=== PATIENT | male | born 1950 | race Caucasian/White ===

== ENCOUNTER → 2017-03-14 | Outpatient (CLI) | payer MEDICARE ==
[~2017-03-14] MED LIST: ALDACTONE25 MG PO; ASP325TEC PO; BNZ10T; BNZ20T PO; CLPD75T; CLPD75T PO; DIGO125T91 PO; ESCI20TA2 PO; EZET10TA5 PO; GBPN300C; INSASP10V; ISM30TCR; ISM30TCR PO; LEVEMIR; METH10TA5 PO; METO50TA7 PO; MTF500T; NAPR250T34; NFD30TCR; OXYC60TA9 PO; PNT40TEC; TRM50TRX; VYTORIN; [UNRECOGNIZED DRUG - OTHER]; [UNRECOGNIZED DRUG - OTHER]
--- NOTE | 2017-03-14 16:10 | Diagnostic Imaging Report ---
PA and lateral views of the chest. COMPARISON: 04/29/2014. INDICATION: Shortness of breath. FINDINGS: The heart size is normal. There are CABG changes and pacemaker seen. Suggestion of a left coronary stent is noted. Mild interstitial scarring is seen in the lungs with no focal airspace consolidation. There is slight elevation of the right hemidiaphragm, unchanged from 2013. No effusion or pneumothorax. IMPRESSION: No acute process. Dictated by: Dictated on workstation # [id number]
== END ==
LOC: RAD 12:09
PROVIDERS: ATTEND Internal Medicine Cardiovascular Disease
DX: I25.10 Atherosclerotic heart disease of native coronary artery without angina pectoris (principal); I25.5 Ischemic cardiomyopathy
CPT/HCPCS: 71020

== ENCOUNTER 2017-08-19 14:29 | Observation (INO) | payer MEDICARE ==
[~2017-08-19] VITALS: Ht 185.4 cm; Wt 109.7 kg
[~2017-08-19 14:29] MED LIST changes: +INSASP10V SQ
--- OUTSIDE RECORDS SUMMARY | 2017-08-19 14:37 | XMS REPORT | Continuity of Care Document ---
Author Author [facility] Organization [facility] Address Unknown Phone Unavailable Allergies Active Description Code Type Severity Reaction Onset Reported/Identified Relationship to Patient Clinical Status Yes No Known Drug Allergies [id number] Drug Allergy Unknown N/ A 03/17/2008 Medications Problems Date Dx Coded Attending Type Code Diagnosis Diagnosed By 04/28/2014 ZACKARY PAULINO DO Ot 327.23 OBSTRUCTIVE SLEEP APNEA (ADULT) ( PEDIATR 05/15/2014 ZACKARY PAULINO DO S Ot 327.23 OBSTRUCTIVE SLEEP APNEA (ADULT) ( PEDIATR 10/06/2014 Ot 241.0 03/14/2017 ZACKARY PAULINO DO S Ot 574.20 CHOLELITHIASIS NOS 03/14/2017 SAMI PAULINO DOLINE S Ot 599.70 HEMATURIA, UNSPECIFIED 03/14/2017 JOB PAULINO DOQUELINE S Ot 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 03/14/2017 SAMI PAULINO DOLINE S Ot 789.09 ABDOMINAL PAIN, OTHER SPECIFIED SITE 03/14/2017 SAMI PAULINO DOLINE S Ot 135 SARCOIDOSIS 03/14/2017 SAMI PAULINO DOLINE S Ot 515 POSTINFLAM PULM FIBROSIS 03/14/2017 ZACKARY PAULINO DO S Ot 518.0 PULMONARY COLLAPSE 03/14/2017 SAMI PAULINO DOLINE S Ot 786.09 RESPIRATORY ABNORM NEC 03/14/2017 JOB PAULINO DOQUELINE S Ot 793.19 OTHER NONSPECIFIC ABNORMAL FINDING OF IRA 04/05/2017 CARL GANDHI MD, Ot I25.10 ATHSCL HEART DISEASE OF [place] CORONARY 04/05/2017 CARL GANDHI MD, Ot I25.5 ISCHEMIC CARDIOMYOPATHY 04/12/2017 CARL GANDHI MD, Ot I25.10 ATHSCL HEART DISEASE OF [place] CORONARY 04/12/2017 CARL GANDHI MD Ot I25.5 ISCHEMIC CARDIOMYOPATHY Procedures Results Test Result Range BMP - 07/15/17 11:15 GFR 58 >=60 GFR NonAfrican Kosovan 48 >=60 SODIUM:SCNC:PT:SER/PLAS:QN: 135 mmol/L 136-145 POTASSIUM:SCNC:PT:SER/PLAS:QN: 4.5 mmol/L 3.5-5.1 CHLORIDE:SCNC:PT:SER/PLAS:QN: 100 mmol/L 98-107 CARBON DIOXIDE:SCNC:PT:SER/PLAS:QN: 26 mmol/L 21-32 ANION GAP 3:SCNC:PT:SER/PLAS:QN: 9 7-16 UREA NITROGEN:MCNC:PT:SER/PLAS:QN: 18 mg/dL 8-23 CREATININE:MCNC:PT:SER/PLAS:QN: 1.5 mg/dL 0.8-1.3 GLUCOSE:MCNC:PT:SER/PLAS:QN: 399 mg/dL 70 -110 CALCIUM:MCNC:PT:SER/PLAS:QN: 9.6 mg/dL 8.6-10.2 UREA NITROGEN/CREATININE:MRTO:PT:SER/PLAS:QN: 12.2 10.0-20.1 Glucose POC1 - 07/15/17 14:15 GLUCOSE:MCNC:PT:BLDC:QN:GLUCOMETER 294 mg/dL 74-106 Encounters ACCT No. Visit Date/Time Discharge Status Pt. Type Provider Facility Loc./Unit Complaint [id number] 03/14/2017 12:09:00 2016 23:59:59 CLS Outpatient CARL GADNHI MD [facility] RAD I25.10,I25.5 [id number] 05/14/2014 20:58:00 2013 06:45:00 DIS Outpatient ZACKARY PAULINO DO [facility] SLEEP NORI [id number] 04/29/2014 09:42:00 2013 23:59:59 CLS Outpatient ZACKARY PAULINO DO [facility] RAD HX OF SARCOID ,DYSPENEA [id number] 04/27/2014 20:32:00 08/20/ 2014 05:00:00 DIS Outpatient ZACKARY PAULINO DO [facility] SLEEP NORI,ABNORMAL LIMB MOVEMENT [id number] 08/27/2013 10:06:00 2012 23:59:59 CLS Outpatient ZACKARY PAULINO DO [facility] RAD JESUS FLANK PAIN,HEMATURIA [id number] 08/19/2017 14:31:00 ACT Emergency THALIA CABALLERO APRN [facility] ER CP [id number] 04/28/2010 10:48:00 Document Registration [id number] 07/15/2017 10:26:00 07/15/2017 15: 33:00 DIS Outpatient Carl Scruggs [facility]
[2017-08-19] MEDS ORDERED: ASPIRIN 81 MG CHEW (CHILDREN'S ASA) PO ONE (14:45)
--- NOTE | 2017-08-19 14:53 | ED Chest Pain ---
General Chief Complaint: Chest Pain Stated Complaint: CP Source: patient Exam Limitations: no limitations History of Present Illness Time seen by provider: 14:34 Initial Comments Here with report of central and left-sided chest pain as well as pain to the left posterior chest wall for the last 3-4 days. Had a pacemaker placed last month and has had some left lower chest wall discomfort since then. Arrives significant short of breath and weak. Normally at 3 L of oxygen. States that his breathing has been worse recently and it is much worse when he lays back or with activity. Denies fevers but has chills. Clammy on arrival. Timing/Duration: 3-4 days Severity/Quality: moderate, burning, pressure Location: central, back Radiation: back Activities at Onset: none Prior CP/Workup: cardiac cath, cardiolye scan, echocardiography, heart attack, stress test Modifying Factors: worse with exercise, worse with movement, improves with oxygen, improves with rest ASA po DISBURSING AGENT: Yes NTG SL DISBURSING AGENT: Yes Associated Symptoms: No abdominal pain, back pain, No diaphoresis, No edema, fatigue, fever/chills, No nausea/vomiting, shortness of breath, weakness Allergies and Home Medications Allergies Coded Allergies: No Known Drug Allergies (Verified , 03/17/08) Home Medications Aspirin 325 Mg Tablet, 325 MG PO DAILY, Ref 0 (Reported) Benazepril Hcl 20 Mg Tablet, 20 MG PO BID, Ref 0 (Reported) Clopidogrel 75 Mg Tablet, 1 EACH PO DAILY, Ref 0 (Reported) Digoxin 0.125 Mg Tab, 1 EACH PO BID, (Reported) Escitalopram Oxalate 20 Mg Tablet, 1 EACH PO DAILY, (Reported) Ezetimibe 10 Mg Tablet, 10 MG PO DAILY@0900, (Reported) Insulin Human Lispro 100 U/Ml Vial, Ref 0 (Reported) Isosorbide Mononitrate 30 Mg Tablet, 1 EACH PO BID, Ref 0 (Reported) Methimazole 10 Mg Tablet, 10 MG PO BID, (Reported) Metoprolol Succinate 50 Mg Tab, 50 MG PO DAILY, (Reported) Oxycodone Hcl 60 Mg Tab.sr.12h, 60 MG PO BID, (Reported) Spironolactone 25 Mg Tablet, 25 MG PO DAILY, (Reported) Review of Systems Constitutional: see HPI, chills, No fever, weakness EENTM: No Symptoms Reported Respiratory: See HPI, Orthopnea, Shortness of Air, SOA With Exertion, Denies Wheezing Cardiovascular: Chest Pain, Irregular Heart Rate, Lightheadedness Gastrointestinal: No Symptoms Reported, Denies Nausea, Denies Vomiting Genitourinary: Denies Flank Pain, Denies Pain Musculoskeletal: see HPI, back pain (left low chest wall), No neck pain Skin: other (pale and cool) Psychiatric/Neurological: See HPI, Denies Headache, Weakness All Other Systems Reviewed Negative Unless Noted: Yes Past Fdtddya-Zieqvt-Argygs Hx Patient Social History Alcohol Use: Denies Use Recreational Drug Use: No Smoking Status: Former Smoker Recent Foreign Travel: No Contact w/Someone Who Travel: No Surgeries History of Surgeries: Yes (lungs surgery) Surgeries: Cardiac, Defibrillator, Pacemaker Respiratory History of Respiratory Disorde: Yes (sarcoidosis) Respiratory Disorders: Chronic Bronchitis Cardiovascular History of Cardiac Disorders: Yes Cardiac Disorders: Atrial Fibrillation, Coronary Artery Disease (all), Heart Attack, High Cholesterol, Hypertension, Irregular Heartbeat Neurological History of Neurological Disord: Yes Neurological Disorders: TIA Reproductive System Hx Reproductive Disorders: No Genitourinary History of Genitourinary Disor: No Gastrointestinal History of Gastrointestinal Di: No Endocrine History of Endocrine Disorders: Yes Endocrine Disorders: Diabetes, Insulin dep Reviewed Nursing Assessment Reviewed/Agree w Nursing PMH: Yes Family Medical History Significant Family History: No Pertinent Family Hx Physical Exam Vital Signs Vital Sign - Last 12Hours 08/19/17 14:50 Temp 97.0 Pulse 97 Resp 26 B/P (MAP) 127/91 (103) Pulse Ox 98 O2 Delivery Nasal Cannula O2 Flow Rate 3.00 FiO2 100 Capillary Refill : General Appearance: No Apparent Distress, WD/WN HEENT: PERRL/EOMI, Pharynx Normal Neck: Non Tender, Supple Respiratory: Decreased Breath Sounds, Respiratory Distress (appears short of breath) Cardiovascular: No Murmur, Other (irregular heartbeat with PVCs on the monitor) Gastrointestinal: Non Tender Extremity: Normal Inspection, Normal Range of Motion, Non Tender, No Calf Tenderness Neurologic/Psychiatric: Alert, Oriented x3 Skin: Normal Color, Warm/Dry Focused Exam Evaluation Lactate Level Laboratory Tests 08/19/17 14:50: Lactic Acid Level 3.07*H 08/19/17 17:05: Lactic Acid Level 2.40*H Lactic Acid Level Laboratory Tests Test 08/19/17 14:50 08/19/17 17:05 Lactic Acid Level 3.07 MMOL/L (0.50-2.00) *H 2.40 MMOL/L (0.50-2.00) *H Progress/Results/Core Measures Results/Orders Lab Results Laboratory Tests Test 08/19/17 14:43 08/19/17 14:50 08/19/17 16:15 08/19/17 17:05 Range/Units Glucometer 232 H 70-110 MG/DL White Blood Count 7.5 4.3-11.0 10^3/uL Red Blood Count 5.65 4.35-5.85 10^6/uL Hemoglobin 15.7 13.3-17.7 G/DL Hematocrit 47 40-54 % Mean Corpuscular Volume 84 80-99 FL Mean Corpuscular Hemoglobin 28 25-34 PG Mean Corpuscular Hemoglobin Concent 33 32-36 G/DL Red Cell Distribution Width 13.4 10.0-14.5 % Platelet Count 190 130-400 10^3/uL Mean Platelet Volume 11.0 H 7.4-10.4 FL Neutrophils (%) (Auto) 71 42-75 % Lymphocytes (%) (Auto) 20 12-44 % Monocytes (%) (Auto) 8 0-12 % Eosinophils (%) (Auto) 1 0-10 % Basophils (%) (Auto) 0 0-10 % Neutrophils # (Auto) 5.3 1.8-7.8 X 10^3 Lymphocytes # (Auto) 1.5 1.0-4.0 X 10^3 Monocytes # (Auto) 0.6 0.0-1.0 X 10^3 Eosinophils # (Auto) 0.1 0.0-0.3 10^3/uL Basophils # (Auto) 0.0 0.0-0.1 10^3/uL Prothrombin Time 17.5 H 12.2-14.7 SEC INR Comment 1.4 0.8-1.4 Activated Partial Thromboplast Time 34 24-35 SEC Sodium Level 139 135-145 MMOL/L Potassium Level 3.9 3.6-5.0 MMOL/L Chloride Level 103 98-107 MMOL/L Carbon Dioxide Level 24 21-32 MMOL/L Anion Gap 12 5-14 MMOL/L Blood Urea Nitrogen 13 7-18 MG/DL Creatinine 1.13 0.60-1.30 MG/DL Estimat Glomerular Filtration Rate > 60 BUN/Creatinine Ratio 12 Glucose Level 280 H 70-105 MG/DL Lactic Acid Level 3.07 *H 2.40 *H 0.50-2.00 MMOL/L Calcium Level 9.2 8.5-10.1 MG/DL Magnesium Level 1.5 L 1.8-2.4 MG/DL Total Bilirubin 0.4 0.1-1.0 MG/DL Aspartate Amino Transf (AST/SGOT) 20 5-34 U/L Alanine Aminotransferase (ALT/SGPT) 22 0-55 U/L Alkaline Phosphatase 81 40-136 U/L Myoglobin 52.5 10.0-92.0 NG/ML Troponin I < 0.30 <0.30 NG/ML B-Type Natriuretic Peptide 127.6 H <100.0 PG/ML Total Protein 7.5 6.4-8.2 GM/DL Albumin 4.0 3.2-4.5 GM/DL Digoxin Level < 0.30 L 0.80-2.00 NG/ML Urine Color YELLOW Urine Clarity CLEAR Urine pH 5 5-9 Urine Specific [place] 1.020 1.016-1.022 Urine Protein 2+ H NEGATIVE Urine Glucose (UA) 4+ H NEGATIVE Urine Ketones NEGATIVE NEGATIVE Urine Nitrite NEGATIVE NEGATIVE Urine Bilirubin NEGATIVE NEGATIVE Urine Urobilinogen NORMAL NORMAL MG/DL Urine Leukocyte Esterase NEGATIVE NEGATIVE Urine RBC (Auto) 1+ H NEGATIVE Urine RBC 2-5 H /HPF Urine WBC NONE /HPF Urine Squamous Epithelial Cells 0-2 /HPF Urine Crystals NONE /LPF Urine Bacteria NEGATIVE /HPF Urine Casts NONE /LPF Urine Mucus NEGATIVE /LPF Urine Culture Indicated NO My Orders Orders - TJ BURROUGHS MD Digoxin (08/19/17 14:38) Blood Culture (08/19/17 14:38) Lactic Acid Analyzer (08/19/17 14:38) BNP (08/19/17 14:56) Ua Culture If Indicated (08/19/17 15:17) Accucheck Stat ONCE (08/19/17 15:24) Ct Chest Wo (08/19/17 16:42) Lipase (08/19/17 17:31) Solu-Medrol 125 Mg Iv (08/19/17 17:48) Medications Given in ED Current Medications Medications Dose Ordered Sig/Ede Route Start Time Stop Time Status Last Admin Dose Admin Aspirin 324 mg ONCE ONCE PO 08/19/17 14:45 08/19/17 14:46 DC 08/19/17 15:20 324 MG Vital Signs/I&O Vital Sign - Last 12Hours 08/19/17 08/19/17 08/19/17 14:50 14:50 14:50 Temp 97.0 Pulse 97 Resp 26 B/P (MAP) 127/91 (103) Pulse Ox 98 96 O2 Delivery Nasal Cannula Nasal Cannula Nasal Cannula O2 Flow Rate 3.00 3.00 3.00 FiO2 100 Progress Note : Progress Note Seen and evaluated. IV, labs, EKG and chest x-ray ordered. ASA 324 mg by mouth. Blood cultures and lactic acid ordered due to patient being cool and clammy and has history of pacemaker placement within the last month and a half. Diabetes is out of control. Blood sugar 230s on fingerstick. Monitor patient. 1735: I did discuss the case with Dr. Petty. Patient has history of sarcoidosis and CT scan of the chest would indicate there may be some flare to this. This would account for patient's symptoms. Also has cholelithiasis and lipase added. This seems to be a secondary finding and not necessarily what is going on currently. Patient admits that he also believes he has COPD and smoked heavily for 40 years although has quit now. In discussion with Dr. Petty, we will initiate steroid therapy overnight and control his blood sugars and converted him to orals tomorrow in an attempt to improve his symptoms. We can also give him fluids and recheck as lactic acid. All of this was discussed with patient and family who agree with plan. Admit observation status. Solu-Medrol 125 mg IV times one now. ECG Initial ECG Impression Date: Aug 19, 2017 Initial ECG Impression Time: 14:34 Initial ECG Rate: 98 Initial ECG Rhythm: S.Tach Comment Sinus tachycardia with multifocal PVCs. Normal axis. No Evidence of ST elevation SD. Underlying rhythm similar to previous of 17 August 2010. Interpreted by me. Diagnostic Imaging Diagonstic Imaging: Xray Plain Films/CT/US/NM/MRI: chest Comments [facility] [place], [place] NAME: RYAN SAMPSON [facility] REC#: [id number] PT STATUS: REG ER : 1950 PHYSICIAN: THALIA CABALLERO APRN ADMIT DATE: 08/19/17/ER Draft Date of Exam:08/19/17 CHEST 1 VIEW, AP/PA ONLY INDICATION: Left-sided chest pain. Shortness of air. COMPARISON: 03/14/2017. FINDINGS: Single frontal radiographic view of the chest was obtained and demonstrates normal cardiac silhouette and pulmonary vasculature. Sternotomy wires and left-sided AICD are noted. Lungs show areas of scarring and/or atelectasis, but otherwise clear. There is no large effusion or pneumothorax. Bony structures show no gross acute abnormalities. IMPRESSION: 1. No acute cardiopulmonary process. Dictated on workstation # [id number] Dict: 08/19/17 1511 Trans: 08/19/17 1516 [facility] [id number] Interpreted by: NGA CORBIN MD Electronically signed by: Diagonstic Imaging: CT Plain Films/CT/US/NM/MRI: chest Comments ADMIT DATE: 08/19/17/ER Draft Date of Exam:08/19/17 CT CHEST WO PROCEDURE: CT chest without contrast. TECHNIQUE: Multiple contiguous axial images were obtained through the chest without the use of intravenous contrast. INDICATION: Left posterior chest pain, history of sarcoidosis status post open heart surgery. Shortness of air when lying down. COMPARISON: Chest x-ray from the same day. FINDINGS: The left-sided AICD leads appear in stable position. There is coronary atherosclerosis. Sternotomy wires and post CABG changes are noted. The heart is stable in size. No pericardial effusion is seen. There are scattered mildly prominent mediastinal lymph nodes including a 12 mm right upper paratracheal lymph node and an 11 mm left aortopulmonary window lymph node. Linear atelectasis or scarring is seen in the right midlung. There is minimal atelectasis in the dependent lungs bilaterally. No pulmonary nodules or masses are identified. No pleural effusion or pneumothorax is seen. No acute osseous abnormality is identified. 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 The imaged portions of the upper abdomen demonstrate cholelithiasis and fatty atrophy of the pancreas. There is elevation of the right hemidiaphragm. IMPRESSION: 1. Mild mediastinal lymphadenopathy, likely related to the patient's history of sarcoidosis. 2. No acute pulmonary abnormality seen. There is atelectasis in the right midlung. 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 4. Cholelithiasis. Dictated on workstation # [id number] Dict: 08/19/171707 Trans: 08/19/171715 [id number] Interpreted by: VINOD GRAVES MD Electronically signed by: Departure Communication (Admissions) Time/Spoke to Admitting Phy: 17:40 Impression Impression: Primary Impression: Sarcoidosis of lung with sarcoidosis of lymph nodes Additional Impression: Hyperglycemia Disposition: ADMITTED INPATIENT Condition: Stable Admissions Decision to Admit Reason: Admit from ER (General) Decision to Admit/Date: Aug 19, 2017 Time/Decision to Admit Time: 17:40 Departure-Patient Inst. Referrals: ZACKARY PETTY DO (PCP/Family) Primary Care Physician TJ BURROUGHS MD Aug 19, 2017 14:53
[2017-08-19 15:07] LABS: BASOPHILS % (AUTO) 0 % (0-10); EOSINOPHILS # (AUTO) 0.1 10^3/uL (0.0-0.3); EOSINOPHILS % (AUTO) 1 % (0-10); LYMPHOCYTES # (AUTO) 1.5 X 10^3 (1.0-4.0); LYMPHOCYTES % (AUTO) 20 % (12-44); MEAN CORPUSCULAR HEMOGLOBIN 28 PG (25-34); MEAN CORPUSCULAR HGB CONC 33 G/DL (32-36); MEAN CORPUSCULAR VOLUME 84 FL (80-99); MONOCYTES # (AUTO) 0.6 X 10^3 (0.0-1.0); MONOCYTES % (AUTO) 8 % (0-12); NEUTROPHILS # (AUTO) 5.3 X 10^3 (1.8-7.8); NEUTROPHILS % (AUTO) 71 % (42-75); PLATELET COUNT 190 10^3/uL (130-400); RED BLOOD COUNT 5.65 10^6/uL (4.35-5.85); RED CELL DISTRIBUTION WIDTH 13.4 % (10.0-14.5); WHITE BLOOD COUNT 7.5 10^3/uL (4.3-11.0)
--- NOTE | 2017-08-19 15:16 | Diagnostic Imaging Report ---
INDICATION: Left-sided chest pain. Shortness of air. COMPARISON: 03/14/2017. FINDINGS: Single frontal radiographic view of the chest was obtained and demonstrates normal cardiac silhouette and pulmonary vasculature. Sternotomy wires and left-sided AICD are noted. Lungs show areas of scarring and/or atelectasis, but otherwise clear. There is no large effusion or pneumothorax. Bony structures show no gross acute abnormalities. IMPRESSION: 1. No acute cardiopulmonary process. Dictated by: Dictated on workstation # [id number]
[2017-08-19 15:20] LABS: INR 1.4 (0.8-1.4); PROTHROMBIN TIME PATIENT 17.5 SEC (12.2-14.7)
[2017-08-19 15:26] LABS: ALANINE AMINOTRANSFERASE 22 U/L (0-55); ANION GAP 12 MMOL/L (5-14); ASPARTATE AMINO TRANSFERASE 20 U/L (5-34); BILIRUBIN,TOTAL 0.4 MG/DL (0.1-1.0); BLOOD UREA NITROGEN 13 MG/DL (7-18); BUN/CREATININE RATIO 12; CALCIUM 9.2 MG/DL (8.5-10.1); CARBON DIOXIDE 24 MMOL/L (21-32); CHLORIDE 103 MMOL/L (98-107); CREATININE SERUM 1.13 MG/DL (0.60-1.30); GFR ESTIMATED > 60; GLUCOSE 280 MG/DL (70-105); MAGNESIUM 1.5 MG/DL (1.8-2.4); POTASSIUM 3.9 MMOL/L (3.6-5.0); SODIUM 139 MMOL/L (135-145); TOTAL PROTEIN 7.5 GM/DL (6.4-8.2)
[2017-08-19 15:33] LABS: MYOGLOBIN SERUM 52.5 NG/ML (10.0-92.0)
[2017-08-19 16:21] LABS: BILIRUBIN,URINE NEGATIVE (NEGATIVE); KETONES,URINE NEGATIVE (NEGATIVE); LEUKOCYTE ESTERASE ,URINE NEGATIVE (NEGATIVE); NITRITE,URINE NEGATIVE (NEGATIVE); PH,URINE 5 (5-9); PROTEIN,URINE 2+ (NEGATIVE); UROBILINOGEN,URINE NORMAL (NORMAL)
[2017-08-19 16:36] LABS: SQUAMOUS EPITHELIAL CELL,UR 0-2 /HPF
--- NOTE | 2017-08-19 17:17 | Diagnostic Imaging Report ---
PROCEDURE: CT chest without contrast. TECHNIQUE: Multiple contiguous axial images were obtained through the chest without the use of intravenous contrast. INDICATION: Left posterior chest pain, history of sarcoidosis status post open heart surgery. Shortness of air when lying down. COMPARISON: Chest x-ray from the same day. FINDINGS: The left-sided AICD leads appear in stable position. There is coronary atherosclerosis. Sternotomy wires and post CABG changes are noted. The heart is stable in size. No pericardial effusion is seen. There are scattered mildly prominent mediastinal lymph nodes including a 12 mm right upper paratracheal lymph node and an 11 mm left aortopulmonary window lymph node. Linear atelectasis or scarring is seen in the right midlung. There is minimal atelectasis in the dependent lungs bilaterally. No pulmonary nodules or masses are identified. No pleural effusion or pneumothorax is seen. No acute osseous abnormality is identified. 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 The imaged portions of the upper abdomen demonstrate cholelithiasis and fatty atrophy of the pancreas. There is elevation of the right hemidiaphragm. IMPRESSION: 1. Mild mediastinal lymphadenopathy, likely related to the patient's history of sarcoidosis. 2. No acute pulmonary abnormality seen. There is atelectasis in the right midlung. 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 4. Cholelithiasis. Dictated by: Dictated on workstation # [id number]
[2017-08-19] MEDS ORDERED: methylPREDNISolone 125 MG (Solu-MEDROL) VIAL IV STA (17:48)
[2017-08-19 18:40] VITALS: BP 165/72
[2017-08-19] MEDS ORDERED: TAMS0.4C2 PO (19:02)
[2017-08-19] MEDS ORDERED: DIGO125T PO (19:02)
[2017-08-19] MEDS ORDERED: RIVA20TA PO (19:02)
[2017-08-19] MEDS ORDERED: MORP-34 PO (19:02)
[2017-08-19] MEDS ORDERED: ASPI-999 PO (19:02)
[2017-08-19] MEDS ORDERED: OXYC-465 PO (19:02)
[2017-08-19] MEDS ORDERED: PANT40TA3 PO (19:02)
[2017-08-19] MEDS ORDERED: FINA5TAB6 PO (19:02)
[2017-08-19] MEDS ORDERED: INSU100V SQ (19:10)
[2017-08-19] MEDS ORDERED: ONDANSETRON 4 MG/2 ML (SDV) Z0FRAN IV PRN (19:30)
[2017-08-19] MEDS ORDERED: CATHETER FLUSH 10 ML SYR IV PRN (19:30)
[2017-08-19 20:00] VITALS: BP 157/76
[2017-08-19] MEDS ORDERED: RT-ALBUTEROL/IPRATROPIUM 3 ML (DUONEB) VIAL INH PRN (20:00)
[2017-08-19] MEDS: NS IV 1000 ML 1,000 ML IV SCH (20:35)
[2017-08-20] VITALS: BP 148/67
[2017-08-20] MEDS: methylPREDNISolone 125 MG (Solu-MEDROL) VIAL IV SCH ×2 (01:38→10:31)
[2017-08-20 04:21] VITALS: BP 151/80
[2017-08-20] MEDS: NS IV 1000 ML 1,000 ML IV SCH ×2 (04:31→11:41)
[2017-08-20 05:44] LABS: BASOPHILS % (AUTO) 0 % (0-10); EOSINOPHILS % (AUTO) 0 % (0-10); LYMPHOCYTES # (AUTO) 0.9 X 10^3 (1.0-4.0); LYMPHOCYTES % (AUTO) 9 % (12-44); MEAN CORPUSCULAR HEMOGLOBIN 28 PG (25-34); MEAN CORPUSCULAR HGB CONC 33 G/DL (32-36); MEAN CORPUSCULAR VOLUME 84 FL (80-99); MEAN PLATELET VOLUME 11.3 FL (7.4-10.4); MONOCYTES # (AUTO) 0.1 X 10^3 (0.0-1.0); MONOCYTES % (AUTO) 1 % (0-12); NEUTROPHILS # (AUTO) 9.3 X 10^3 (1.8-7.8); NEUTROPHILS % (AUTO) 91 % (42-75); PLATELET COUNT 190 10^3/uL (130-400); RED BLOOD COUNT 5.42 10^6/uL (4.35-5.85); RED CELL DISTRIBUTION WIDTH 13.3 % (10.0-14.5); WHITE BLOOD COUNT 10.3 10^3/uL (4.3-11.0)
[2017-08-20 06:00] LABS: BAND NEUTROPHILS 0 %; BASOPHILS % (MANUAL) 0 %; EOSINOPHILS % (MANUAL) 0 %; LYMPHOCYTES % (MANUAL) 5 %; NEUTROPHILS % (MANUAL) 91 %; REACTIVE LYMPHOCYTES 4 %
[2017-08-20 06:03] LABS: ALANINE AMINOTRANSFERASE 17 U/L (0-55); ALBUMIN 3.9 GM/DL (3.2-4.5); ANION GAP 12 MMOL/L (5-14); ASPARTATE AMINO TRANSFERASE 16 U/L (5-34); BILIRUBIN,TOTAL 0.5 MG/DL (0.1-1.0); BLOOD UREA NITROGEN 17 MG/DL (7-18); BUN/CREATININE RATIO 15; CALCIUM 9.2 MG/DL (8.5-10.1); CARBON DIOXIDE 21 MMOL/L (21-32); CHLORIDE 103 MMOL/L (98-107); CHOLESTEROL 100 MG/DL (< 200); CREATININE SERUM 1.12 MG/DL (0.60-1.30); GFR ESTIMATED > 60; GLUCOSE 317 MG/DL (70-105); POTASSIUM 4.2 MMOL/L (3.6-5.0); SODIUM 136 MMOL/L (135-145); TOTAL PROTEIN 6.9 GM/DL (6.4-8.2); TRIGLYCERIDES 35 MG/DL (<150); VLDL CHOLESTEROL 7 MG/DL (5-40)
[2017-08-20 06:04] LABS: DIRECT LDL 39 MG/DL (1-129)
[2017-08-20] MEDS: RT-ALBUTEROL/IPRATROPIUM 3 ML (DUONEB) VIAL INH SCH ×2 (07:58→11:33)
[2017-08-20 08:00] VITALS: BP 147/70
[2017-08-20 12:00] VITALS: BP 137/62
[2017-08-20] MEDS ORDERED: PRD20T PO (12:21)
[2017-08-20] MEDS ORDERED: IPRA3AMP INH (12:21)
[2017-08-20] MEDS ORDERED: PATIENT MAY USE OWN MEDS, ALL MC SCH (12:30)
[2017-08-20] MEDS ORDERED: oxyCODONE/APAP 10/325MG (PERCOCET 10) TABLET PO PRN (12:30)
[2017-08-20 13:30] VITALS: BP 137/62
[2017-08-20] MEDS ORDERED: NON-FORMULARY MEDICATION 1 EA EA (Tamsulosin HCl 0.4 MG) PO SCH (17:00)
[2017-08-20] MEDS ORDERED: DIGOXIN 0.125 MG (LANOXIN) TAB PO SCH (17:00)
[2017-08-20] MEDS ORDERED: RIVAROXABAN 20 MG TABLET (XARELTO) PO SCH (17:00)
[2017-08-20] MEDS ORDERED: PANTOPRAZOLE 40 MG (PROTONIX) TAB PO SCH (17:00)
[2017-08-20] MEDS ORDERED: morphine ER 30 MG (MS CONTIN) TAB PO SCH (17:00)
[2017-08-20] MEDS ORDERED: NON-FORMULARY MEDICATION 1 EA EA (Finasteride 5 MG) PO SCH (17:00)
[2017-08-20] MEDS ORDERED: ASPIRIN 81 MG CHEW (CHILDREN'S ASA) PO SCH (17:00)
--- NOTE | 2017-08-20 20:21 | Short Stay Summary ---
History of Present Illness History of Present Illness Reason for visit/HPI This is a 67 year old male with a history of CAD as well as sarcoidosis who presented to the emergency room with complaint of left sided chest pain radiating through to his back and shortness of air worse with lying down. He had a recent pacemaker replacement and has had some chest discomfort since this procedure but the shortness of air just started in the last few days and has worsened. His cardiac enzymes were negative and his CXR and CT scan of the chest just showed mediastinal lymphadenopathy consistent with his known history of sarcoid. His blood sugar was elevated in the emergency room and the patient admitted to noncompliance with his diet. It was felt that he was likely having a flare-up of his sarcoid so IV steroids were given and it was decided to admit him for observation. His lactic acid was elevated but this was felt to be secondary to hypoxia and not sepsis. Date of Admission Aug 19, 2017 at 5:45 pm Date of Discharge Aug 20, 2017 at 1:30 pm Time Seen by Provider: 08:45 Attending Physician Dolores Petty DO Admitting Physician Dolores Petty DO Consult Allergies and Home Medications Allergies Coded Allergies: No Known Drug Allergies (Verified , 03/17/08) Home Medications Aspirin 81 Mg Tab.chew, 81 MG PO 1700, (Reported) Digoxin 125 Mcg Tablet, 125 MCG PO [id number]@1700, (Reported) Finasteride 5 Mg Tablet, 5 MG PO 1700, (Reported) Insulin Lispro 100 Unit/1 Ml Vial, Unknown Dose SQ 5XD, (Reported) USES VIA INSULIN PUMP Ipratropium/Albuterol Sulfate 3 Ml Ampul.neb, 3 ML INH RTQID, #50 Prescribed by: DOLORES PETTY on 08/20/17 1221 Morphine Sulfate 30 Mg Tablet.er, 60 MG PO 1700, (Reported) TAKES 2 (30 MG) TABLETS Oxycodone HCl/Acetaminophen 1 Each Tablet, 2 TAB PO Q6H PRN for PAIN-MODERATE, ( Reported) Pantoprazole Sodium 40 Mg Tablet.dr, 40 MG PO 1700, (Reported) Prednisone 20 Mg Tab, 20 MG PO UD, #18 TID for 3 days then BID for 3 days then daily for 3 days Prescribed by: DOLORES PETTY on 08/20/17 1221 Rivaroxaban 20 Mg Tablet, 20 MG PO 1700, (Reported) Tamsulosin HCl 0.4 Mg Cap.er.24h, 0.4 MG PO 1700, (Reported) Past Zcufbtd-Rbqnpi-Sawygp Hx Patient Social History Alcohol Use: Denies Use Recreational Drug Use: No Smoking Status: Former Smoker Former Smoker, Quit: May 20, 2001 Type Used: Cigarettes Physical Abuse Screen: No Sexual Abuse: No Recent Foreign Travel: No Contact w/other who traveled: No Recent Hopitalizations: No Recent Infectious Disease Expo: No Immunizations Up To Date Date of Pneumonia Vaccine: Jun 23, 2014 Date of Influenza Vaccine: Jun 11, 2017 Seasonal Allergies Seasonal Allergies: No Surgeries Yes (BYPASS X2, BACK, SHOULDER , NERVE RELEASE ON RIGHT ELBOW) Cardiac, Defibrillator, Pacemaker Respiratory Yes (sarcoidosis) Currently Using CPAP: No Currently Using BIPAP: Yes Cardiovascular Yes Atrial Fibrillation, Coronary Artery Disease (all), Heart Attack, High Cholesterol, Hypertension, Irregular Heartbeat Neurological Yes TIA Reproductive System Hx Reproductive Disorders: No Genitourinary No Gastrointestinal No Musculoskeletal Yes Chronic Back Pain Endocrine History of Endocrine Disorders: Yes Endocrine Disorders: Diabetes, Insulin dep Are Your Blood Sugars Over 250: Yes HEENT History of HEENT Disorders: No Cancer No Psychosocial History of Psychiatric Problem: Yes Behavioral Health Disorders: Depression Integumentary History of Skin or Integumenta: No Blood Transfusions History of Blood Disorders: No Reviewed Nursing Assessment Reviewed/Agree w Nursing PMH: Yes Family Medical History Significant Family History: No Pertinent Family Hx Family Hx: Arthritis 19 FATHER 19 MOTHER G8 SISTER G8 SISTER G8 SISTER Cataracts G8 SISTER Diabetes mellitus G8 SISTER G8 SISTER Constitutional: weakness EENTM: No see HPI, No no symptoms reported, No ear discharge, No hearing loss, No ear pain, No blurred vision, No double vision, No eye pain, No tearing, No vision loss, No dental problems, No hoarseness, No mouth pain, No mouth swelling , No epistaxis, No nose congestion, No nose pain, No throat pain, No throat swelling, No other Respiratory: cough, orthopnea, short of breath Cardiovascular: chest pain Gastrointestinal: No RUQ, No LUQ, No RLQ, No LLQ, No no symptoms reported, No see HPI, No abdominal pain, No constipation, No diarrhea, No dysphagia, No hematemesis, No heartburn, No jaundice, No loss of appetite, No melena, No nausea, No vomiting, No other Genitourinary: No no symptoms reported, No see HPI, No decreased output, No discharge, No dysuria, No frequency, No hematuria, No hesitancy, No incontinence , No nocturia, No pain, No other Musculoskeletal: back pain Skin: No no symptoms reported, No see HPI, No change in color, No change in hair/nails, No dryness, No hx of skin cancer, No lesions, No lumps, No pruritus , No rash, No other Psychiatric/Neurological: Weakness Physical Exam Vital Signs Vital Sign - Last 12Hours 08/19/17 14:50 Temp 97.0 Pulse 97 Resp 26 B/P (MAP) 127/91 (103) Pulse Ox 98 O2 Delivery Nasal Cannula O2 Flow Rate 3.00 FiO2 100 Capillary Refill : Less Than 3 Seconds General Appearance: No Apparent Distress Neck: Supple Respiratory: Lungs Clear Cardiovascular: Regular Rate, Rhythm, Systolic Murmur, Gallop/S4 Gastrointestinal: Normal Bowel Sounds, Non Tender, Soft Rectal: Deferred Back: No CVA Tenderness Extremity: Non Tender, No Calf Tenderness, No Pedal Edema Neurologic/Psychiatric: Alert, Oriented x3 Skin: Warm/Dry Comments Laboratory Tests 08/19/17 21:04: Glucometer 320H 08/20/17 05:18: White Blood Count 10.3, Red Blood Count 5.42, Hemoglobin 14.9, Hematocrit 46, Mean Corpuscular Volume 84, Mean Corpuscular Hemoglobin 28, Mean Corpuscular Hemoglobin Concent 33, Red Cell Distribution Width 13.3, Platelet Count 190, Mean Platelet Volume 11.3H, Neutrophils (%) (Auto) 91H, Lymphocytes (%) (Auto) 9L, Monocytes (%) (Auto) 1, Eosinophils (%) (Auto) 0, Basophils (%) (Auto) 0, Neutrophils # (Auto) 9.3H, Lymphocytes # (Auto) 0.9L, Monocytes # (Auto) 0.1, Eosinophils # (Auto) 0.0, Basophils # (Auto) 0.0, Neutrophils % (Manual) 91, Lymphocytes % (Manual) 5, Monocytes % (Manual) 0, Eosinophils % (Manual) 0, Basophils % (Manual) 0, Band Neutrophils 0, Reactive Lymphocytes 4, Toxic Granulation 1+, Sodium Level 136, Potassium Level 4.2, Chloride Level 103, Carbon Dioxide Level 21, Anion Gap 12, Blood Urea Nitrogen 17, Creatinine 1.12, Estimat Glomerular Filtration Rate > 60, BUN/Creatinine Ratio 15, Glucose Level 317H, Lactic Acid Level 1.90, Calcium Level 9.2, Total Bilirubin 0.5, Aspartate Amino Transf (AST/SGOT) 16, Alanine Aminotransferase (ALT/SGPT) 17, Alkaline Phosphatase 97, Total Protein 6.9, Albumin 3.9, Triglycerides Level 35, Cholesterol Level 100, LDL Cholesterol Direct 39, VLDL Cholesterol 7, HDL Cholesterol 47 08/20/17 10:39: Glucometer 351H Microbiology 08/19/17 Blood Culture - Preliminary, Resulted No growth Clinical Quality Measures AMI/AHF: ASA po Prior to arrival: Yes DVT/VTE Risk/Contraindication: Risk Factor Score Per Nursin RFS Level Per Nursing on Admit: 4+=Very High Short Stay Diagnosis Discharge Diagnosis-Short Stay Admission Diagnosis: 1. Chest Pain, noncardiac--likely chest wall from recent pacemaker replacement 2. Dyspnea from exacerbation of Sarcoid--has resolved with IV steroids 3. Diabetes mellitus, insulin requiring--uncontrolled and noncompliant 4. Elevated Lactic Acid due to Hypoxia--resolved, no signs of sepsis Final Discharge Diagnosis: 1. Chest Pain, noncardiac--likely chest wall from recent pacemaker replacement 2. Dyspnea from exacerbation of Sarcoid--has resolved with IV steroids 3. Diabetes mellitus, insulin requiring--uncontrolled and noncompliant 4. Elevated Lactic Acid due to Hypoxia--resolved, no signs of sepsis Conclusion Labs Laboratory Tests 08/19/17 21:04: Glucometer 320H 08/20/17 05:18: White Blood Count 10.3, Red Blood Count 5.42, Hemoglobin 14.9, Hematocrit 46, Mean Corpuscular Volume 84, Mean Corpuscular Hemoglobin 28, Mean Corpuscular Hemoglobin Concent 33, Red Cell Distribution Width 13.3, Platelet Count 190, Mean Platelet Volume 11.3H, Neutrophils (%) (Auto) 91H, Lymphocytes (%) (Auto) 9L, Monocytes (%) (Auto) 1, Eosinophils (%) (Auto) 0, Basophils (%) (Auto) 0, Neutrophils # (Auto) 9.3H, Lymphocytes # (Auto) 0.9L, Monocytes # (Auto) 0.1, Eosinophils # (Auto) 0.0, Basophils # (Auto) 0.0, Neutrophils % (Manual) 91, Lymphocytes % (Manual) 5, Monocytes % (Manual) 0, Eosinophils % (Manual) 0, Basophils % (Manual) 0, Band Neutrophils 0, Reactive Lymphocytes 4, Toxic Granulation 1+, Sodium Level 136, Potassium Level 4.2, Chloride Level 103, Carbon Dioxide Level 21, Anion Gap 12, Blood Urea Nitrogen 17, Creatinine 1.12, Estimat Glomerular Filtration Rate > 60, BUN/Creatinine Ratio 15, Glucose Level 317H, Lactic Acid Level 1.90, Calcium Level 9.2, Total Bilirubin 0.5, Aspartate Amino Transf (AST/SGOT) 16, Alanine Aminotransferase (ALT/SGPT) 17, Alkaline Phosphatase 97, Total Protein 6.9, Albumin 3.9, Triglycerides Level 35, Cholesterol Level 100, LDL Cholesterol Direct 39, VLDL Cholesterol 7, HDL Cholesterol 47 08/20/17 10:39: Glucometer 351H Microbiology 08/19/17 Blood Culture - Preliminary, Resulted No growth Conclusion/Plan Patient was admitted for observation to the medical floor and given IV solumedrol. His dyspnea and chest pain resolved completely with the IV solumedrol. His blood sugar did spike after the IV solumedrol but he states his blood sugar has been running high at home as well due to eating Ruthie candy. His lactic acid came back to normal and by the morning of discharge he was anxious to go home. It was decided to discharge him home on all his current home medications with the addition of a prednisone taper, duoneb breathing treatments and increase in his daytime pump settings for his insulin. He will followup with me in my office on August 31 which was his already scheduled appointment. DOLORES PETTY DO Aug 20, 2017 8:21 pm
== END 2017-08-20 12:22 | disposition home or self-care (01) ==
LOC: EDUNIT# 14:29 → ER 14:31 → 4TH 17:45 → UNDOADMOB 17:45 → 4TH 18:45 → UNDODISOB 08-20 13:30
PROVIDERS: ADMIT Family Medicine; ATTEND Family Medicine
DX: R07.89 Other chest pain (principal); D86.9 Sarcoidosis, unspecified; R09.02 Hypoxemia; I25.10 Atherosclerotic heart disease of native coronary artery without angina pectoris; E11.65 Type 2 diabetes mellitus with hyperglycemia; I48.91 Unspecified atrial fibrillation; I10 Essential (primary) hypertension; E78.00 Pure hypercholesterolemia, unspecified; F32.9 Major depressive disorder, single episode, unspecified; I25.2 Old myocardial infarction; Z91.11 Patient's noncompliance with dietary regimen; Z87.891 Personal history of nicotine dependence; Z86.73 Personal history of transient ischemic attack (TIA), and cerebral infarction without residual deficits; Z95.810 Presence of automatic (implantable) cardiac defibrillator; Z95.1 Presence of aortocoronary bypass graft; Z79.4 Long term (current) use of insulin
CPT/HCPCS: 36415; 71010; 71250; 80053; 80061; 80162; 81000; 82962; 83605; 83690; 83735; 83874; 83880; 84484; 85007; 85025; 85027; 85610; 85730; 87040; 93005; 93041; 94640; 94760; 96374; G0378

== ENCOUNTER 2017-11-07 16:00 | Emergency (ER) | payer MEDICARE ==
[~2017-11-07] VITALS: Ht 185.4 cm; Wt 111.6 kg
[~2017-11-07 16:00] MED LIST changes: +ASPI-999 PO; +DIGO125T PO; +FINA5TAB6 PO; +INSU100V SQ; +IPRA3AMP INH; +MORP-34 PO; +OXYC-465 PO; +PANT40TA3 PO; +PRD20T PO; +RIVA20TA PO; +TAMS0.4C2 PO
--- OUTSIDE RECORDS SUMMARY | 2017-11-07 16:05 | XMS REPORT | Continuity of Care Document ---
Author Author [facility] Organization [facility] Address Unknown Phone Unavailable Allergies Active Description Code Type Severity Reaction Onset Reported/Identified Relationship to Patient Clinical Status Yes No Known Drug Allergies [id number] Drug Allergy Unknown N/A 03/17/2008 Medications There is no data. Problems Date Dx Coded Attending Type Code Diagnosis Diagnosed By 04/28/2014 ZACKARY PAULINO DO Ot 327.23 OBSTRUCTIVE SLEEP APNEA (ADULT) (PEDIATR 05/15/2014 ZACKARY PAULINO DO S Ot 327.23 OBSTRUCTIVE SLEEP APNEA (ADULT) (PEDIATR 10/06/2014 Ot 241.0 03/14/2017 ZACKARY PAULINO DO S Ot 574.20 CHOLELITHIASIS NOS 03/14/2017 SAMI PAULINO DOLINE S Ot 599.70 HEMATURIA, UNSPECIFIED 03/14/2017 JOB PAULINO DOQUELINE S Ot 600.00 HYPERTROPHY (BENIGN) OF PROSTATE W/O URI 03/14/2017 SAMI PAULINO DOLINE S Ot 789.09 ABDOMINAL PAIN, OTHER SPECIFIED SITE 03/14/2017 SAMI PAULINO DOLINE S Ot 135 SARCOIDOSIS 03/14/2017 SAMI PAULINO DOLINE S Ot 515 POSTINFLAM PULM FIBROSIS 03/14/2017 ZACKARY PAULINO DO S Ot 518.0 PULMONARY COLLAPSE 03/14/2017 JOB PAULINO DOQUELINE S Ot 786.09 RESPIRATORY ABNORM NEC 03/14/2017 JOB PAULINO DOQUELINE S Ot 793.19 OTHER NONSPECIFIC ABNORMAL FINDING OF [place] 04/05/2017 OKSANA GONZÁLES, CARL Arnold Ot I25.10 ATHSCL HEART DISEASE OF [place] CORONARY 04/05/2017 CARL GANDHI MD Ot I25.5 ISCHEMIC CARDIOMYOPATHY 04/12/2017 CARL GANDHI MD Ot I25.10 ATHSCL HEART DISEASE OF [place] CORONARY 04/12/2017 OKSANA GONZÁLES, CARL Arnold Ot I25.5 ISCHEMIC CARDIOMYOPATHY 08/20/2017 ZACKARY PAULINO DO S Ot D86.9 SARCOIDOSIS, UNSPECIFIED 08/20/2017 SAMI PAULINO DOLINE S Ot E11.65 TYPE 2 DIABETES MELLITUS WITH HYPERGLYCE 08/20/2017 SAMI PAULINO DOLINE S Ot E78.00 PURE HYPERCHOLESTEROLEMIA, UNSPECIFIED 08/20/2017 SAMI PAULINO DOLINE S Ot F32.9 MAJOR DEPRESSIVE DISORDER, SINGLE EPISOD 08/20/2017 SAMI PAULINO DOLINE S Ot I10 ESSENTIAL (PRIMARY) HYPERTENSION 08/20/2017 SAMI PAULINO DOLINE S Ot I25.10 ATHSCL HEART DISEASE OF [place] CORONARY 08/20/2017 SAMI PAULINO DOLINE S Ot I25.2 OLD MYOCARDIAL INFARCTION 08/20/2017 SAMI PAULINO DOLINE S Ot I48.91 UNSPECIFIED ATRIAL FIBRILLATION 08/20/2017 SAMI PAULINO DOLINE S Ot R07.89 OTHER CHEST PAIN 08/20/2017 SAMI PAULINO DOLINE S Ot R09.02 HYPOXEMIA 08/20/2017 SAMI PAULINO DOLINE S Ot Z79.4 GLOBAL REGULATORY LEAD (CURRENT) USE OF INSULIN 08/20/2017 SAMI PAULINO DOLINE S Ot Z86.73 PRSNL HX OF TIA (TIA), AND CEREB INFRC W 08/20/2017 SAMI PAULINO DOLINE S Ot Z87.891 PERSONAL HISTORY OF NICOTINE DEPENDENCE 08/20/2017 ZACKARY PAULINO DO S Ot Z91.11 PATIENT'S NONCOMPLIANCE WITH DIETARY REG 08/20/2017 SAMI PAULINO DOLINE S Ot Z95.1 PRESENCE OF AORTOCORONARY BYPASS GRAFT 08/20/2017 SAMI PAULINO DOLINE S Ot Z95.810 PRESENCE OF AUTOMATIC (IMPLANTABLE) CARD Procedures There is no data. Results Test Result Range BMP - 07/15/17 11:15 GFR 58 >=60 GFR NonAfrican [place] 48 >=60 SODIUM:SCNC:PT:SER/PLAS:QN: 135 mmol/L 136-145 POTASSIUM:SCNC:PT:SER/PLAS:QN: 4.5 mmol/L 3.5-5.1 CHLORIDE:SCNC:PT:SER/PLAS:QN: 100 mmol/L 98-107 [place] DIOXIDE:SCNC:PT:SER/PLAS:QN: 26 mmol/L 21-32 ANION GAP 3:SCNC:PT:SER/PLAS:QN: 9 7-16 UREA NITROGEN:MCNC:PT:SER/PLAS:QN: 18 mg/dL 8-23 CREATININE:MCNC:PT:SER/PLAS:QN: 1.5 mg/dL 0.8-1.3 GLUCOSE:MCNC:PT:SER/PLAS:QN: 399 mg/dL 70-110 CALCIUM:MCNC:PT:SER/PLAS:QN: 9.6 mg/dL 8.6-10.2 UREA NITROGEN/CREATININE:MRTO:PT:SER/PLAS:QN: 12.2 10.0- 20.1 Glucose POC1 - 07/15/17 14:15 GLUCOSE:MCNC:PT:BLDC:QN:GLUCOMETER 294 mg/dL 74-106 Capillary blood glucose measurement by glucometer (mass/volume) - 08/19/17 14: 43 Capillary blood glucose measurement by glucometer (mass/volume) 232 mg/dL 70-110 Complete blood count (CBC) with automated white blood cell (WBC) differential - 08/19/17 14:50 Blood leukocytes automated count (number/volume) 7.5 10*3/uL 4.3-11.0 Blood erythrocytes automated count (number/volume) 5.65 10*6/uL 4.35-5.85 Venous blood hemoglobin measurement (mass/volume) 15.7 g/dL 13.3-17.7 Blood hematocrit (volume fraction) 47 % 40-54 Automated erythrocyte mean corpuscular volume 84 [foz_us] 80-99 Automated erythrocyte mean corpuscular hemoglobin (mass per erythrocyte) 28 pg 25-34 Automated erythrocyte mean corpuscular hemoglobin concentration measurement ( mass/volume) 33 g/dL 32-36 Automated erythrocyte distribution width ratio 13.4 % 10.0-14.5 Automated blood platelet count (count/volume) 190 10*3/uL 130-400 Automated blood platelet mean volume measurement 11.0 [foz_us] 7.4-10.4 Automated blood neutrophils/100 leukocytes 71 % 42-75 Automated blood lymphocytes/100 leukocytes 20 % 12-44 Blood monocytes/100 leukocytes 8 % 0-12 Automated blood eosinophils/100 leukocytes 1 % 0-10 Automated blood basophils/100 leukocytes 0 % 0-10 Blood neutrophils automated count (number/volume) 5.3 10*3 1.8-7.8 Blood lymphocytes automated count (number/volume) 1.5 10*3 1.0-4.0 Blood monocytes automated count (number/volume) 0.6 10*3 0.0-1.0 Automated eosinophil count 0.1 10*3/uL 0.0-0.3 Automated blood basophil count (count/volume) 0.0 10*3/uL 0.0-0.1 Blood lactic acid measurement (moles/volume) - 08/19/17 14:50 Blood lactic acid measurement (moles/volume) 3.07 mmol/L 0.50-2.00 Comprehensive metabolic panel - 08/19/17 14:50 Serum or plasma sodium measurement (moles/volume) 139 mmol/L 135-145 Serum or plasma potassium measurement (moles/volume) 3.9 mmol/L 3.6-5.0 Serum or plasma chloride measurement (moles/volume) 103 mmol/L 98-107 Carbon dioxide 24 mmol/L 21-32 Serum or plasma anion gap determination (moles/volume) 12 mmol/L 5-14 Serum or plasma urea nitrogen measurement (mass/volume) 13 mg/dL 7-18 Serum or plasma creatinine measurement (mass/volume) 1.13 mg/dL 0.60-1.30 Serum or plasma urea nitrogen/creatinine mass ratio 12 NRG Serum or plasma creatinine measurement with calculation of estimated glomerular filtration rate > NRG Serum or plasma glucose measurement (mass/volume) 280 mg/dL 70-105 Serum or plasma calcium measurement (mass/volume) 9.2 mg/dL 8.5-10.1 Serum or plasma total bilirubin measurement (mass/volume) 0.4 mg/dL 0.1-1.0 Serum or plasma alkaline phosphatase measurement (enzymatic activity/volume) 81 U/L 40-136 Serum or plasma aspartate aminotransferase measurement (enzymatic activity/ volume) 20 U/L 5-34 Serum or plasma alanine aminotransferase measurement (enzymatic activity/volume ) 22 U/L 0-55 Serum or plasma protein measurement (mass/volume) 7.5 g/dL 6.4-8.2 Serum or plasma albumin measurement (mass/volume) 4.0 g/dL 3.2-4.5 Magnesium - 08/19/17 14:50 Magnesium 1.5 mg/dL 1.8-2.4 PT panel in platelet poor plasma by coagulation assay - 08/19/17 14:50 Prothrombin time (PT) in platelet poor plasma by coagulation assay 17.5 s 12.2-14.7 INR in platelet poor plasma or blood by coagulation assay 1.4 0.8-1.4 Activated partial thromboplastin time (aPTT) in platelet poor plasma bycoagulation assay - 08/19/17 14:50 Activated partial thromboplastin time (aPTT) in platelet poor plasma bycoagulation assay 34 s 24-35 Serum or plasma troponin i.cardiac measurement (mass/volume) - 08/19/17 14:50 Serum or plasma troponin i.cardiac measurement (mass/volume) < ng/ mL <0.30 Myoglobin, serum - 08/19/17 14:50 Myoglobin, serum 52.5 ng/mL 10.0-92.0 Digoxin - 08/19/17 14:50 Digoxin < ng/mL 0.80-2.00 Serum or plasma lithium measurement (moles/volume) - 08/19/17 14:50 BNP level 127.6 pg/mL <100.0 Lipase - 08/19/17 14:50 Lipase 16 U/L 8-78 Bacterial blood culture - 08/19/17 14:50 Bacterial blood culture NG NRG Bacterial blood culture - 08/19/17 15:34 Bacterial blood culture NG NRG Complete urinalysis with reflex to culture - 08/19/17 16:15 Urine color determination YELLOW NRG Urine clarity determination CLEAR NRG Urine pH measurement by test strip 5 5-9 Specific gravity of urine by test strip 1.020 1.016- 1.022 Urine protein assay by test strip, semi-quantitative 2+ NEGATIVE Urine glucose detection by automated test strip 4+ NEGATIVE Erythrocytes detection in urine sediment by light microscopy 1+ NEGATIVE Urine ketones detection by automated test strip NEGATIVE NEGATIVE Urine nitrite detection by test strip NEGATIVE NEGATIVE Urine total bilirubin detection by test strip NEGATIVE NEGATIVE Urine urobilinogen measurement by automated test strip (mass/volume) NORMAL NORMAL Urine leukocyte esterase detection by dipstick NEGATIVE NEGATIVE Automated urine sediment erythrocyte count by microscopy (number/high power field) [HPF] NRG Automated urine sediment leukocyte count by microscopy (number/high power field ) NONE NRG Bacteria detection in urine sediment by light microscopy NEGATIVE NRG Squamous epithelial cells detection in urine sediment by light microscopy 0-2 NRG Crystals detection in urine sediment by light microscopy NONE NRG Casts detection in urine sediment by light microscopy NONE NRG Mucus detection in urine sediment by light microscopy NEGATIVE NRG Complete urinalysis with reflex to culture NO NRG Serum or plasma lactate measurement (moles/volume) - 08/19/17 17:05 Serum or plasma lactate measurement (moles/volume) 2.40 mmol/L 0.50-2.00 Capillary blood glucose measurement by glucometer (mass/volume) - 08/19/17 21: 04 Capillary blood glucose measurement by glucometer (mass/volume) 320 mg/dL 70-110 Complete blood count (CBC) with automated white blood cell (WBC) differential - 08/20/17 05:18 Blood leukocytes automated count (number/volume) 10.3 10*3/uL 4.3-11.0 Blood erythrocytes automated count (number/volume) 5.42 10*6/uL 4.35-5.85 Venous blood hemoglobin measurement (mass/volume) 14.9 g/dL 13.3-17.7 Blood hematocrit (volume fraction) 46 % 40-54 Automated erythrocyte mean corpuscular volume 84 [foz_us] 80-99 Automated erythrocyte mean corpuscular hemoglobin (mass per erythrocyte) 28 pg 25-34 Automated erythrocyte mean corpuscular hemoglobin concentration measurement ( mass/volume) 33 g/dL 32-36 Automated erythrocyte distribution width ratio 13.3 % 10.0-14.5 Automated blood platelet count (count/volume) 190 10*3/uL 130-400 Automated blood platelet mean volume measurement 11.3 [foz_us] 7.4-10.4 Automated blood neutrophils/100 leukocytes 91 % 42-75 Automated blood lymphocytes/100 leukocytes 9 % 12-44 Blood monocytes/100 leukocytes 1 % 0-12 Automated blood eosinophils/100 leukocytes 0 % 0-10 Automated blood basophils/100 leukocytes 0 % 0-10 Blood neutrophils automated count (number/volume) 9.3 10*3 1.8-7.8 Blood lymphocytes automated count (number/volume) 0.9 10*3 1.0-4.0 Blood monocytes automated count (number/volume) 0.1 10*3 0.0-1.0 Automated eosinophil count 0.0 10*3/uL 0.0-0.3 Automated blood basophil count (count/volume) 0.0 10*3/uL 0.0-0.1 Blood lactic acid measurement (moles/volume) - 08/20/17 05:18 Blood lactic acid measurement (moles/volume) 1.90 mmol/L 0.50-2.00 Blood manual differential performed detection - 08/20/17 05:18 Blood monocytes/100 leukocytes 0 % NRG Manual blood segmented neutrophils/100 leukocytes 91 % NRG Blood band neutrophils/100 leukocytes 0 % NRG Manual blood lymphocytes/100 leukocytes 5 % NRG Manual eosinophils/100 leukocytes in nose 0 % NRG Manual blood basophils/100 leukocytes 0 % NRG Blood lymphocytes variant/100 leukocytes 4 % NRG Blood toxic granules detection by light microscopy 1+ NRG Comprehensive metabolic panel - 08/20/17 05:18 Serum or plasma sodium measurement (moles/volume) 136 mmol/L 135-145 Serum or plasma potassium measurement (moles/volume) 4.2 mmol/L 3.6-5.0 Serum or plasma chloride measurement (moles/volume) 103 mmol/L 98-107 Carbon dioxide 21 mmol/L 21-32 Serum or plasma anion gap determination (moles/volume) 12 mmol/L 5-14 Serum or plasma urea nitrogen measurement (mass/volume) 17 mg/dL 7-18 Serum or plasma creatinine measurement (mass/volume) 1.12 mg/dL 0.60-1.30 Serum or plasma urea nitrogen/creatinine mass ratio 15 NRG Serum or plasma creatinine measurement with calculation of estimated glomerular filtration rate > NRG Serum or plasma glucose measurement (mass/volume) 317 mg/dL 70-105 Serum or plasma calcium measurement (mass/volume) 9.2 mg/dL 8.5-10.1 Serum or plasma total bilirubin measurement (mass/volume) 0.5 mg/dL 0.1-1.0 Serum or plasma alkaline phosphatase measurement (enzymatic activity/volume) 97 U/L 40-136 Serum or plasma aspartate aminotransferase measurement (enzymatic activity/ volume) 16 U/L 5-34 Serum or plasma alanine aminotransferase measurement (enzymatic activity/volume ) 17 U/L 0-55 Serum or plasma protein measurement (mass/volume) 6.9 g/dL 6.4-8.2 Serum or plasma albumin measurement (mass/volume) 3.9 g/dL 3.2-4.5 Lipid 1996 panel - 08/20/17 05:18 Serum or plasma triglyceride measurement (mass/volume) 35 mg/dL <150 Serum or plasma cholesterol measurement (mass/volume) 100 mg/dL < 200 Serum or plasma cholesterol in HDL measurement (mass/volume) 47 mg/ dL 40-60 Cholesterol in LDL [mass/volume] in serum or plasma by direct assay 39 mg/dL 1-129 Serum or plasma cholesterol in VLDL measurement (mass/volume) 7 mg/ dL 5-40 Capillary blood glucose measurement by glucometer (mass/volume) - 08/20/17 10: 39 Capillary blood glucose measurement by glucometer (mass/volume) 351 mg/dL 70-110 Encounters ACCT No. Visit Date/Time Discharge Status Pt. Type Provider Facility Loc./Unit Complaint [id number] 08/19/2017 17:45:00 08/20/2017 13:30:00 DIS Inpatient JOB PAULINO DOQUELINE S [facility] 4TH SARCOIDOSIS, HYPERGLYCEMIA [id number] 03/14/2017 12:09:00 03/14/2017 23:59:59 CLS Outpatient OKSANA GONZÁLES, CARL Arnold [facility] RAD I25.10,I25.5 [id number] 05/14/2014 20:58:00 05/15/2014 06:45:00 DIS Outpatient JEFFERSON SCHMID ZACKARY S [facility] SLEEP NORI [id number] 04/29/2014 09:42:00 04/29/2014 23:59:59 CLS Outpatient ANGELANDGORDO SCHMID ZACKARY S [facility] RAD HX OF SARCOID , DYSPENEA [id number] 04/27/2014 20:32:00 04/28/2014 05:00:00 DIS Outpatient JEFFERSON SCHMID ZACKARY S [facility] SLEEP NORI,ABNORMAL LIMB MOVEMENT [id number] 08/27/2013 10:06:00 08/27/2013 23:59:59 CLS Outpatient JEFFERSON SCHMID ZACKARY S [facility] RAD JESUS FLANK PAIN, HEMATURIA [id number] 04/28/2010 10:48:00 Document Registration [id number] 07/15/2017 10:26:00 07/15/2017 15:33:00 DIS Outpatient Carl Scruggs [facility] SDS
[2017-11-07] MEDS ORDERED: NS IV 1000 ML 1,000 ML IV SCH ×2 (16:45→18:00)
--- NOTE | 2017-11-07 16:51 | ED General ---
General Chief Complaint: Oral/Throat Problems Stated Complaint: TROUBLE SWALLOWING, VOICE GOING, SWEATY Nursing Triage Note: pt presents to ed with complaints of hoarsness in voice, tiredness, and difficulty swallowing x 2 weeks. pt has hx of sarcoidosis and reports this feels similiar to when he started to get sick with an episode in the past. Nursing Sepsis Screen: No Definite Risk Source of Information: Patient Exam Limitations: No Limitations History of Present Illness Date Seen by Provider: Nov 07, 2017 Time Seen by Provider: 16:45 Initial Comments So but I went to ER with reports of "scratchy throat", fatigue, productive cough worse than usual. Patient does wear oxygen at home at 2 L per nasal cannula [id number]. History of COPD. Also has a history of sarcoidosis. Last time he had an episode like this he was given steroids and had significant improvement. This began with the flu about a month ago Timing/Duration: 1-2 Days Severity: Moderate Associated Systoms: Malaise Allergies and Home Medications Allergies Coded Allergies: No Known Drug Allergies (Verified , 03/17/08) Home Medications Aspirin 81 Mg Tab.chew, 81 MG PO 1700, (Reported) Digoxin 125 Mcg Tablet, 125 MCG PO MoTuWeThFrSa@1700, (Reported) Finasteride 5 Mg Tablet, 5 MG PO 1700, (Reported) Insulin Lispro 100 Unit/1 Ml Vial, Unknown Dose SQ 5XD, (Reported) USES VIA INSULIN PUMP Ipratropium/Albuterol Sulfate 3 Ml Ampul.neb, 3 ML INH RTQID Prescribed by: ZACKARY PAULINO on 08/20/17 1221 Morphine Sulfate 30 Mg Tablet.er, 60 MG PO 1700, (Reported) TAKES 2 (30 MG) TABLETS Oxycodone HCl/Acetaminophen 1 Each Tablet, 2 TAB PO Q6H PRN for PAIN-MODERATE, ( Reported) Pantoprazole Sodium 40 Mg Tablet.dr, 40 MG PO 1700, (Reported) Prednisone 20 Mg Tab, 20 MG PO UD TID for 3 days then BID for 3 days then daily for 3 days Prescribed by: ZACKARY PAULINO on 08/20/17 1221 Prednisone 10 Mg Tab, 60 MG PO DAILY Prescribed by: THALIA CABALLERO on 11/07/17 1827 Rivaroxaban 20 Mg Tablet, 20 MG PO 1700, (Reported) Tamsulosin HCl 0.4 Mg Cap.er.24h, 0.4 MG PO 1700, (Reported) Patient Home Medication List Home Medication List Reviewed: Yes Constitutional: see HPI, No chills, No fever, malaise, weakness EENTM: see HPI Respiratory: see HPI, cough Genitourinary: no symptoms reported Musculoskeletal: no symptoms reported Skin: no symptoms reported Psychiatric/Neurological: No Symptoms Reported Past Auflvcm-Leotoi-Wuhfgu Hx Patient Social History Alcohol Use: Denies Use Recreational Drug Use: No Smoking Status: Former Smoker Type Used: Cigarettes Former Smoker, Quit: May 20, 2001 Recent Foreign Travel: No Contact w/Someone Who Travel: No Recent Infectious Disease Expo: No Recent Hopitalizations: No Physical Abuse: No Sexual Abuse: No Mistreated: No Fear: No Immunizations Up To Date Date of Pneumonia Vaccine: Jun 23, 2014 Date of Influenza Vaccine: Jun 11, 2017 Seasonal Allergies Seasonal Allergies: No Surgeries History of Surgeries: Yes (BYPASS X2, BACK, SHOULDER , NERVE RELEASE ON RIGHT ELBOW) Surgeries: Appendectomy, Cardiac, CABG, Defibrillator, Pacemaker Respiratory History of Respiratory Disorde: Yes (sarcoidosis) Respiratory Disorders: Chronic Bronchitis, Sleep Apnea Currently Using CPAP: No Currently Using BIPAP: Yes Cardiovascular History of Cardiac Disorders: Yes Cardiac Disorders: Atrial Fibrillation, Coronary Artery Disease, Heart Attack, High Cholesterol, Hypertension, Irregular Heartbeat Neurological History of Neurological Disord: Yes Neurological Disorders: TIA Reproductive System Hx Reproductive Disorders: No Genitourinary History of Genitourinary Disor: Yes Genitourinary Disorders: Prostate Problems Gastrointestinal History of Gastrointestinal Di: No Musculoskeletal History of Musculoskeletal Dis: Yes Musculoskeletal Disorders: Chronic Back Pain Endocrine History of Endocrine Disorders: Yes Endocrine Disorders: Diabetes, Insulin dep HEENT History of HEENT Disorders: No Cancer History of Cancer: No Psychosocial History of Psychiatric Problem: Yes Behavioral Health Disorders: Depression Suicide Risk Score: 0 Integumentary History of Skin or Integumenta: No Blood Transfusions History of Blood Disorders: No Family Medical History Significant Family History: No Pertinent Family Hx Family Medial History: Arthritis 19 FATHER 19 MOTHER G8 SISTER G8 SISTER G8 SISTER Cataracts G8 SISTER Diabetes mellitus G8 SISTER G8 SISTER Physical Exam Vital Signs Vital Signs - First Documented 11/07/17 16:20 Temp 97.0 Pulse 83 Resp 20 B/P (MAP) 113/67 (82) Pulse Ox 93 Capillary Refill : Less Than 3 Seconds General Appearance: No Apparent Distress, WD/WN Eyes: Bilateral Eye Normal Inspection, Bilateral Eye PERRL, Bilateral Eye EOMI HEENT: PERRL/EOMI Neck: Full Range of Motion, Normal Inspection Respiratory: Normal Breath Sounds, No Accessory Muscle Use, No Respiratory Distress Cardiovascular: Regular Rate, Rhythm, Normal Peripheral Pulses Gastrointestinal: Normal Bowel Sounds, Non Tender, Soft Extremity: Normal Capillary Refill, Normal Inspection Neurologic/Psychiatric: Alert, Oriented x3, No Motor/Sensory Deficits Skin: Normal Color, Warm/Dry Progress/Results/Core Measures Suspected Sepsis Recent Fever Within 48 Hours: No Infection Criteria Present: None New/Unexplained Altered Menta: No Sepsis Screen: No Definite Risk Sepsis Diagnosis: SIRS Temperature:97.0 Pulse: 83 Respiratory Rate: 20 Laboratory Tests 11/07/17 17:27: White Blood Count 8.2 Blood Pressure 113 /67 Mean: 82 Laboratory Tests 11/07/17 17:27: Creatinine 1.77H, Platelet Count 229, Total Bilirubin 0.6 Results/Orders Lab Results Laboratory Tests Test 11/07/17 17:27 Range/Units White Blood Count 8.2 4.3-11.0 10^3/uL Red Blood Count 5.20 4.35-5.85 10^6/uL Hemoglobin 14.3 13.3-17.7 G/DL Hematocrit 43 40-54 % Mean Corpuscular Volume 83 80-99 FL Mean Corpuscular Hemoglobin 28 25-34 PG Mean Corpuscular Hemoglobin Concent 33 32-36 G/DL Red Cell Distribution Width 13.8 10.0-14.5 % Platelet Count 229 130-400 10^3/uL Mean Platelet Volume 10.8 H 7.4-10.4 FL Neutrophils (%) (Auto) 78 H 42-75 % Lymphocytes (%) (Auto) 14 12-44 % Monocytes (%) (Auto) 6 0-12 % Eosinophils (%) (Auto) 1 0-10 % Basophils (%) (Auto) 0 0-10 % Neutrophils # (Auto) 6.4 1.8-7.8 X 10^3 Lymphocytes # (Auto) 1.2 1.0-4.0 X 10^3 Monocytes # (Auto) 0.5 0.0-1.0 X 10^3 Eosinophils # (Auto) 0.1 0.0-0.3 10^3/uL Basophils # (Auto) 0.0 0.0-0.1 10^3/uL Erythrocyte Sedimentation Rate 4 0-30 MM/HR Sodium Level 132 L 135-145 MMOL/L Potassium Level 4.3 3.6-5.0 MMOL/L Chloride Level 96 L 98-107 MMOL/L Carbon Dioxide Level 22 21-32 MMOL/L Anion Gap 14 5-14 MMOL/L Blood Urea Nitrogen 26 H 7-18 MG/DL Creatinine 1.77 H 0.60-1.30 MG/DL Estimat Glomerular Filtration Rate 38 BUN/Creatinine Ratio 15 Glucose Level 290 H 70-105 MG/DL Calcium Level 10.0 8.5-10.1 MG/DL Total Bilirubin 0.6 0.1-1.0 MG/DL Aspartate Amino Transf (AST/SGOT) 8 5-34 U/L Alanine Aminotransferase (ALT/SGPT) 14 0-55 U/L Alkaline Phosphatase 66 40-136 U/L C-Reactive Protein High Sensitivity 0.39 0.00-0.50 MG/DL Total Protein 7.5 6.4-8.2 GM/DL Albumin 4.1 3.2-4.5 GM/DL My Orders Orders - THALIA CABALLERO APRN Hs C Reactive Protein (11/07/17 16:37) Erythrocyte Sedimentation Rate (11/07/17 16:37) Saline Lock/Iv-Start (11/07/17 16:37) Ns Iv 1000 Ml (Sodium Chloride 0.9%) (11/07/17 16:45) Ns Iv 1000 Ml (Sodium Chloride 0.9%) (11/07/17 18:00) Methylprednisolone Sod Succ (Solu-Medrol (11/07/17 18:15) Vital Signs/I&O Vital Sign - Last 12Hours 11/07/17 16:20 Temp 97.0 Pulse 83 Resp 20 B/P (MAP) 113/67 (82) Pulse Ox 93 Capillary Refill : Less Than 3 Seconds Blood Pressure Mean: 82 Departure Communication (Admissions) Progress Notes 1807- I spoke with Dr. Arceo who is on-call for Dr. PAULINO. Recommends Solu- Medrol 25 mg IV here then discharged home with prednisone 60 mg daily For 5 days. Bolus of fluids here then discharge home. Impression Impression: Primary Impression: Acute renal failure Additional Impression: Sarcoidosis Disposition: HOME, SELF-CARE Condition: Stable Departure-Patient Inst. Decision time for Depature: 18:24 Referrals: ZACKARY PAULINO DO (PCP/Family) Primary Care Physician Add. Discharge Instructions: 1. STeroids as directed 2. REtutn ro ER for any concerns All discharge instructions reviewed with patient and/or family. Voiced understanding. Scripts Prednisone (Prednisone) 10 Mg Tab 60 MG PO DAILY, #39 TAB 60 mg by mouth daily 4 days then reduced by one tablet until gone Prov: THALIA CABALLERO APRN 11/07/17 Copy Copies To 1: ZACKARY PAULINO PETER J APRN Nov 07, 2017 16:51
--- NOTE | 2017-11-07 16:53 | Diagnostic Imaging Report ---
INDICATION: Difficulty swallowing with shortness of breath. COMPARISON STUDY: Chest from 08/19/17. FINDINGS: Two views of the chest demonstrates mild fibrotic changes in the left lung base to be stable. Lungs are otherwise clear. Sternotomy changes are present with a cardiac pacer. Heart size and vascularity are normal. No pleural effusions are present. IMPRESSION: There are no acute findings. Dictated by: Dictated on workstation # [id number]
[2017-11-07 17:36] LABS: BASOPHILS % (AUTO) 0 % (0-10); EOSINOPHILS # (AUTO) 0.1 10^3/uL (0.0-0.3); EOSINOPHILS % (AUTO) 1 % (0-10); HEMATOCRIT 43 % (40-54); HEMOGLOBIN 14.3 G/DL (13.3-17.7); LYMPHOCYTES # (AUTO) 1.2 X 10^3 (1.0-4.0); LYMPHOCYTES % (AUTO) 14 % (12-44); MEAN CORPUSCULAR HEMOGLOBIN 28 PG (25-34); MEAN CORPUSCULAR HGB CONC 33 G/DL (32-36); MEAN CORPUSCULAR VOLUME 83 FL (80-99); MEAN PLATELET VOLUME 10.8 FL (7.4-10.4); MONOCYTES # (AUTO) 0.5 X 10^3 (0.0-1.0); MONOCYTES % (AUTO) 6 % (0-12); NEUTROPHILS # (AUTO) 6.4 X 10^3 (1.8-7.8); NEUTROPHILS % (AUTO) 78 % (42-75); PLATELET COUNT 229 10^3/uL (130-400); RED CELL DISTRIBUTION WIDTH 13.8 % (10.0-14.5); WHITE BLOOD COUNT 8.2 10^3/uL (4.3-11.0)
[2017-11-07 17:53] LABS: ERYTHROCYTE SEDIMENTATION RATE 4 MM/HR (0-30)
[2017-11-07 17:55] LABS: ALBUMIN 4.1 GM/DL (3.2-4.5); BILIRUBIN,TOTAL 0.6 MG/DL (0.1-1.0); CREATININE SERUM 1.77 MG/DL (0.60-1.30); POTASSIUM 4.3 MMOL/L (3.6-5.0); TOTAL PROTEIN 7.5 GM/DL (6.4-8.2)
[2017-11-07] MEDS ORDERED: methylPREDNISolone 125 MG (Solu-MEDROL) VIAL IVP ONE (18:15)
[2017-11-07] MEDS ORDERED: PRD10T PO ×2 (18:27→18:35)
[2017-11-07 19:27] VITALS: BP 134/62
== END 2017-11-07 19:27 | disposition home or self-care (01) ==
LOC: EDUNIT# 16:00 → ER 16:01
DX: N17.9 Acute kidney failure, unspecified (principal); D86.9 Sarcoidosis, unspecified; G47.30 Sleep apnea, unspecified; I48.91 Unspecified atrial fibrillation; E78.00 Pure hypercholesterolemia, unspecified; I25.10 Atherosclerotic heart disease of native coronary artery without angina pectoris; I25.2 Old myocardial infarction; I10 Essential (primary) hypertension; E11.9 Type 2 diabetes mellitus without complications; F32.9 Major depressive disorder, single episode, unspecified; J44.9 Chronic obstructive pulmonary disease, unspecified; Z79.82 Long term (current) use of aspirin; Z79.4 Long term (current) use of insulin; Z79.52 Long term (current) use of systemic steroids; Z79.01 Long term (current) use of anticoagulants; Z87.891 Personal history of nicotine dependence; Z86.73 Personal history of transient ischemic attack (TIA), and cerebral infarction without residual deficits; Z95.1 Presence of aortocoronary bypass graft; Z95.810 Presence of automatic (implantable) cardiac defibrillator; Z90.49 Acquired absence of other specified parts of digestive tract
CPT/HCPCS: 36415; 71046; 80053; 85025; 85652; 86141; 96361; 96374

== ENCOUNTER → 2017-11-20 | Outpatient (CLI) | payer MEDICARE ==
[~2017-11-20] MED LIST changes: +PRD10T PO
== END ==
LOC: LAB 15:03
PROVIDERS: ATTEND Nurse Practitioner Family
DX: D86.9 Sarcoidosis, unspecified (principal); J44.9 Chronic obstructive pulmonary disease, unspecified; R06.00 Dyspnea, unspecified
CPT/HCPCS: 36415; 82164

== ENCOUNTER 2017-11-26 18:31 | Inpatient (IN) | payer MEDICARE ==
[2017-11-26] VITALS (12 sets, daily range): BP systolic 124–167; BP diastolic 66–96
[~2017-11-26] VITALS: Ht 180.3 cm; Wt 97.6 kg
--- OUTSIDE RECORDS SUMMARY | 2017-11-26 18:37 | XMS REPORT | Continuity of Care Document ---
Author Author [facility] Organization [facility] Address Unknown Phone Unavailable Allergies Active Description Code Type Severity Reaction Onset Reported/Identified Relationship to Patient Clinical Status Yes No Known Drug Allergies [id number] Drug Allergy Unknown N/A 03/17/2008 Yes No Known Drug Intolerances No Known Drug Intolerances Drug Allergy Unknown . 05/21/2012 Medications There is no data. Problems Date Dx Coded Attending Type Code Diagnosis Diagnosed By 04/28/2014 DOLORES PETTY DO Ot 327.23 OBSTRUCTIVE SLEEP APNEA (ADULT) (PEDIATR 05/15/2014 DOLORES PETTY DO Ot 327.23 OBSTRUCTIVE SLEEP APNEA (ADULT) (PEDIATR 10/06/2014 Ot 241.0 03/14/2017 DOLORES PETTY DO Ot 574.20 CHOLELITHIASIS NOS 03/14/2017 DOLORES PETTY DO S Ot 599.70 HEMATURIA, UNSPECIFIED 03/14/2017 DOLORES PETTY DO S Ot 600.00 HYPERTROPHY (BENIGN) OF PROSTATE W/O URI 03/14/2017 DOLORES PETTY DO S Ot 789.09 ABDOMINAL PAIN, OTHER SPECIFIED SITE 03/14/2017 DOLORES PETTY DO Ot 135 SARCOIDOSIS 03/14/2017 DOLORES PETTY DO S Ot 515 POSTINFLAM PULM FIBROSIS 03/14/2017 DOLORES PETTY DO S Ot 518.0 PULMONARY COLLAPSE 03/14/2017 DOLORES PETTY DO S Ot 786.09 RESPIRATORY ABNORM NEC 03/14/2017 DOLORES PETTY DO S Ot 793.19 OTHER NONSPECIFIC ABNORMAL FINDING OF [place] 04/05/2017 OKSANA GONZÁLES, MARTELL Arnold Ot I25.10 ATHSCL HEART DISEASE OF [place] CORONARY 04/05/2017 MARTELL GANDHI MD Ot I25.5 ISCHEMIC CARDIOMYOPATHY 04/12/2017 ADAIR-MIRI MD, MARTELL E Ot I25.10 ATHSCL HEART DISEASE OF [place] CORONARY 04/12/2017 OKSANA GONZÁLES, MARETLL Arnold Ot I25.5 ISCHEMIC CARDIOMYOPATHY 08/20/2017 JEFFERSON SCHMID DOLORES S Ot D86.9 SARCOIDOSIS, UNSPECIFIED 08/20/2017 JEFFERSON SCHMID, DOLORES S Ot E11.65 TYPE 2 DIABETES MELLITUS WITH HYPERGLYCE 08/20/2017 JEFFERSON SCHMID DOLORES S Ot E78.00 PURE HYPERCHOLESTEROLEMIA, UNSPECIFIED 08/20/2017 JEFFERSON SCHMID, DOLORES S Ot F32.9 MAJOR DEPRESSIVE DISORDER, SINGLE EPISOD 08/20/2017 JEFFERSON SCHMID, DOLORES S Ot I10 ESSENTIAL (PRIMARY) HYPERTENSION 08/20/2017 JEFFERSON SCHMID DOLORES S Ot I25.10 ATHSCL HEART DISEASE OF [place] CORONARY 08/20/2017 JEFFERSON SCHMID DOLORES S Ot I25.2 OLD MYOCARDIAL INFARCTION 08/20/2017 JEFFERSON SCHMID DOLORES S Ot I48.91 UNSPECIFIED ATRIAL FIBRILLATION 08/20/2017 JEFFERSON SCHMID DOLORES S Ot R07.89 OTHER CHEST PAIN 08/20/2017 JEFFERSON SCHMID DOLORES S Ot R09.02 HYPOXEMIA 08/20/2017 JEFFERSON SCHMID DOLORES S Ot Z79.4 METER REPAIRER HELPER (CURRENT) USE OF INSULIN 08/20/2017 JEFFERSON SCHMID DOLORES S Ot Z86.73 PRSNL HX OF TIA (TIA), AND CEREB INFRC W 08/20/2017 JEFFERSON SCHMID DOLORES S Ot Z87.891 PERSONAL HISTORY OF NICOTINE DEPENDENCE 08/20/2017 JEFFERSON SCHMID DOLORES S Ot Z91.11 PATIENT'S NONCOMPLIANCE WITH DIETARY REG 08/20/2017 JEFFERSON SCHMID DOLORES S Ot Z95.1 PRESENCE OF AORTOCORONARY BYPASS GRAFT 08/20/2017 ANGELAILEANA SCHMID DOLORES S Ot Z95.810 PRESENCE OF AUTOMATIC (IMPLANTABLE) CARD 11/11/2017 THALIA CABALLERO APRN Ot D86.9 SARCOIDOSIS, UNSPECIFIED 11/11/2017 THALIA CABALLERO APRN Ot E11.9 TYPE 2 DIABETES MELLITUS WITHOUT COMPLIC 11/11/2017 THALIA CABALLERO APRN Ot E78.00 PURE HYPERCHOLESTEROLEMIA, UNSPECIFIED 11/11/2017 THALIA CABALLERO APRN Ot F32.9 MAJOR DEPRESSIVE DISORDER, SINGLE EPISOD 11/11/2017 THALIA CABALLERO APRN Ot G47.30 SLEEP APNEA, UNSPECIFIED 11/11/2017 THALIA CABALLERO APRN Ot I10 ESSENTIAL (PRIMARY) HYPERTENSION 11/11/2017 THALIA CABALLERO APRN Ot I25.10 ATHSCL HEART DISEASE OF [place] CORONARY 11/11/2017 THALIA CABALLERO APRN Ot I25.2 OLD MYOCARDIAL INFARCTION 11/11/2017 THALIA CABALLERO APRN Ot I48.91 UNSPECIFIED ATRIAL FIBRILLATION 11/11/2017 THALIA CABALLERO APRN Ot J44.9 CHRONIC OBSTRUCTIVE PULMONARY DISEASE, U 11/11/2017 THALIA CABALLERO APRN Ot N17.9 ACUTE KIDNEY FAILURE, UNSPECIFIED 11/11/2017 THALIA CABALLERO APRN Ot R53.83 OTHER FATIGUE 11/11/2017 THALIA CABALLERO APRN Ot Z79.01 METER REPAIRER HELPER (CURRENT) USE OF ANTICOAGULANT 11/11/2017 THALIA CABALLERO APRN Ot Z79.4 METER REPAIRER HELPER (CURRENT) USE OF INSULIN 11/11/2017 THALIA CABALLERO APRN Ot Z79.52 METER REPAIRER HELPER (CURRENT) USE OF SYSTEMIC STER 11/11/2017 THALIA CABALLERO APRN Ot Z79.82 RESIDENTIAL (CURRENT) USE OF ASPIRIN 11/11/2017 THALIA CABALLERO APRN Ot Z86.73 PRSNL HX OF TIA (TIA), AND CEREB INFRC W 11/11/2017 THALIA CABALLERO APRN Ot Z87.891 PERSONAL HISTORY OF NICOTINE DEPENDENCE 11/11/2017 THALIA CABALLERO APRN Ot Z90.49 ACQUIRED ABSENCE OF OTHER SPECIFIED PART 11/11/2017 THALIA CABALLERO APRN Ot Z95.1 PRESENCE OF AORTOCORONARY BYPASS GRAFT 11/11/2017 THALIA CABALLERO APRN Ot Z95.810 PRESENCE OF AUTOMATIC (IMPLANTABLE) CARD 11/21/2017 KAYCE MITTAL APRN Ot D86.9 SARCOIDOSIS, UNSPECIFIED 11/21/2017 KAYCE MITTAL APRN Ot J44.9 CHRONIC OBSTRUCTIVE PULMONARY DISEASE, U 11/21/2017 KAYCE MITTAL APRN Ot R06.00 DYSPNEA, UNSPECIFIED Procedures Code Description [place] [address] MYOCARDIAL PERFUSION MULTI STUDIES EDY DAY 04/03/2016 Results Test Result Range BMP - 07/15/17 11:15 GFR 58 >=60 GFR NonAfrican [place] Citizen 48 >=60 SODIUM:SCNC:PT:SER/PLAS:QN: 135 mmol/L 136-145 POTASSIUM:SCNC:PT:SER/PLAS:QN: [...] 08/20/17 05:18 Blood monocytes/100 leukocytes 0 % NR Manual blood segmented neutrophils/100 leukocytes 91 % NRG Blood band neutrophils/100 leukocytes 0 % NRG Manual blood lymphocytes/100 leukocytes 5 % NRG Manual eosinophils/100 leukocytes in nose 0 % NRG Manual blood basophils/100 leukocytes 0 % NRG Blood lymphocytes variant/100 leukocytes 4 % NRG Blood toxic granules detection by light microscopy 1+ [facility] Comprehensive metabolic panel - 08/20/17 05:18 Serum [...] measurement by glucometer (mass/volume) 351 mg/dL 70-110 Complete blood count (CBC) with automated white blood cell (WBC) differential - 11/07/17 17:27 Blood leukocytes automated count (number/volume) 8.2 10*3/uL 4.3-11.0 Blood erythrocytes automated count (number/volume) 5.20 10*6/uL 4.35-5.85 Venous blood hemoglobin measurement (mass/volume) 14.3 g/dL 13.3-17.7 Blood hematocrit (volume fraction) 43 % 40-54 Automated erythrocyte mean corpuscular volume 83 [foz_us] 80-99 Automated erythrocyte mean corpuscular hemoglobin (mass per erythrocyte) 28 pg 25-34 Automated erythrocyte mean corpuscular hemoglobin concentration measurement ( mass/volume) 33 g/dL 32-36 Automated erythrocyte distribution width ratio 13.8 % 10.0-14.5 Automated blood platelet count (count/volume) 229 10*3/uL 130-400 Automated blood platelet mean volume measurement 10.8 [foz_us] 7.4-10.4 Automated blood neutrophils/100 leukocytes 78 % 42-75 Automated blood lymphocytes/100 leukocytes 14 % 12-44 Blood monocytes/100 leukocytes 6 % 0-12 Automated blood eosinophils/100 leukocytes 1 % 0-10 Automated blood basophils/100 leukocytes 0 % 0-10 Blood neutrophils automated count (number/volume) 6.4 10*3 1.8-7.8 Blood lymphocytes automated count (number/volume) 1.2 10*3 1.0-4.0 Blood monocytes automated count (number/volume) 0.5 10*3 0.0-1.0 Automated eosinophil count 0.1 10*3/uL 0.0-0.3 Automated blood basophil count (count/volume) 0.0 10*3/uL 0.0-0.1 Erythrocyte sedimentation rate by westergren method - 11/07/17 17:27 Erythrocyte sedimentation rate by westergren method 4 mm 0-30 Comprehensive metabolic panel - 11/07/17 17:27 Serum or plasma sodium measurement (moles/volume) 132 mmol/L 135-145 Serum or plasma potassium measurement (moles/volume) 4.3 mmol/L 3.6-5.0 Serum or plasma chloride measurement (moles/volume) 96 mmol/L 98-107 Carbon dioxide 22 mmol/L 21-32 Serum or plasma anion gap determination (moles/volume) 14 mmol/L 5-14 Serum or plasma urea nitrogen measurement (mass/volume) 26 mg/dL 7-18 Serum or plasma creatinine measurement (mass/volume) 1.77 mg/dL 0.60-1.30 Serum or plasma urea nitrogen/creatinine mass ratio 15 NRG Serum or plasma creatinine measurement with calculation of estimated glomerular filtration rate 38 NRG Serum or plasma glucose measurement (mass/volume) 290 mg/dL 70-105 Serum or plasma calcium measurement (mass/volume) 10.0 mg/dL 8.5-10.1 Serum or plasma total bilirubin measurement (mass/volume) 0.6 mg/dL 0.1-1.0 Serum or plasma alkaline phosphatase measurement (enzymatic activity/volume) 66 U/L 40-136 Serum or plasma aspartate aminotransferase measurement (enzymatic activity/ volume) 8 U/L 5-34 Serum or plasma alanine aminotransferase measurement (enzymatic activity/volume ) 14 U/L 0-55 Serum or plasma protein measurement (mass/volume) 7.5 g/dL 6.4-8.2 Serum or plasma albumin measurement (mass/volume) 4.1 g/dL 3.2-4.5 Serum or plasma C reactive protein measurement (mass/volume) - 11/07/17 17:27 Serum or plasma C reactive protein measurement (mass/volume) 0.39 mg /dL 0.00-0.50 Serum angiotensin converting enzyme (SARAH BETH) measurement - 11/20/17 15:25 Serum angiotensin converting enzyme (SARAH BETH) measurement 56 U/L 9-67 Encounters ACCT No. Visit Date/Time Discharge Status Pt. Type Provider Facility Loc./Unit Complaint [id number] 11/20/2017 15:03:00 11/20/2017 23:59:59 CLS Outpatient KAYCE MITTAL PLATEMAN [facility] LAB J44.9,R06.00,D86.9 [id number] 11/19/2017 16:30:00 11/19/2017 23:59:59 CLS Preadmit KAYCE MITTAL PLATEMAN [facility] RAD J44.9 COPD [id number] 11/19/2017 16:29:00 11/19/2017 23:59:59 CLS Preadmit KAYCE MITTAL PLATEMAN [facility] RT J44.9 COPD [id number] 11/07/2017 16:01:00 11/07/2017 19:27:00 DIS Outpatient THALIA CABALLERO PLATEMAN [facility] ER TROUBLE SWALLOWING, VOICE GOING, SWEATY [id number] 08/19/2017 17:45:00 08/20/2017 13:30:00 DIS Inpatient DOLORES PETTY DO [facility] 4TH SARCOIDOSIS, HYPERGLYCEMIA [id number] 03/14/2017 12:09:00 03/14/2017 23:59:59 CLS Outpatient OKSANA GONZÁLES, MARTELL Arnold [facility] RAD I25.10,I25.5 [id number] 05/14/2014 20:58:00 05/15/2014 06:45:00 DIS Outpatient DOLORES PETTY DO [facility] SLEEP NORI [id number] 04/29/2014 09:42:00 04/29/2014 23:59:59 CLS Outpatient DOLORES PETTY DO [facility] RAD HX OF SARCOID , DYSPENEA [id number] 04/27/2014 20:32:00 04/28/2014 05:00:00 DIS Outpatient DOLORES PETTY DO [facility] SLEEP NORI,ABNORMAL LIMB MOVEMENT [id number] 08/27/2013 10:06:00 08/27/2013 23:59:59 CLS Outpatient DOLORES PETTY DO [facility] RAD JESUS FLANK PAIN, HEMATURIA [id number] 04/28/2010 10:48:00 Document Registration [id number] 07/15/2017 10:26:00 07/15/2017 15:33:00 [id number] 04/13/2016 00:00:00 DIS Document Registration [id number] 04/10/2016 10:38:00 04/10/2016 18:15:00 DIS Outpatient Angela GONZÁLES, [facility] & GORDO DENTON 08/01/18 11/13/2017 15:33:28 11/13/2017 23:59:59 CLS Outpatient Dolores Petty
[2017-11-26] MEDS ORDERED: NS IV 1000 ML 1,000 ML IV ONE ×2 (18:53→19:04)
[2017-11-26] MEDS ORDERED: RT-ALBUTEROL/IPRATROPIUM 3 ML (DUONEB) VIAL INH ONE (19:00)
--- NOTE | 2017-11-26 19:01 | ED Respiratory ---
General Stated Complaint: CANT SWALLOW, TROUBLE BREATHING Source: patient, old records, spouse Exam Limitations: no limitations History of Present Illness Date Seen by Provider: Nov 26, 2017 Time Seen by Provider: 18:44 Initial Comments Patient and his presented to the ER by private conveyance with a chief complaint for the last 3 weeks she has felt tired, short of breath. He has had no fevers, chills, cough or chest pain. He says he was having some nausea and difficulty swallowing foods feeling like they're getting stuck in the top of the esophagus so he was placed on omeprazole which made him throw up the pills so he was switched over to Protonix by Dr. Petty. He was seen a few weeks ago for a COPD exacerbation and put on steroids. He was given an extended taper by his primary care physician outpatient is off steroids. He feels like he is still having a hard time getting any food down and has not eaten more than 2 bites since yesterday evening which she immediately had to spit out because he cannot swallow it. He has a scheduled endoscopy appointment in [address] Pabon. Says he's had his throat dilated at least twice in the past several years. He has a history of heart disease with 14 stents and open heart bypass as well as implanted pacemaker defibrillator and follows with Dr. Goldstein in [place], [place]. Patient states he ran out of his insulin in the last 1-2 days but because he's had no energy and been just laying in bed he has not got out of bed to go get refills. He has not been using any insulin and does not check his blood sugar. Patient does have a history of COPD as well as sarcoidosis. Allergies and Home Medications Allergies Coded Allergies: No Known Drug Allergies (Verified , 03/17/08) Home Medications Aspirin 81 Mg Tab.chew, 81 MG PO 1700, (Reported) Digoxin 125 Mcg Tablet, 125 MCG PO [id number]@1700, (Reported) Finasteride 5 Mg Tablet, 5 MG PO 1700, (Reported) Insulin Lispro 100 Unit/1 Ml Vial, Unknown Dose SQ 5XD, (Reported) USES VIA INSULIN PUMP Ipratropium/Albuterol Sulfate 3 Ml Ampul.neb, 3 ML INH RTQID Prescribed by: ZACKARY PETTY on 12/12/17 1221 Morphine Sulfate 30 Mg Tablet.er, 60 MG PO 1700, (Reported) TAKES 2 (30 MG) TABLETS Oxycodone HCl/Acetaminophen 1 Each Tablet, 2 TAB PO Q6H PRN for PAIN-MODERATE, ( Reported) Pantoprazole Sodium 40 Mg Tablet.dr, 40 MG PO 1700, (Reported) Prednisone 20 Mg Tab, 20 MG PO UD TID for 3 days then BID for 3 days then daily for 3 days Prescribed by: ZACKARY PETTY on 08/20/17 1221 Prednisone 10 Mg Tab, 60 MG PO DAILY 60 mg by mouth daily 4 days then reduced by one tablet until gone Prescribed by: THALIA CABALLERO on 11/07/17 1835 Rivaroxaban 20 Mg Tablet, 20 MG PO 1700, (Reported) Tamsulosin HCl 0.4 Mg Cap.er.24h, 0.4 MG PO 1700, (Reported) Patient Home Medication List Home Medication List Reviewed: Yes Constitutional: No chills, No diaphoresis, No fever, malaise, weakness EENTM: No ear discharge, No ear pain, No eye pain, No tearing Respiratory: No cough, No phlegm, short of breath, No wheezing Cardiovascular: No chest pain, Hx of Intervention, No palpitations, No syncope , vascular heart diseas Gastrointestinal: No abdominal pain, No constipation, No diarrhea, dysphagia, No nausea, No vomiting Genitourinary: No discharge, No dysuria, No frequency Musculoskeletal: No back pain, No joint pain Skin: No pruritus, No rash Psychiatric/Neurological: Denies Headache, Denies Numbness, Denies Paresthesia Past Dtgladb-Itabup-Egtobt Hx Patient Social History Alcohol Use: Denies Use Recreational Drug Use: No Smoking Status: Former Smoker Type Used: Cigarettes Former Smoker, Quit: May 20, 2001 Recent Foreign Travel: No Contact w/Someone Who Travel: No Recent Hopitalizations: No Immunizations Up To Date Date of Pneumonia Vaccine: Jun 23, 2014 Date of Influenza Vaccine: Jun 11, 2017 Seasonal Allergies Seasonal Allergies: No Surgeries History of Surgeries: Yes (BYPASS X2, BACK, SHOULDER , NERVE RELEASE ON RIGHT ELBOW) Surgeries: Appendectomy, Cardiac, CABG, Defibrillator, Pacemaker Respiratory History of Respiratory Disorde: Yes (sarcoidosis) Respiratory Disorders: Chronic Bronchitis, Sleep Apnea Currently Using CPAP: No Currently Using BIPAP: Yes Cardiovascular History of Cardiac Disorders: Yes Cardiac Disorders: Atrial Fibrillation, Coronary Artery Disease, Heart Attack, High Cholesterol, Hypertension, Irregular Heartbeat Neurological History of Neurological Disord: Yes Neurological Disorders: TIA Reproductive System Hx Reproductive Disorders: No Genitourinary History of Genitourinary Disor: Yes Genitourinary Disorders: Prostate Problems Gastrointestinal History of Gastrointestinal Di: No Musculoskeletal History of Musculoskeletal Dis: Yes Musculoskeletal Disorders: Chronic Back Pain Endocrine History of Endocrine Disorders: Yes Endocrine Disorders: Diabetes, Insulin dep HEENT History of HEENT Disorders: No Cancer History of Cancer: No Psychosocial History of Psychiatric Problem: Yes Behavioral Health Disorders: Depression Integumentary History of Skin or Integumenta: No Blood Transfusions History of Blood Disorders: No Family Medical History Significant Family History: No Pertinent Family Hx Family Medial History: Arthritis 19 FATHER 19 MOTHER G8 SISTER G8 SISTER G8 SISTER Cataracts G8 SISTER Diabetes mellitus G8 SISTER G8 SISTER Physical Exam Vital Signs Vital Signs - First Documented 11/26/17 11/26/17 18:35 20:15 Temp 97.9 Pulse 131 Resp 14 B/P (MAP) 134/85 (101) Pulse Ox 96 O2 Delivery Room Air Capillary Refill : General Appearance: WD/WN, mild distress Eyes: Bilateral Eye Normal Inspection, Bilateral Eye PERRL, Bilateral Eye EOMI HEENT: PERRL/EOMI, normal ENT inspection, TMs normal, pharynx normal ( oropharynx is dry) Neck: non-tender, supple, normal inspection (no JVD) Respiratory: chest non-tender, lungs clear, normal breath sounds, no respiratory distress, no accessory muscle use Cardiovascular: normal peripheral pulses, no edema, no JVD, no murmur, No JVD Gastrointestinal: normal bowel sounds, non tender, soft Neurologic/Psychiatric: alert, oriented x 3 Skin: normal color, warm/dry Lymphatic: no adenopathy Progress/Results/Core Measures Suspected Sepsis SIRS Temperature: Pulse: Respiratory Rate: Laboratory Tests 11/26/17 19:25: White Blood Count 9.5 Blood Pressure / Mean: Laboratory Tests 11/26/17 19:25: Creatinine 2.44H, Platelet Count 223, Total Bilirubin 0.4 Results/Orders Lab Results Laboratory Tests Test 11/26/17 19:00 11/26/17 19:10 11/26/17 19:25 11/26/17 20:20 Range/Units Glucometer 394 H 70-110 MG/DL Urine Color YELLOW Urine Clarity CLEAR Urine pH 5 5-9 Urine Specific [place] 1.025 H 1.016-1.022 Urine Protein 2+ H NEGATIVE Urine Glucose (UA) 4+ H NEGATIVE Urine Ketones 4+ H NEGATIVE Urine Nitrite NEGATIVE NEGATIVE Urine Bilirubin NEGATIVE NEGATIVE Urine Urobilinogen NORMAL NORMAL MG/DL Urine Leukocyte Esterase NEGATIVE NEGATIVE Urine RBC (Auto) NEGATIVE NEGATIVE Urine RBC NONE /HPF Urine WBC 0-2 /HPF Urine Crystals NONE /LPF Urine Bacteria NONE /HPF Urine Casts PRESENT /LPF Urine Hyaline Casts 5-10 H /LPF Urine Mucus NEGATIVE /LPF Urine Culture Indicated NO White Blood Count 9.5 4.3-11.0 10^3/uL Red Blood Count 5.96 H 4.35-5.85 10^6/uL Hemoglobin 16.4 13.3-17.7 G/DL Hematocrit 50 40-54 % Mean Corpuscular Volume 84 80-99 FL Mean Corpuscular Hemoglobin 28 25-34 PG Mean Corpuscular Hemoglobin Concent 33 32-36 G/DL Red Cell Distribution Width 14.6 H 10.0-14.5 % Platelet Count 223 130-400 10^3/uL Mean Platelet Volume 11.3 H 7.4-10.4 FL Neutrophils (%) (Auto) 76 H 42-75 % Lymphocytes (%) (Auto) 18 12-44 % Monocytes (%) (Auto) 5 0-12 % Eosinophils (%) (Auto) 1 0-10 % Basophils (%) (Auto) 0 0-10 % Neutrophils # (Auto) 7.2 1.8-7.8 X 10^3 Lymphocytes # (Auto) 1.8 1.0-4.0 X 10^3 Monocytes # (Auto) 0.4 0.0-1.0 X 10^3 Eosinophils # (Auto) 0.1 0.0-0.3 10^3/uL Basophils # (Auto) 0.0 0.0-0.1 10^3/uL Sodium Level 132 L 135-145 MMOL/L Potassium Level 4.7 3.6-5.0 MMOL/L Chloride Level 96 L 98-107 MMOL/L Carbon Dioxide Level 8 *L 21-32 MMOL/L Anion Gap 28 H 5-14 MMOL/L Blood Urea Nitrogen 30 H 7-18 MG/DL Creatinine 2.44 H 0.60-1.30 MG/DL Estimat Glomerular Filtration Rate 26 BUN/Creatinine Ratio 12 Glucose Level 468 *H 70-105 MG/DL Calcium Level 10.8 H 8.5-10.1 MG/DL Magnesium Level 1.9 1.8-2.4 MG/DL Total Bilirubin 0.4 0.1-1.0 MG/DL Aspartate Amino Transf (AST/SGOT) 10 5-34 U/L Alanine Aminotransferase (ALT/SGPT) 13 0-55 U/L Alkaline Phosphatase 81 40-136 U/L Troponin I < 0.30 <0.30 NG/ML Total Protein 7.9 6.4-8.2 GM/DL Albumin 4.4 3.2-4.5 GM/DL Blood Gas Puncture Site LEFT RADIAL Blood Gas Patient Temperature 97.9 Arterial Blood pH 7.15 *L 7.37-7.43 Arterial Blood Partial Pressure CO2 19 *L 35-45 MMHG Arterial Blood Partial Pressure O2 177 H 79-93 MMHG Arterial Blood HCO3 6 *L 23-27 MMOL/L Arterial Blood Total CO2 6.8 L 21.0-31.0 MMOL/L Arterial Blood Oxygen Saturation 99 94-100 % Arterial Blood Base Excess -21.3 L -2.5-2.5 MMOL/L Juanito Test POSITIVE Blood Gas Ventilator Setting NO Blood Gas Inspired Oxygen ROOM AIR My Orders Orders - GEOVANNI LOYOLA Accucheck Stat ONCE (11/26/17 18:53) Cbc With Automated Diff (11/26/17 18:53) Comprehensive Metabolic Panel (11/26/17 18:53) Magnesium (11/26/17 18:53) Troponin I (11/26/17 18:53) Ua Culture If Indicated (11/26/17 18:53) Chest Pa/Lat (2 View) (11/26/17 18:53) Albuterol/Ipra Inhalation Soln (Duoneb I (11/26/17 19:00) Saline Lock/Iv-Start (11/26/17 18:53) Ns Iv 1000 Ml (Sodium Chloride 0.9%) (11/26/17 18:53) Svn Sm Volume Nebulizer Rt-Rfs (11/26/17 18:53) Ekg Tracing (11/26/17 18:53) Saline Lock/Iv-Start (3/20/18 19:04) Ns Iv 1000 Ml (Sodium Chloride 0.9%) (11/26/17 19:04) Arterial Blood Gas (11/26/17 20:23) Medications Given in ED Current Medications Medications Dose Ordered Sig/Ede Route Start Time Stop Time Status Last Admin Dose Admin Albuterol/ Ipratropium 3 ml ONCE ONCE INH 11/26/17 19:00 11/26/17 19:01 DC 11/26/17 20:15 3 ML Sodium Chloride 1,000 ml @ 0 mls/hr Q0M ONCE IV 11/26/17 18:53 11/26/17 18:55 DC 11/26/17 20:00 999 MLS/HR Sodium Chloride 1,000 ml @ 0 mls/hr Q0M ONCE IV 11/26/17 19:04 11/26/17 19:05 DC 11/26/17 20:00 999 MLS/HR Vital Signs/I&O Vital Sign - Last 12Hours 11/26/17 11/26/17 18:35 20:15 Temp 97.9 Pulse 131 Resp 14 B/P (MAP) 134/85 (101) Pulse Ox 96 93 O2 Delivery Room Air Capillary Refill : Progress Note #1: Time: 19:01 Progress Note Accu-Chek reveals his blood sugars 394. Start giving him lots of fluids and obtain a urinalysis in anticipation for possible DKA contributing to his weakness. His lungs sound fine although we'll give him a breathing treatment see if they open up at all. His been on a lot of steroids recently which could cause a lot of trouble with his blood glucose especially if he's out of insulin for his pump. He appears clinically dry and he is tachycardic which would go with being dehydrated. Progress Note #2: Time: 20:37 Progress Note Medial and elevated and CO2 is 8. Gap was 28. This is consistent with DKA. Lungs sound fine even after the breathing treatment so he is probably not in COPD exacerbation. He is taking his Brio Elipta And has completed his prednisone. ECG Initial ECG Impression Date: Nov 26, 2017 Initial ECG Impression Time: 19:14 Initial ECG Rate: 102 Initial ECG Rhythm: S.Tach Initial ECG Intervals: Normal Initial ECG Impression: Normal, Nonspecific Changes Initial ECG Comparisson: Unchanged Comment There is no significant ST segment elevation. Sinus tachycardia. Diagnostic Imaging Diagonstic Imaging: Xray (2v) Plain Films/CT/US/NM/MRI: chest Comments No acute cardiopulmonary process. NAME: RYAN SAMPSON [facility] REC#: [id number] PT STATUS: REG ER : 1950 PHYSICIAN: GEOVANNI LOYOLA MD ADMIT DATE: 11/26/17/ER Draft Date of Exam:11/26/17 CHEST PA/LAT (2 VIEW) Patient History: Shortness of breath and weakness. Technique: Two views of the chest Comparison: 11/07/2017 FINDINGS: The lung volumes are normal. No focal consolidation is seen. No large pleural effusion or pneumothorax is seen. The cardiomediastinal silhouette is normal in size and contour. The left-sided AICD is in stable position. No acute osseous abnormality is seen. Old left fifth rib defect is noted. Gas underlying the diaphragm appears to be intraluminal. IMPRESSION: No acute pulmonary abnormality seen. Dictated on workstation # [id number] Dict: 11/26/172035 Trans: 11/26/172037 [facility] [id number] Interpreted by: VINOD GRAVES MD Electronically signed by: Reviewed: Reviewed by Me Departure Communication (Admissions) Time/Spoke to Admitting Phy: 20:[address] Petty. Discussed case lab imaging findings and concern for DKA. She is okay with DKA protocol and will see the patient. Impression Impression: Primary Impression: DKA, type 2 Qualified Codes: E11.10 - Type 2 diabetes mellitus with ketoacidosis without coma; Z79.4 - intermodal customer service (current) use of insulin Additional Impressions: EDDIE (acute kidney injury) Hyponatremia Dehydration Disposition: ADMITTED INPATIENT Condition: Stable (ERASED) Admissions Decision to Admit Reason: Admit from ER (General) Decision to Admit/Date: Nov 26, 2017 Time/Decision to Admit Time: 20:37 Departure-Patient Inst. Referrals: ZACKARY PETTY DO (PCP/Family) Primary Care Physician Copy Copies To 1: ZACKARY PETTY TITUS J Nov 26, 2017 19:01
[2017-11-26 19:25] LABS: BILIRUBIN,URINE NEGATIVE (NEGATIVE); CLARITY,URINE CLEAR; COLOR,URINE YELLOW; GLUCOSE, URINE (UA) 4+ (NEGATIVE); KETONES,URINE 4+ (NEGATIVE); LEUKOCYTE ESTERASE ,URINE NEGATIVE (NEGATIVE); NITRITE,URINE NEGATIVE (NEGATIVE); PH,URINE 5 (5-9); PROTEIN,URINE 2+ (NEGATIVE); UROBILINOGEN,URINE NORMAL (NORMAL)
[2017-11-26 19:32] LABS: WBC,URINE 0-2 /HPF
[2017-11-26 19:52] LABS: BASOPHILS % (AUTO) 0 % (0-10); EOSINOPHILS # (AUTO) 0.1 10^3/uL (0.0-0.3); EOSINOPHILS % (AUTO) 1 % (0-10); HEMATOCRIT 50 % (40-54); HEMOGLOBIN 16.4 G/DL (13.3-17.7); LYMPHOCYTES # (AUTO) 1.8 X 10^3 (1.0-4.0); LYMPHOCYTES % (AUTO) 18 % (12-44); MEAN CORPUSCULAR HEMOGLOBIN 28 PG (25-34); MEAN CORPUSCULAR HGB CONC 33 G/DL (32-36); MEAN CORPUSCULAR VOLUME 84 FL (80-99); MEAN PLATELET VOLUME 11.3 FL (7.4-10.4); MONOCYTES # (AUTO) 0.4 X 10^3 (0.0-1.0); MONOCYTES % (AUTO) 5 % (0-12); NEUTROPHILS # (AUTO) 7.2 X 10^3 (1.8-7.8); NEUTROPHILS % (AUTO) 76 % (42-75); PLATELET COUNT 223 10^3/uL (130-400); RED BLOOD COUNT 5.96 10^6/uL (4.35-5.85); RED CELL DISTRIBUTION WIDTH 14.6 % (10.0-14.5); WHITE BLOOD COUNT 9.5 10^3/uL (4.3-11.0)
[2017-11-26 20:09] LABS: ALANINE AMINOTRANSFERASE 13 U/L (0-55); ALBUMIN 4.4 GM/DL (3.2-4.5); ALKALINE PHOSPHATASE 81 U/L (40-136); BILIRUBIN,TOTAL 0.4 MG/DL (0.1-1.0); BUN/CREATININE RATIO 12; CALCIUM 10.8 MG/DL (8.5-10.1); CHLORIDE 96 MMOL/L (98-107); CREATININE SERUM 2.44 MG/DL (0.60-1.30); GFR ESTIMATED 26; MAGNESIUM 1.9 MG/DL (1.8-2.4); POTASSIUM 4.7 MMOL/L (3.6-5.0); SODIUM 132 MMOL/L (135-145); TOTAL PROTEIN 7.9 GM/DL (6.4-8.2)
[2017-11-26 20:17] LABS: CARBON DIOXIDE 8 MMOL/L (21-32); GLUCOSE 468 MG/DL (70-105)
[2017-11-26 20:31] LABS: ABG BASE EXCESS -21.3 MMOL/L (-2.5-2.5); ABG OXYGEN SATURATION 99 % (94-100); ABG PO2 177 MMHG (79-93); ABG TCO2 6.8 MMOL/L (21.0-31.0)
[2017-11-26 20:32] LABS: ABG PH 7.15 (7.37-7.43)
[2017-11-26 20:33] LABS: ABG PCO2 19 MMHG (35-45); ALLENS TEST POSITIVE; INSPIRED O2 ROOM AIR; VENTILATOR NO
[2017-11-26 20:34] LABS: PATIENT TEMP 97.9
--- NOTE | 2017-11-26 20:38 | Diagnostic Imaging Report ---
Patient History: Shortness of breath and weakness. Technique: Two views of the chest Comparison: 11/07/2017 FINDINGS: The lung volumes are normal. No focal consolidation is seen. No large pleural effusion or pneumothorax is seen. The cardiomediastinal silhouette is normal in size and contour. The left-sided AICD is in stable position. No acute osseous abnormality is seen. Old left fifth rib defect is noted. Gas underlying the diaphragm appears to be intraluminal. IMPRESSION: No acute pulmonary abnormality seen. Dictated by: Dictated on workstation # [id number]
--- OUTSIDE RECORDS SUMMARY | 2017-11-26 20:46 | XMS REPORT | Continuity of Care Document ---
Author Author [facility] Organization [facility] Address Unknown Phone Unavailable Allergies Active Description Code Type Severity Reaction Onset Reported/Identified Relationship to Patient Clinical Status Yes No Known Drug Allergies [id number] Drug Allergy Unknown N/A 03/17/2008 Yes No [...] Arnold Ot I25.10 ATHSCL HEART DISEASE OF [place] CORONARY 04/05/2017 MARTELL GANDHI MD Ot I25.5 ISCHEMIC CARDIOMYOPATHY 04/12/2017 ADAIR-MIRI MD, MARTELL E Ot I25.10 ATHSCL HEART DISEASE OF [place] CORONARY 04/12/2017 OKSANA GONZÁLES, MARTELL Arnold Ot I25.5 ISCHEMIC CARDIOMYOPATHY 08/20/2017 JEFFERSON [...] S Ot I25.10 ATHSCL HEART DISEASE OF [place] CORONARY 08/20/2017 JEFFERSON SCHMID DOLORES S Ot I25.2 OLD MYOCARDIAL INFARCTION 08/20/2017 JEFFERSON SCHMID DOLORES S Ot I48.91 UNSPECIFIED ATRIAL FIBRILLATION 08/20/2017 JEFFERSON SCHMID DOLORES S Ot R07.89 OTHER CHEST PAIN 08/20/2017 JEFFERSON SCHMID DOLORES S Ot R09.02 HYPOXEMIA 08/20/2017 JEFFERSON SCHMID DOLORES S Ot Z79.4 YOUTH PROBATION OFFICER (CURRENT) USE OF INSULIN 08/20/2017 JEFFERSON SCHMID DOLORES S Ot Z86.73 PRSNL HX OF TIA (TIA), AND CEREB INFRC W 08/20/2017 JEFFERSON SCHMID DOLORES S Ot Z87.891 PERSONAL HISTORY OF NICOTINE DEPENDENCE 08/20/2017 JEFEFRSON SCHMID DOLORES S Ot Z91.11 PATIENT'S NONCOMPLIANCE [...] APRN Ot I25.10 ATHSCL HEART DISEASE OF [place] CORONARY 11/11/2017 THALIA CABALLERO APRN Ot I25.2 OLD MYOCARDIAL INFARCTION 11/11/2017 THALIA CABALLERO APRN Ot I48.91 UNSPECIFIED ATRIAL FIBRILLATION 11/11/2017 THALIA CABALLERO APRN Ot J44.9 CHRONIC OBSTRUCTIVE PULMONARY DISEASE, U 11/11/2017 THALIA CABALLERO APRN Ot N17.9 ACUTE KIDNEY FAILURE, UNSPECIFIED 11/11/2017 THALIA CABALLERO APRN Ot R53.83 OTHER FATIGUE 11/11/2017 THALIA CABALLERO APRN Ot Z79.01 YOUTH PROBATION OFFICER (CURRENT) USE OF ANTICOAGULANT 11/11/2017 THALIA CABALLERO APRN Ot Z79.4 YOUTH PROBATION OFFICER (CURRENT) USE OF INSULIN 11/11/2017 THALIA CABALLERO APRN Ot Z79.52 YOUTH PROBATION OFFICER (CURRENT) USE OF SYSTEMIC STER 11/11/2017 THALIA CABALLERO APRN Ot Z79.82 [facility] (CURRENT) USE OF ASPIRIN 11/11/2017 THALIA CABALLERO [...] Procedures Code [place] [address] MYOCARDIAL PERFUSION MULTI STUDIES EDY DAY 04/03/2016 Results Test Result Range BMP - 07/15/17 11:15 GFR 58 >=60 GFR NonAfrican Gabonese 48 >=60 SODIUM:SCNC:PT:SER/PLAS:QN: 135 mmol/L 136-145 POTASSIUM:SCNC:PT:SER/PLAS:QN: [...] toxic granules detection by light microscopy 1+ [facility] Comprehensive metabolic panel - 08/20/17 05:18 [...] enzyme (SARAH BETH) measurement 56 U/L 9-67 Capillary blood glucose measurement by glucometer (mass/volume) - 11/26/17 19: 00 Capillary blood glucose measurement by glucometer (mass/volume) 394 mg/dL 70-110 Complete urinalysis with reflex to culture - 11/26/17 19:10 Urine color determination YELLOW NRG Urine clarity determination CLEAR NRG Urine pH measurement by test strip 5 5-9 Specific gravity of urine by test strip 1.025 1.016- 1.022 Urine protein assay by test strip, semi-quantitative 2+ NEGATIVE Urine glucose detection by automated test strip 4+ NEGATIVE Erythrocytes detection in urine sediment by light microscopy NEGATIVE NEGATIVE Urine ketones detection by automated test strip 4+ NEGATIVE Urine nitrite detection by test strip NEGATIVE NEGATIVE Urine total bilirubin detection by test strip NEGATIVE NEGATIVE Urine urobilinogen measurement by automated test strip (mass/volume) NORMAL NORMAL Urine leukocyte esterase detection by dipstick NEGATIVE NEGATIVE Automated urine sediment erythrocyte count by microscopy (number/high power field) NONE NRG Automated urine sediment leukocyte count by microscopy (number/high power field ) [HPF] NRG Bacteria detection in urine sediment by light microscopy NONE NRG Crystals detection in urine sediment by light microscopy NONE NRG Casts detection in urine sediment by light microscopy PRESENT NRG Mucus detection in urine sediment by light microscopy NEGATIVE NRG Complete urinalysis with reflex to culture NO NRG Hyaline casts detection in urine sediment by light microscopy 5-10 NRG Complete blood count (CBC) with automated white blood cell (WBC) differential - 11/26/17 19:25 Blood leukocytes automated count (number/volume) 9.5 10*3/uL 4.3-11.0 Blood erythrocytes automated count (number/volume) 5.96 10*6/uL 4.35-5.85 Venous blood hemoglobin measurement (mass/volume) 16.4 g/dL 13.3-17.7 Blood hematocrit (volume fraction) 50 % 40-54 Automated erythrocyte mean corpuscular volume 84 [foz_us] 80-99 Automated erythrocyte mean corpuscular hemoglobin (mass per erythrocyte) 28 pg 25-34 Automated erythrocyte mean corpuscular hemoglobin concentration measurement ( mass/volume) 33 g/dL 32-36 Automated erythrocyte distribution width ratio 14.6 % 10.0-14.5 Automated blood platelet count (count/volume) 223 10*3/uL 130-400 Automated blood platelet mean volume measurement 11.3 [foz_us] 7.4-10.4 Automated blood neutrophils/100 leukocytes 76 % 42-75 Automated blood lymphocytes/100 leukocytes 18 % 12-44 Blood monocytes/100 leukocytes 5 % 0-12 Automated blood eosinophils/100 leukocytes 1 % 0-10 Automated blood basophils/100 leukocytes 0 % 0-10 Blood neutrophils automated count (number/volume) 7.2 10*3 1.8-7.8 Blood lymphocytes automated count (number/volume) 1.8 10*3 1.0-4.0 Blood monocytes automated count (number/volume) 0.4 10*3 0.0-1.0 Automated eosinophil count 0.1 10*3/uL 0.0-0.3 Automated blood basophil count (count/volume) 0.0 10*3/uL 0.0-0.1 Comprehensive metabolic panel - 11/26/17 19:25 Serum or plasma sodium measurement (moles/volume) 132 mmol/L 135-145 Serum or plasma potassium measurement (moles/volume) 4.7 mmol/L 3.6-5.0 Serum or plasma chloride measurement (moles/volume) 96 mmol/L 98-107 Carbon dioxide 8 mmol/L 21-32 Serum or plasma anion gap determination (moles/volume) 28 mmol/L 5-14 Serum or plasma urea nitrogen measurement (mass/volume) 30 mg/dL 7-18 Serum or plasma creatinine measurement (mass/volume) 2.44 mg/dL 0.60-1.30 Serum or plasma urea nitrogen/creatinine mass ratio 12 NRG Serum or plasma creatinine measurement with calculation of estimated glomerular filtration rate 26 NRG Serum or plasma glucose measurement (mass/volume) 468 mg/dL 70-105 Serum or plasma calcium measurement (mass/volume) 10.8 mg/dL 8.5-10.1 Serum or plasma total bilirubin measurement (mass/volume) 0.4 mg/dL 0.1-1.0 Serum or plasma alkaline phosphatase measurement (enzymatic activity/volume) 81 U/L 40-136 Serum or plasma aspartate aminotransferase measurement (enzymatic activity/ volume) 10 U/L 5-34 Serum or plasma alanine aminotransferase measurement (enzymatic activity/volume ) 13 U/L 0-55 Serum or plasma protein measurement (mass/volume) 7.9 g/dL 6.4-8.2 Serum or plasma albumin measurement (mass/volume) 4.4 g/dL 3.2-4.5 Magnesium - 11/26/17 19:25 Magnesium 1.9 mg/dL 1.8-2.4 Serum or plasma troponin i.cardiac measurement (mass/volume) - 11/26/17 19:25 Serum or plasma troponin i.cardiac measurement (mass/volume) < ng/ mL <0.30 Arterial blood gas measurement - 11/26/17 20:20 Blood pCO2 19 mm[Hg] 35-45 Blood pO2 177 mm[Hg] 79-93 Arterial blood bicarbonate measurement (moles/volume) 6 mmol/L 23-27 Arterial blood base excess by calculation -21.3 mmol/L - 2.5-2.5 Arterial blood oxygen saturation measurement 99 % 94-100 * Inhaled oxygen flow rate ROOM AIR NRG Arterial blood pH measurement with patient temperature correction 7.15 7.37-7.43 Arterial blood carbon dioxide, total measurement (moles/volume) 6.8 mmol/L 21.0-31.0 Body site LEFT RADIAL NRG Assessment of wrist artery patency prior to arterial puncture POSITIVE NRG Setting of ventilation mode NO NRG Measurement of body temperature 97.9 NRG Encounters ACCT No. Visit Date/Time Discharge Status Pt. Type Provider Facility Loc./Unit Complaint [id number] 11/20/2017 15:03:00 11/20/2017 23:59:59 CLS Outpatient KAYCE MITTAL APRN [facility] LAB J44.9,R06.00,D86.9 [id number] 11/19/2017 16:30:00 11/19/2017 23:59:59 CLS Preadmit KAYCE MITTAL APRN [facility] RAD J44.9 COPD [id number] 11/19/2017 16:29:00 11/19/2017 23:59:59 CLS Preadmit KAYCE MITTAL APRN [facility] RT J44.9 COPD [id number] 11/07/2017 16:01:00 11/07/2017 19:27:00 DIS Outpatient THALIA CABALLERO APRN [facility] ER TROUBLE SWALLOWING, VOICE GOING, SWEATY [id number] 08/19/2017 17:45:00 08/20/2017 13:30:00 DIS Inpatient ORENDER JOB SCHMIDDOLORES S [facility] 4TH SARCOIDOSIS, HYPERGLYCEMIA [id number] 03/14/2017 12:09:00 03/14/2017 23:59:59 CLS Outpatient OKSANA GONZÁLES, MARTELL Arnold [facility] RAD I25.10,I25.5 [id number] 05/14/2014 20:58:00 05/15/2014 06:45:00 DIS Outpatient JOB PETTY DOQUELINE S [facility] SLEEP NORI [id number] 04/29/2014 09:42:00 04/29/2014 23:59:59 CLS Outpatient ANGELANDGORDO SCHMID DOLORES S [facility] RAD HX OF SARCOID , DYSPENEA [id number] 04/27/2014 20:32:00 04/28/2014 05:00:00 DIS Outpatient JEFFERSON SCHMID DOLORES S [facility] SLEEP NORI,ABNORMAL LIMB MOVEMENT [id number] 08/27/2013 10:06:00 08/27/2013 23:59:59 CLS Outpatient JOB PETTY DOQUELINE S [facility] RAD JESUS FLANK PAIN, HEMATURIA [id number] 11/26/2017 19:07:00 Document Registration [id number] 04/28/2010 10:48:00 Document Registration [id number] 07/15/2017 10:26:00 07/15/2017 15:33:00 DIS Outpatient Martell Scruggs. [facility] [id number] 04/13/2016 00:00:00 DIS Document Registration [id number] 04/10/2016 10:38:00 04/10/2016 18:15:00 DIS Outpatient Angela GONZÁLES, [facility] CORRIE 08/01/18 11/13/2017 15:33:28 11/13/2017 23:59:59 [facility] Outpatient Dolores Petty
[2017-11-26] MEDS ORDERED: D5 1/2 NS W/KCL 20 MEQ/L 1,000 ML IV ONE (21:29)
[2017-11-26] MEDS ORDERED: inSUlin (REGULAR) HUMAN 1 UNIT/0.01 ML (CHARGE PER UNIT) ONE (21:34)
[2017-11-26] MEDS ORDERED: NS (IVPB) 100 ML ONE (21:34)
[2017-11-26] MEDS: D5 1/2 NS W/KCL 20 MEQ/L 1,000 ML IV SCH (22:00)
[2017-11-26] MEDS ORDERED: INSULIN REGULAR TPN IV SCH (22:00)
[2017-11-26] MEDS ORDERED: NS IV 1000 ML X 1 WIDE OPEN IV ONE (22:00)
[2017-11-26] MEDS ORDERED: DRIP ONLY IV SCH (22:00)
[2017-11-26] MEDS ORDERED: oxyCODONE/APAP 10/325MG (PERCOCET 10) TABLET PO PRN (22:00)
[2017-11-26] MEDS ORDERED: CATHETER FLUSH 10 ML SYR IV PRN (22:00)
[2017-11-26] MEDS ORDERED: 1/2 NS W/KCL 20 MEQ/L 1,000 ML IV SCH (22:00)
[2017-11-26] MEDS ORDERED: NORMAL SALINE IV SCH (22:00)
[2017-11-26 22:23] LABS: CALCIUM 9.7 MG/DL (8.5-10.1); CREATININE SERUM 2.29 MG/DL (0.60-1.30); POTASSIUM 5.2 MMOL/L (3.6-5.0)
[2017-11-26] MEDS: DEXTROSE 10% IV SOLUTION 1,000 ML IV SCH (22:51)
[2017-11-26] MEDS: 1/2 NS IV SOLUTION 1,000 ML IV SCH (22:51)
[2017-11-26] MEDS: D5 1/2 NS IV 1,000 ML IV SCH (22:51)
[2017-11-26] MEDS: CATHETER FLUSH 10 ML SYR IV SCH (22:51)
[2017-11-26] MEDS ORDERED: 1/2 NS W/KCL 20 MEQ/L 1,000 ML IV ONE (23:22)
[2017-11-26] MEDS: 1/2 NS W/KCL 20 MEQ/L 1,000 ML IV SCH (23:28)
[2017-11-26] MEDS: REGULAR inSUlin DRIP 250 UNITS/NS 250 ML IV SCH ×2 (23:39)
[2017-11-26] MEDS ORDERED: RT-ALBUTEROL/IPRATROPIUM 3 ML (DUONEB) VIAL INH PRN (23:45)
[2017-11-27] VITALS (24 sets, daily range): BP systolic 108–159; BP diastolic 61–88
[2017-11-27] MEDS ORDERED: CATHETER FLUSH 10 ML SYR IV PRN (01:30)
[2017-11-27 02:33] LABS: BASOPHILS % (AUTO) 0 % (0-10); EOSINOPHILS % (AUTO) 1 % (0-10); HEMATOCRIT 48 % (40-54); HEMOGLOBIN 16.1 G/DL (13.3-17.7); LYMPHOCYTES # (AUTO) 1.5 X 10^3 (1.0-4.0); LYMPHOCYTES % (AUTO) 16 % (12-44); MEAN CORPUSCULAR HEMOGLOBIN 28 PG (25-34); MEAN CORPUSCULAR HGB CONC 33 G/DL (32-36); MEAN CORPUSCULAR VOLUME 83 FL (80-99); MEAN PLATELET VOLUME 11.1 FL (7.4-10.4); MONOCYTES # (AUTO) 0.5 X 10^3 (0.0-1.0); MONOCYTES % (AUTO) 6 % (0-12); NEUTROPHILS # (AUTO) 6.8 X 10^3 (1.8-7.8); NEUTROPHILS % (AUTO) 77 % (42-75); PLATELET COUNT 214 10^3/uL (130-400); RED BLOOD COUNT 5.84 10^6/uL (4.35-5.85); RED CELL DISTRIBUTION WIDTH 14.6 % (10.0-14.5); WHITE BLOOD COUNT 8.9 10^3/uL (4.3-11.0)
[2017-11-27 02:51] LABS: CALCIUM 9.9 MG/DL (8.5-10.1); PHOSPHORUS 1.4 MG/DL (2.3-4.7); POTASSIUM 4.3 MMOL/L (3.6-5.0)
[2017-11-27] MEDS: D5 1/2 NS W/KCL 20 MEQ/L 1,000 ML IV SCH ×6 (04:06→22:10)
[2017-11-27] MEDS: D5 1/2 NS IV 1,000 ML IV SCH ×6 (04:27→22:09)
[2017-11-27] MEDS: 1/2 NS W/KCL 20 MEQ/L 1,000 ML IV SCH ×6 (04:27→22:10)
[2017-11-27] MEDS: 1/2 NS IV SOLUTION 1,000 ML IV SCH ×6 (04:27→22:10)
[2017-11-27] MEDS: DEXTROSE 10% IV SOLUTION 1,000 ML IV SCH ×2 (04:32→16:22)
[2017-11-27] MEDS: POTASSIUM CL 10MEQ/50ML IVPB 50 ML IV SCH (06:06)
[2017-11-27] MEDS: CATHETER FLUSH 10 ML SYR IV SCH ×3 (06:06→22:10)
[2017-11-27] MEDS: MAGNESIUM 1 GM/100 ML IVPB 100 ML IV SCH (06:07)
[2017-11-27] MEDS: KCL 20 MEQ TAB (K-DUR) PO SCH (06:07)
--- NOTE | 2017-11-27 07:42 | Diagnostic Imaging Report ---
INDICATION: Diabetic ketoacidosis. Comparison with 11/26/2017. FINDINGS: Portable chest. Median sternotomy changes and ICD pacer unchanged. Heart is not enlarged. The lungs are well-aerated. There are no infiltrates or masses. No hilar adenopathy. No pneumothorax or pleural effusion. IMPRESSION: Stable portable chest with postoperative residue. Dictated by: Dictated on workstation # [id number]
[2017-11-27] MEDS: RT-ALBUTEROL/IPRATROPIUM 3 ML (DUONEB) VIAL INH SCH ×2 (08:14→18:52)
[2017-11-27] MEDS ORDERED: ATOR40TA70 PO (09:07)
[2017-11-27] MEDS ORDERED: CITA20TA7 PO (09:07)
[2017-11-27] MEDS ORDERED: METO50TA15 PO ×2 (09:07)
[2017-11-27] MEDS ORDERED: ISM60TCR PO (09:07)
[2017-11-27] MEDS ORDERED: FLUT1BLS INH (09:07)
[2017-11-27 10:35] LABS: CALCIUM 9.9 MG/DL (8.5-10.1); CREATININE SERUM 1.72 MG/DL (0.60-1.30)
[2017-11-27] MEDS: REGULAR inSUlin DRIP 250 UNITS/NS 250 ML IV SCH ×2 (11:40)
[2017-11-27] MEDS ORDERED: ONDANSETRON 4 MG/2 ML (SDV) Z0FRAN IVP PRN (12:30)
--- NOTE | 2017-11-27 13:07 | History & Physicial ---
History of Present Illness History of Present Illness Reason for visit/HPI This is a 67 year old male with known uncontrolled insulin requiring diabetes who presented to the emergency room with weakness, dyspnea, nausea and dysphagia. He has an insulin pump but states he ran was out of his insulin for at least 3 days and was just too weak to fill up his pump. He has seen Dr. Pabon and is scheduled for an EGD next week and has seen Dr. Arana this week as well. The patient and were upset that he had not been given any steroids to help his energy, breathing and dysphagia. His had called my office requesting steroids after seeing Dr. Arana but did not mention that he was out of insulin and not eating. He was found to be in acute DKA in the emergency room with a blood sugar of 468 and an anion gap of 28. He was in acute renal failure with a creatinine of 2.4 and electrolyte abnormalities. It was decided to admit him to the ICU on the DKA protocol. Date of Admission Nov 26, 2017 at 8:43 pm Date Seen by Provider: Nov 27, 2017 Time Seen by Provider: 13:02 I consulted on this patient on 11/27/17 13:02 Attending Physician Dolores Petty DO Admitting Physician Dolores Petty DO Consult Allergies and Home Medications Allergies Coded Allergies: No Known Drug Allergies (Verified , 03/17/08) Home Medications Aspirin 81 Mg Tab.chew, 81 MG PO DAILY, (Reported) Atorvastatin Calcium 40 Mg Tablet, 40 MG PO DAILY, (Reported) Citalopram Hydrobromide 20 Mg Tablet, 20 MG PO DAILY, (Reported) Digoxin 125 Mcg Tablet, 125 MCG PO [id number], (Reported) Finasteride 5 Mg Tablet, 5 MG PO 1700, (Reported) LAST FILLED #90 12-5-17 Fluticasone/Vilanterol 1 Each Blst.w.dev, 1 PUFF INH DAILY, (Reported) Insulin Lispro 100 Unit/1 Ml Vial, SQ PER INSULIN PUMP, (Reported) Isosorbide Mononitrate 60 Mg Tab, 60 MG PO DAILY, (Reported) Metoprolol Tartrate 50 Mg Tablet, 50 MG PO DAILY, (Reported) Metoprolol Tartrate 50 Mg Tablet, 25 MG PO 1500, (Reported) TAKES 1/2 (50MG) TABLET Morphine Sulfate 30 Mg Tablet.er, 30 MG PO BID, (Reported) Oxycodone HCl/Acetaminophen 1 Each Tablet, 2 TAB PO Q6H PRN for PAIN-MODERATE, ( Reported) Pantoprazole Sodium 40 Mg Tablet.dr, 80 MG PO DAILY, (Reported) TAKES 2 (40MG) TABLETS Rivaroxaban 20 Mg Tablet, 20 MG PO DAILY, (Reported) Tamsulosin HCl 0.4 Mg Cap.er.24h, 0.4 MG PO DAILY, (Reported) Patient Home Medication List Home Medication List Reviewed: Yes Past Exvcalj-Aeyueg-Ynmtps Hx Patient Social History Alcohol Use: Denies Use Recreational Drug Use: No Smoking Status: Former Smoker Former Smoker, Quit: May 20, 2001 Type Used: Cigarettes Physical Abuse Screen: No Sexual Abuse: No Recent Foreign Travel: No Contact w/other who traveled: No Recent Hopitalizations: Yes Recent Infectious Disease Expo: No Immunizations Up To Date Date of Pneumonia Vaccine: Jun 23, 2014 Date of Influenza Vaccine: Jun 11, 2017 Seasonal Allergies Seasonal Allergies: No Surgeries Yes (BYPASS X2, BACK, SHOULDER , NERVE RELEASE ON RIGHT ELBOW) Appendectomy, Cardiac, CABG, Defibrillator, Pacemaker Respiratory Yes (sarcoidosis) Currently Using CPAP: No Currently Using BIPAP: Yes Cardiovascular Yes Atrial Fibrillation, Coronary Artery Disease, Heart Attack, High Cholesterol, Hypertension, Irregular Heartbeat Neurological Yes TIA Reproductive System Hx Reproductive Disorders: No Genitourinary Yes Prostate Problems Gastrointestinal No Musculoskeletal Yes Chronic Back Pain Endocrine History of Endocrine Disorders: Yes Endocrine Disorders: Diabetes, Insulin dep HEENT History of HEENT Disorders: No Cancer No Psychosocial History of Psychiatric Problem: Yes Behavioral Health Disorders: Depression Integumentary History of Skin or Integumenta: No Blood Transfusions History of Blood Disorders: No Family Medical History Significant Family History: No Pertinent Family Hx Family Hx: Arthritis 19 FATHER 19 MOTHER G8 SISTER G8 SISTER G8 SISTER Cataracts G8 SISTER Diabetes mellitus G8 SISTER G8 SISTER Constitutional: malaise, weakness EENTM: No see HPI, No no symptoms reported, No ear discharge, No hearing loss, No ear pain, No blurred vision, No double vision, No eye pain, No tearing, No vision loss, No dental problems, No hoarseness, No mouth pain, No mouth swelling , No epistaxis, No nose congestion, No nose pain, No throat pain, No throat swelling, No other Respiratory: dyspnea on exertion, short of breath Cardiovascular: No no symptoms reported, No see HPI, No chest pain, No edema, No Hx of Intervention, No palpitations, No syncope, No vascular heart diseas, No other Gastrointestinal: dysphagia, loss of appetite, nausea Genitourinary: No no symptoms reported, No see HPI, No decreased output, No discharge, No dysuria, No frequency, No hematuria, No hesitancy, No incontinence , No nocturia, No pain, No other Musculoskeletal: back pain (chronic) Skin: No no symptoms reported, No see HPI, No change in color, No change in hair/nails, No dryness, No hx of skin cancer, No lesions, No lumps, No pruritus , No rash, No other Psychiatric/Neurological: Numbness, Pre-Existing Deficit, Weakness Physical Exam Vital Signs Vital Signs - First Documented 11/26/17 11/26/17 18:35 20:15 Temp 97.9 Pulse 131 Resp 14 B/P (MAP) 134/85 (101) Pulse Ox 96 O2 Delivery Room Air Capillary Refill : Less Than 3 Seconds General Appearance: No Apparent Distress HEENT: Normal ENT Inspection Neck: Supple Respiratory: Lungs Clear Cardiovascular: Regular Rate, Rhythm, Systolic Murmur, Gallop/S4 Gastrointestinal: Normal Bowel Sounds, Non Tender, Soft Rectal: Deferred Back: No CVA Tenderness Extremity: Non Tender, No Calf Tenderness, No Pedal Edema Neurologic/Psychiatric: Motor Weakness (diffuse), Other (drowsy but will awaken and answere questions appropriately) Skin: Warm/Dry Comments Laboratory Tests 11/26/17 19:00: Glucometer 394H 11/26/17 19:10: Urine Color YELLOW, Urine Clarity CLEAR, Urine pH 5, Urine Specific Williamson 1.025H, Urine Protein 2+H, Urine Glucose (UA) 4+H, Urine Ketones 4+H, Urine Nitrite NEGATIVE, Urine Bilirubin NEGATIVE, Urine Urobilinogen NORMAL, Urine Leukocyte Esterase NEGATIVE, Urine RBC (Auto) NEGATIVE, Urine RBC NONE, Urine WBC 0-2, Urine Crystals NONE, Urine Bacteria NONE, Urine Casts PRESENT, Urine Hyaline Casts 5-10H, Urine Mucus NEGATIVE, Urine Culture Indicated NO 11/26/17 19:25: White Blood Count 9.5, Red Blood Count 5.96H, Hemoglobin 16.4, Hematocrit 50, Mean Corpuscular Volume 84, Mean Corpuscular Hemoglobin 28, Mean Corpuscular Hemoglobin Concent 33, Red Cell Distribution Width 14.6H, Platelet Count 223, Mean Platelet Volume 11.3H, Neutrophils (%) (Auto) 76H, Lymphocytes (%) (Auto) 18, Monocytes (%) (Auto) 5, Eosinophils (%) (Auto) 1, Basophils (%) (Auto) 0, Neutrophils # (Auto) 7.2, Lymphocytes # (Auto) 1.8, Monocytes # (Auto) 0.4, Eosinophils # (Auto) 0.1, Basophils # (Auto) 0.0, Sodium Level 132L, Potassium Level 4.7, Chloride Level 96L, Carbon Dioxide Level 8*L, Anion Gap 28H, Blood Urea Nitrogen 30H, Creatinine 2.44H, Estimat Glomerular Filtration Rate 26, BUN/ Creatinine Ratio 12, Glucose Level 468*H, Calcium Level 10.8H, Magnesium Level 1.9, Total Bilirubin 0.4, Aspartate Amino Transf (AST/SGOT) 10, Alanine Aminotransferase (ALT/SGPT) 13, Alkaline Phosphatase 81, Troponin I < 0.30, Total Protein 7.9, Albumin 4.4 11/26/17 20:20: Blood Gas Puncture Site LEFT RADIAL, Blood Gas Patient Temperature 97.9, Arterial Blood pH 7.15*L, Arterial Blood Partial Pressure CO2 19*L, Arterial Blood Partial Pressure O2 177H, Arterial Blood HCO3 6*L, Arterial Blood Total CO2 6.8L, Arterial Blood Oxygen Saturation 99, Arterial Blood Base Excess -21.3L , Juanito Test POSITIVE, Blood Gas Ventilator Setting NO, Blood Gas Inspired Oxygen ROOM AIR 11/26/17 21:34: Glucometer 393H 11/26/17 22:00: Sodium Level 134L, Potassium Level 5.2H, Chloride Level 101, Carbon Dioxide Level 7*L, Anion Gap 26H, Blood Urea Nitrogen 28H, Creatinine 2.29H, Estimat Glomerular Filtration Rate 28, BUN/Creatinine Ratio 12, Glucose Level 452*H, Calcium Level 9.7 11/26/17 22:59: Glucometer 342H 11/27/17 00:04: Glucometer 258H 11/27/17 01:03: Glucometer 206H 11/27/17 02:00: Glucometer 152H 11/27/17 02:05: White Blood Count 8.9, Red Blood Count 5.84, Hemoglobin 16.1, Hematocrit 48, Mean Corpuscular Volume 83, Mean Corpuscular Hemoglobin 28, Mean Corpuscular Hemoglobin Concent 33, Red Cell Distribution Width 14.6H, Platelet Count 214, Mean Platelet Volume 11.1H, Neutrophils (%) (Auto) 77H, Lymphocytes (%) (Auto) 16, Monocytes (%) (Auto) 6, Eosinophils (%) (Auto) 1, Basophils (%) (Auto) 0, Neutrophils # (Auto) 6.8, Lymphocytes # (Auto) 1.5, Monocytes # (Auto) 0.5, Eosinophils # (Auto) 0.0, Basophils # (Auto) 0.0, Sodium Level 137, Potassium Level 4.3, Chloride Level 107, Carbon Dioxide Level 11L, Anion Gap 19H, Blood Urea Nitrogen 25H, Creatinine 2.00H, Estimat Glomerular Filtration Rate 33, BUN/ Creatinine Ratio 13, Glucose Level 129H, Calcium Level 9.9, Phosphorus Level 1.4L, Magnesium Level 2.0 11/27/17 03:09: Glucometer 155H 11/27/17 03:58: Glucometer 135H 11/27/17 04:29: Glucometer 127H 11/27/17 05:57: Glucometer 132H 11/27/17 06:39: Glucometer 134H 11/27/17 07:42: Glucometer 161H 11/27/17 08:50: Glucometer 181H 11/27/17 10:02: Sodium Level 135, Potassium Level 4.0, Chloride Level 106, Carbon Dioxide Level 18L, Anion Gap 11, Blood Urea Nitrogen 22H, Creatinine 1.72H, Estimat Glomerular Filtration Rate 40, BUN/Creatinine Ratio 13, Glucose Level 177H, Calcium Level 9.9 11/27/17 10:06: Glucometer 188H 11/27/17 11:16: Glucometer 160H Assessment/Plan Assessment and Plan 1. Acute DKA--admit to ICU on insulin drip and DKA protocol 2. Acute Renal Failure with electrolyte abnormalities--hydrate and monitor creatinine and electrolytes and will start electrolyte replacement protocols 3. COPD with History of Sarcoid--stable, CXR negative 4. Dysphagia/GERD--resume protonix and has EGD scheduled for next week but will discuss with surgery once stable about possibility of doing while inpatient 5. Hypertension--resume home meds 6. CAD--stable, resume home meds 7. Chronic Pain Syndrome with chronic narcotic use--resume home pain meds Problems: Admission Diagnosis Admission Status: Inpatient Order (span 2 midnights) Reason for Inpatient Admission: Patient has DKA and will be admitted to the ICU on an insulin drip and DKA protocol Clinical Quality Measures DVT/VTE Risk/Contraindication: Risk Factor Score Per Nursin RFS Level Per Nursing on Admit: 3=High DOLORES PETTY DO Nov 27, 2017 1:07 pm
[2017-11-27] MEDS: DIGOXIN 0.125 MG (LANOXIN) TAB PO SCH (13:59)
[2017-11-27] MEDS: ONDANSETRON 4 MG/2 ML (SDV) Z0FRAN IV PRN ×2 (14:22→17:53)
[2017-11-27] MEDS ORDERED: NON-FORMULARY MEDICATION 1 EA EA (Finasteride 5 MG) PO SCH (17:00)
[2017-11-27] MEDS ORDERED: morphine ER 30 MG (MS CONTIN) TAB PO SCH (17:00)
[2017-11-27] MEDS ORDERED: DIGOXIN 0.125 MG (LANOXIN) TAB PO SCH (17:00)
[2017-11-27] MEDS: FINASTERIDE (PROSCAR) 5 MG TAB PO SCH (17:11)
[2017-11-27] MEDS: RIVAROXABAN 20 MG TABLET (XARELTO) PO SCH (17:11)
[2017-11-27] MEDS ORDERED: PROMETHAZINE INJ 25 MG/ML (PHENERGAN) AMP IVP PRN (18:00)
[2017-11-27] MEDS ORDERED: meTOprolol 5 MG/5 ML (LOPRESSOR) VIAL IV SCH (18:00)
[2017-11-27] MEDS ORDERED: METOCLOPRAMIDE INJ 10 MG/2 ML (REGLAN) IVP PRN (18:00)
[2017-11-27] MEDS ORDERED: METOCLOPRAMIDE INJ 10 MG/2 ML (REGLAN) IVP NR (18:06)
[2017-11-27] MEDS: SCOPOLAMINE 1.5 MG (TRANSDERM-SCOP) PATCH TOP SCH (18:44)
[2017-11-27] MEDS: RT-ADVAIR HFA 115/21 MCG PER PUFF IH SCH (18:52)
[2017-11-27] MEDS: morphine ER 30 MG (MS CONTIN) TAB PO SCH (20:02)
[2017-11-27] MEDS ORDERED: PANTOPRAZOLE 40 MG (PROTONIX) TAB PO SCH (21:00)
[2017-11-27] MEDS: oxyCODONE/APAP 10/325MG (PERCOCET 10) TABLET PO PRN (21:14)
[2017-11-27] MEDS: PANTOPRAZOLE 40 MG (PROTONIX) TAB PO SCH (21:14)
[2017-11-27] MEDS: TAMSULOSIN 0.4 MG (FLOMAX) CAP PO SCH (21:14)
[2017-11-27] MEDS: meTOprolol 5 MG/5 ML (LOPRESSOR) VIAL IV PRN (21:14)
[2017-11-28] VITALS (24 sets, daily range): BP systolic 92–131; BP diastolic 46–77
[2017-11-28] MEDS: D5 1/2 NS W/KCL 20 MEQ/L 1,000 ML IV SCH ×5 (03:30→22:49)
[2017-11-28 03:31] LABS: BASOPHILS % (AUTO) 0 % (0-10); EOSINOPHILS % (AUTO) 0 % (0-10); HEMATOCRIT 43 % (40-54); HEMOGLOBIN 14.8 G/DL (13.3-17.7); LYMPHOCYTES # (AUTO) 0.8 X 10^3 (1.0-4.0); LYMPHOCYTES % (AUTO) 9 % (12-44); MEAN CORPUSCULAR HEMOGLOBIN 28 PG (25-34); MEAN CORPUSCULAR HGB CONC 34 G/DL (32-36); MEAN CORPUSCULAR VOLUME 81 FL (80-99); MONOCYTES # (AUTO) 0.8 X 10^3 (0.0-1.0); MONOCYTES % (AUTO) 9 % (0-12); NEUTROPHILS # (AUTO) 7.6 X 10^3 (1.8-7.8); NEUTROPHILS % (AUTO) 82 % (42-75); PLATELET COUNT 159 10^3/uL (130-400); RED CELL DISTRIBUTION WIDTH 14.3 % (10.0-14.5); WHITE BLOOD COUNT 9.3 10^3/uL (4.3-11.0)
[2017-11-28 03:56] LABS: CALCIUM 8.9 MG/DL (8.5-10.1); CREATININE SERUM 1.34 MG/DL (0.60-1.30); MAGNESIUM 1.4 MG/DL (1.8-2.4); POTASSIUM 3.7 MMOL/L (3.6-5.0)
[2017-11-28 04:01] LABS: PHOSPHORUS 0.8 MG/DL (2.3-4.7)
[2017-11-28] MEDS: D5 1/2 NS IV 1,000 ML IV SCH ×3 (04:17→12:02)
[2017-11-28] MEDS: 1/2 NS IV SOLUTION 1,000 ML IV SCH ×3 (04:17→12:02)
[2017-11-28] MEDS: 1/2 NS W/KCL 20 MEQ/L 1,000 ML IV SCH ×3 (04:17→12:02)
[2017-11-28] MEDS: MAGNESIUM 1 GM/100 ML IVPB 100 ML IV SCH ×3 (04:18→04:40)
[2017-11-28] MEDS: DEXTROSE 10% IV SOLUTION 1,000 ML IV SCH ×2 (04:18→12:01)
[2017-11-28] MEDS: POTASSIUM CL 10MEQ/50ML IVPB 50 ML IV SCH (04:18)
[2017-11-28] MEDS: KCL 20 MEQ TAB (K-DUR) PO SCH (04:18)
[2017-11-28] MEDS ORDERED: POT PHOS/NA PHOS (K-PHOS NEUTRAL) PO ONE (04:30)
[2017-11-28] MEDS: meTOprolol 5 MG/5 ML (LOPRESSOR) VIAL IV PRN (04:38)
[2017-11-28] MEDS: ONDANSETRON 4 MG/2 ML (SDV) Z0FRAN IV PRN ×2 (04:38→09:16)
[2017-11-28] MEDS: oxyCODONE/APAP 10/325MG (PERCOCET 10) TABLET PO PRN (04:39)
[2017-11-28] MEDS: CATHETER FLUSH 10 ML SYR IV SCH ×3 (06:54→21:52)
--- NOTE | 2017-11-28 07:55 | Diagnostic Imaging Report ---
INDICATION: DKA. COMPARISON: Comparison is made with the prior examination dated 11/27/2017. FINDINGS: Heart size is normal. There is right basilar atelectasis and pneumonitis. There is no pleural effusion or pneumothorax. Mediastinum is unremarkable. Pacemaker overlies left hemithorax. There has been a previous median sternotomy. IMPRESSION: Right basilar atelectasis and pneumonitis. Dictated by: Dictated on workstation # [id number]
[2017-11-28] MEDS: RT-ADVAIR HFA 115/21 MCG PER PUFF IH SCH ×2 (08:35→19:00)
[2017-11-28] MEDS: RT-ALBUTEROL/IPRATROPIUM 3 ML (DUONEB) VIAL INH SCH ×2 (08:35→19:00)
[2017-11-28] MEDS ORDERED: TAMSULOSIN 0.4 MG (FLOMAX) CAP PO SCH (09:00)
[2017-11-28] MEDS ORDERED: RIVAROXABAN 20 MG TABLET (XARELTO) PO SCH (09:00)
[2017-11-28] MEDS: PANTOPRAZOLE 40 MG (PROTONIX) TAB PO SCH ×2 (10:05→21:52)
[2017-11-28] MEDS: ISOSORBIDE MONONITRATE 60 MG (IMDUR) TAB PO SCH (10:05)
[2017-11-28] MEDS: morphine ER 30 MG (MS CONTIN) TAB PO SCH ×2 (10:05→21:52)
[2017-11-28] MEDS: meTOprolol TARTRATE 50 MG (LOPRESSOR) TAB PO SCH (10:06)
[2017-11-28] MEDS: ATORVASTATIN 40 MG (LIPITOR) TABLET PO SCH (10:06)
[2017-11-28] MEDS: ASPIRIN 81 MG CHEW (CHILDREN'S ASA) PO SCH (10:06)
[2017-11-28 10:57] LABS: CALCIUM 9.5 MG/DL (8.5-10.1); CREATININE SERUM 1.53 MG/DL (0.60-1.30); MAGNESIUM 2.1 MG/DL (1.8-2.4); PHOSPHORUS 1.6 MG/DL (2.3-4.7); POTASSIUM 3.7 MMOL/L (3.6-5.0)
[2017-11-28] MEDS ORDERED: inSUlin DETERMIR 1 UNIT/0.01 ML (LEVEMIR) CHARGE PER UNIT SQ NR (12:15)
--- NOTE | 2017-11-28 12:36 | Progress Note (SOAP) ---
Subjective Date Seen by Provider: Nov 28, 2017 Time Seen by Provider: 12:32 Subjective/Events-last exam Fwup DKA, Acute Renal failure with electrolyte abnormalities, HTN, GERD, Dysphagia, intractable N/V. No N/V since last night. More awake and alert and feels much better. Wanting to eat. Objective Exam Vital Signs Date Time Temp Pulse Resp B/P (MAP) Pulse Ox O2 Delivery O2 Flow Rate FiO2 11/28/17 11:00 105 15 102/57 (72) 91 Room Air 11/28/17 10:00 109 99/65 (76) 96 Room Air 11/28/17 09:00 100 22 97/59 (72) 96 Room Air 11/28/17 08:35 94 Room Air 11/28/17 08:00 90 22 118/77 (91) 99 Room Air 11/28/17 07:00 93 17 92/56 (68) 98 Room Air 11/28/17 07:00 95 11/28/17 06:00 93 18 119/75 (90) 98 Nasal Cannula 3.00 11/28/17 05:00 96 20 101/55 (70) 91 Nasal Cannula 3.00 11/28/17 04:00 105 18 115/65 (82) 95 Room Air 11/28/17 04:00 98.6 11/28/17 04:00 Room Air 11/28/17 03:00 110 26 110/66 (81) 91 Room Air 11/28/17 02:00 109 29 123/68 (86) 92 Room Air 11/28/17 01:00 102 11/28/17 01:00 105 27 127/66 (86) 95 Room Air 11/28/17 00:00 88 20 131/64 (86) 97 Room Air 11/28/17 00:00 Room Air 11/28/17 00:00 97.9 11/27/17 23:00 98 17 108/63 (78) 92 Room Air 11/27/17 22:00 112 19 120/88 (99) 93 Room Air 11/27/17 21:00 101 15 138/87 (104) 95 Room Air 11/27/17 20:08 98.1 Room Air 11/27/17 20:00 86 22 132/67 (88) 96 Room Air 11/27/17 20:00 Room Air 11/27/17 19:00 104 20 159/81 (107) 97 Room Air 11/27/17 19:00 97 11/27/17 18:52 98 Room Air 11/27/17 18:52 92 Room Air 11/27/17 18:00 95 26 133/69 (90) 95 Room Air 11/27/17 17:00 92 19 135/75 (95) 95 Room Air 11/27/17 16:00 Room Air 11/27/17 16:00 86 16 123/65 (84) 97 Room Air 11/27/17 16:00 97.5 Room Air 11/27/17 15:00 90 23 130/75 (93) 96 Room Air 11/27/17 14:00 92 17 130/75 (93) 97 Room Air 11/27/17 13:00 86 20 130/75 (93) 95 Room Air 11/27/17 13:00 89 I & O 11/28/17 07:00 Intake Total 1335 ml Output Total 1800 ml Balance -465 ml Capillary Refill : Less Than 3 Seconds General Appearance: No Apparent Distress Respiratory: Lungs Clear Cardiovascular: Regular Rate, Rhythm Gastrointestinal: normal bowel sounds, non tender, soft Extremity: Non Tender, No Calf Tenderness, No Pedal Edema Neurologic/Psychiatric: Alert, Oriented x3 Results Lab Laboratory Tests 11/27/17 13:06: Glucometer 188H 11/27/17 13:58: Glucometer 168H 11/27/17 14:25: Glucometer 183H 11/27/17 15:16: Glucometer 168H 11/27/17 16:28: Glucometer 112H 11/27/17 17:37: Glucometer 105 11/27/17 18:47: Glucometer 86 11/27/17 19:10: Glucometer 103 11/27/17 20:38: Glucometer 210H 11/27/17 21:18: Glucometer 183H 11/27/17 22:47: Glucometer 154H 11/27/17 23:20: Glucometer 139H 11/28/17 00:02: Glucometer 173H 11/28/17 00:58: Glucometer 160H 11/28/17 01:57: Glucometer 163H 11/28/17 03:08: Glucometer 139H 11/28/17 03:10: White Blood Count 9.3, Red Blood Count 5.30, Hemoglobin 14.8, Hematocrit 43, Mean Corpuscular Volume 81, Mean Corpuscular Hemoglobin 28, Mean Corpuscular Hemoglobin Concent 34, Red Cell Distribution Width 14.3, Platelet Count 159, Mean Platelet Volume 11.0H, Neutrophils (%) (Auto) 82H, Lymphocytes (%) (Auto) 9L, Monocytes (%) (Auto) 9, Eosinophils (%) (Auto) 0, Basophils (%) (Auto) 0, Neutrophils # (Auto) 7.6, Lymphocytes # (Auto) 0.8L, Monocytes # (Auto) 0.8, Eosinophils # (Auto) 0.0, Basophils # (Auto) 0.0, Sodium Level 131L, Potassium Level 3.7, Chloride Level 107, Carbon Dioxide Level 15L, Anion Gap 9, Blood Urea Nitrogen 15, Creatinine 1.34H, Estimat Glomerular Filtration Rate 53, BUN/ Creatinine Ratio 11, Glucose Level 166H, Calcium Level 8.9, Phosphorus Level 0.8 *L, Magnesium Level 1.4L 11/28/17 03:57: Glucometer 192H 11/28/17 04:45: Glucometer 222H 11/28/17 06:00: Glucometer 250H 11/28/17 06:49: Glucometer 262H 11/28/17 08:12: Glucometer 277H 11/28/17 09:15: Glucometer 211H 11/28/17 09:59: Glucometer 208H 11/28/17 10:30: Sodium Level 135, Potassium Level 3.7, Chloride Level 107, Carbon Dioxide Level 19L, Anion Gap 9, Blood Urea Nitrogen 13, Creatinine 1.53H, Estimat Glomerular Filtration Rate 45, BUN/Creatinine Ratio 8, Glucose Level 111H, Calcium Level 9.5, Phosphorus Level 1.6L, Magnesium Level 2.1 11/28/17 11:19: Glucometer 108 11/28/17 11:56: Glucometer 83 Microbiology 11/27/17 MRSA Screen - Final, Complete MRSA not isolated Assessment/Plan Assessment/Plan Assess & Plan/Chief Complaint 1. Acute DKA--wean off insulin drip and start levemir with high dose sliding scale and monitor BS 2. Acute Renal Failure with electrolyte abnormalities--improving 3. Hypertension--stable 4. Dysphagia/GERD/Intractable N/V--improved with protonix and scopolamine and IV antiemetics, advance to ADA diet 5. COPD--stable Clinical Quality Measures Admission Status Admission Dx 1. Acute DKA--admit to ICU on insulin drip and DKA protocol 2. Acute Renal Failure with electrolyte abnormalities--hydrate and monitor creatinine and electrolytes and will start electrolyte replacement protocols 3. COPD with History of Sarcoid--stable, CXR negative 4. Dysphagia/GERD--resume protonix and has EGD scheduled for next week but will discuss with surgery once stable about possibility of doing while inpatient 5. Hypertension--resume home meds 6. CAD--stable, resume home meds 7. Chronic Pain Syndrome with chronic narcotic use--resume home pain meds DVT/VTE Risk/Contraindication: Risk Factor Score Per Nursin RFS Level Per Nursing on Admit: 3=High ZACKARY PAULINO DO Nov 28, 2017 12:36 pm
[2017-11-28] MEDS: DIGOXIN 0.125 MG (LANOXIN) TAB PO SCH (12:44)
[2017-11-28] MEDS: inSUlin (REGULAR) HUMAN 1 UNIT/0.01 ML (CHARGE PER UNIT) SC SCH ×2 (16:23→21:52)
[2017-11-28] MEDS: FINASTERIDE (PROSCAR) 5 MG TAB PO SCH (17:23)
[2017-11-28] MEDS: RIVAROXABAN 20 MG TABLET (XARELTO) PO SCH (17:23)
[2017-11-28] MEDS ORDERED: inSUlin DETERMIR 1 UNIT/0.01 ML (LEVEMIR) CHARGE PER UNIT SQ SCH (21:00)
[2017-11-28] MEDS: TAMSULOSIN 0.4 MG (FLOMAX) CAP PO SCH (21:52)
[2017-11-28] MEDS: REGULAR inSUlin DRIP 250 UNITS/NS 250 ML IV SCH ×2 (21:53)
[2017-11-29] VITALS (19 sets, daily range): BP systolic 94–142; BP diastolic 47–71
[2017-11-29 04:18] LABS: BASOPHILS % (AUTO) 1 % (0-10); EOSINOPHILS # (AUTO) 0.1 10^3/uL (0.0-0.3); EOSINOPHILS % (AUTO) 2 % (0-10); HEMATOCRIT 37 % (40-54); HEMOGLOBIN 12.6 G/DL (13.3-17.7); LYMPHOCYTES # (AUTO) 1.3 X 10^3 (1.0-4.0); LYMPHOCYTES % (AUTO) 22 % (12-44); MEAN CORPUSCULAR HEMOGLOBIN 28 PG (25-34); MEAN CORPUSCULAR HGB CONC 34 G/DL (32-36); MEAN CORPUSCULAR VOLUME 82 FL (80-99); MEAN PLATELET VOLUME 10.9 FL (7.4-10.4); MONOCYTES # (AUTO) 0.4 X 10^3 (0.0-1.0); MONOCYTES % (AUTO) 6 % (0-12); NEUTROPHILS % (AUTO) 69 % (42-75); PLATELET COUNT 140 10^3/uL (130-400); RED BLOOD COUNT 4.54 10^6/uL (4.35-5.85); RED CELL DISTRIBUTION WIDTH 14.7 % (10.0-14.5); WHITE BLOOD COUNT 5.9 10^3/uL (4.3-11.0)
[2017-11-29 04:30] LABS: BUN/CREATININE RATIO 8; CALCIUM 8.3 MG/DL (8.5-10.1); CARBON DIOXIDE 19 MMOL/L (21-32); CHLORIDE 109 MMOL/L (98-107); CREATININE SERUM 1.08 MG/DL (0.60-1.30); GFR ESTIMATED > 60; GLUCOSE 255 MG/DL (70-105); MAGNESIUM 1.8 MG/DL (1.8-2.4); PHOSPHORUS 2.2 MG/DL (2.3-4.7); POTASSIUM 4.1 MMOL/L (3.6-5.0); SODIUM 134 MMOL/L (135-145)
[2017-11-29] MEDS: POTASSIUM CL 10MEQ/50ML IVPB 50 ML IV SCH (06:04)
[2017-11-29] MEDS: MAGNESIUM 1 GM/100 ML IVPB 100 ML IV SCH (06:05)
[2017-11-29] MEDS: KCL 20 MEQ TAB (K-DUR) PO SCH (06:05)
[2017-11-29] MEDS: inSUlin (REGULAR) HUMAN 1 UNIT/0.01 ML (CHARGE PER UNIT) SC SCH ×4 (06:08→21:30)
[2017-11-29] MEDS: oxyCODONE/APAP 10/325MG (PERCOCET 10) TABLET PO PRN ×3 (06:11→17:59)
[2017-11-29] MEDS: CATHETER FLUSH 10 ML SYR IV SCH ×3 (07:07→21:31)
--- NOTE | 2017-11-29 08:20 | Diagnostic Imaging Report ---
INDICATION: DKA. Time of exam 4:35 AM Correlation is made with prior study from one day earlier. Postop changes of median sternotomy are identified. The cardiac defibrillator remains in place. There are zones of linear atelectasis noted in both lung bases. The mid and upper lung [place] are clear. No effusion or pneumothorax is seen. IMPRESSION: Bibasilar subsegmental atelectasis, similar to the examination one day earlier. Dictated by: Dictated on workstation # [id number]
[2017-11-29] MEDS: meTOprolol TARTRATE 50 MG (LOPRESSOR) TAB PO SCH (09:34)
[2017-11-29] MEDS: ATORVASTATIN 40 MG (LIPITOR) TABLET PO SCH (09:34)
[2017-11-29] MEDS: PANTOPRAZOLE 40 MG (PROTONIX) TAB PO SCH ×2 (09:34→21:30)
[2017-11-29] MEDS: ASPIRIN 81 MG CHEW (CHILDREN'S ASA) PO SCH (09:34)
[2017-11-29] MEDS: morphine ER 30 MG (MS CONTIN) TAB PO SCH ×2 (09:34→21:30)
[2017-11-29] MEDS: D5 1/2 NS W/KCL 20 MEQ/L 1,000 ML IV SCH (09:35)
[2017-11-29] MEDS: ISOSORBIDE MONONITRATE 60 MG (IMDUR) TAB PO SCH (09:35)
[2017-11-29] MEDS: RT-ALBUTEROL/IPRATROPIUM 3 ML (DUONEB) VIAL INH SCH ×3 (09:48→20:41)
[2017-11-29] MEDS: RT-ADVAIR HFA 115/21 MCG PER PUFF IH SCH ×2 (09:49→20:41)
[2017-11-29] MEDS ORDERED: METHYLNALTREXONE 12 MG/0.6 ML (RELISTOR) VIAL SQ NR (12:00)
--- NOTE | 2017-11-29 12:00 | Progress Note (SOAP) ---
Subjective Date Seen by Provider: Nov 29, 2017 Time Seen by Provider: 11:58 Subjective/Events-last exam Fwup DKA, Acute Renal failure with electrolyte abnormalities, HTN, GERD, Dysphagia, intractable N/V. Tolerating solids with no nausea and no dysphagia. Feeling much better. Objective Exam Vital Signs Date Time Temp Pulse Resp B/P (MAP) Pulse Ox O2 Delivery O2 Flow Rate FiO2 11/29/17 10:02 84 96 11/29/17 09:51 Nasal Cannula 3.00 11/29/17 08:00 Room Air 11/29/17 08:00 97.2 86 11 109/55 (73) 100 Nasal Cannula 3.00 11/29/17 07:00 100 11/29/17 06:00 98 10 126/67 (86) 100 Nasal Cannula 3.00 11/29/17 05:00 98 25 116/64 (81) 97 Nasal Cannula 3.00 11/29/17 04:00 96 19 110/57 (74) 98 Nasal Cannula 3.00 11/29/17 04:00 Room Air 11/29/17 03:00 96 10 119/59 (79) 99 Nasal Cannula 3.00 11/29/17 02:00 98 15 100/49 (66) 96 Nasal Cannula 3.00 11/29/17 01:00 98 11/29/17 01:00 98 18 94/47 (63) 96 Nasal Cannula 3.00 11/29/17 00:24 98.1 11/29/17 00:00 Room Air 11/29/17 00:00 84 24 111/52 (71) 97 Nasal Cannula 3.00 11/28/17 23:00 94 19 94/53 (67) 98 Nasal Cannula 3.00 11/28/17 22:00 76 18 125/56 (79) 98 Nasal Cannula 3.00 11/28/17 21:00 92 20 111/52 (71) 97 Nasal Cannula 3.00 11/28/17 20:00 Room Air 11/28/17 20:00 98.4 Nasal Cannula 3.00 11/28/17 20:00 92 22 112/46 (68) 98 Nasal Cannula 3.00 11/28/17 19:06 99 Nasal Cannula 2.00 11/28/17 19:02 99 Nasal Cannula 2.00 11/28/17 19:00 85 14 116/51 (72) 100 Room Air 11/28/17 19:00 80 11/28/17 18:00 84 10 117/57 (77) 99 Room Air 11/28/17 17:00 92 10 123/65 (84) 100 Room Air 11/28/17 16:00 Room Air 11/28/17 16:00 96.9 Room Air 11/28/17 16:00 90 20 110/58 (75) 98 Room Air 11/28/17 15:00 92 15 95/58 (70) 98 Room Air 11/28/17 14:00 96 17 107/56 (73) 99 Room Air 11/28/17 13:00 98 11/28/17 13:00 99 14 107/59 (75) 95 Room Air 11/28/17 12:00 99 17 106/57 (73) 95 Room Air 11/28/17 12:00 Room Air 11/28/17 12:00 98.5 I & O 11/29/17 07:00 Intake Total 2215 ml Output Total 2275 ml Balance -60 ml Capillary Refill : Less Than 3 Seconds General Appearance: No Apparent Distress Neck: Supple Respiratory: Lungs Clear Cardiovascular: Regular Rate, Rhythm Gastrointestinal: normal bowel sounds, non tender, soft Extremity: Non Tender, No Calf Tenderness, No Pedal Edema Neurologic/Psychiatric: Alert, Oriented x3 Results Lab Laboratory Tests 11/28/17 16:06: Glucometer 201H 11/28/17 21:36: Glucometer 334H 11/29/17 04:00: White Blood Count 5.9, Red Blood Count 4.54, Hemoglobin 12.6L, Hematocrit 37L, Mean Corpuscular Volume 82, Mean Corpuscular Hemoglobin 28, Mean Corpuscular Hemoglobin Concent 34, Red Cell Distribution Width 14.7H, Platelet Count 140, Mean Platelet Volume 10.9H, Neutrophils (%) (Auto) 69, Lymphocytes (%) (Auto) 22 , Monocytes (%) (Auto) 6, Eosinophils (%) (Auto) 2, Basophils (%) (Auto) 1, Neutrophils # (Auto) 4.0, Lymphocytes # (Auto) 1.3, Monocytes # (Auto) 0.4, Eosinophils # (Auto) 0.1, Basophils # (Auto) 0.0, Sodium Level 134L, Potassium Level 4.1, Chloride Level 109H, Carbon Dioxide Level 19L, Anion Gap 6, Blood Urea Nitrogen 9, Creatinine 1.08, Estimat Glomerular Filtration Rate > 60, BUN/ Creatinine Ratio 8, Glucose Level 255H, Calcium Level 8.3L, Phosphorus Level 2.2L, Magnesium Level 1.8 11/29/17 11:44: Glucometer 240H Microbiology 11/27/17 MRSA Screen - Final, Complete MRSA not isolated Assessment/Plan Assessment/Plan Assess & Plan/Chief Complaint 1. Acute DKA--off insulin drip and on levemir but will increase dose and continue with high dose sliding scale and monitor BS, transfer to medical 2. Acute Renal Failure with electrolyte abnormalities--improving 3. Hypertension--stable 4. Dysphagia/GERD/Intractable N/V--improved with protonix and scopolamine and IV antiemetics, tolerating ADA diet 5. COPD--stable Clinical Quality Measures Admission Status Admission Dx 1. Acute DKA--admit to ICU on insulin drip and DKA protocol 2. Acute Renal Failure with electrolyte abnormalities--hydrate and monitor creatinine and electrolytes and will start electrolyte replacement protocols 3. COPD with History of Sarcoid--stable, CXR negative 4. Dysphagia/GERD--resume protonix and has EGD scheduled for next week but will discuss with surgery once stable about possibility of doing while inpatient 5. Hypertension--resume home meds 6. CAD--stable, resume home meds 7. Chronic Pain Syndrome with chronic narcotic use--resume home pain meds DVT/VTE Risk/Contraindication: Risk Factor Score Per Nursin RFS Level Per Nursing on Admit: 3=High ZACKARY PAULINO DO Nov 29, 2017 12:00
[2017-11-29] MEDS: ACETAMINOPHEN 500 MG TAB (TYLENOL) PO PRN (13:12)
[2017-11-29] MEDS: DIGOXIN 0.125 MG (LANOXIN) TAB PO SCH (13:12)
[2017-11-29] MEDS ORDERED: PANT40TA3 PO (15:35)
[2017-11-29] MEDS ORDERED: SCOP1PAT11 TOP (15:35)
--- NOTE | 2017-11-29 15:36 | Discharge Inst-Simple/Standard ---
Discharge Inst-Standard Discharge Medications New, Converted or Re-Newed RX: Transmitted to Pharmacy Patient Instructions/Follow Up Plan of Care/Instructions/FU: Fwup with me in 2 weeks Activity as Tolerated: Yes Discharge Diet: ADA Diet, Cardiac Diet ZACKARY PAULINO DO Nov 29, 2017 3:36 pm
[2017-11-29] MEDS: FINASTERIDE (PROSCAR) 5 MG TAB PO SCH (17:59)
[2017-11-29] MEDS: RIVAROXABAN 20 MG TABLET (XARELTO) PO SCH (18:00)
[2017-11-29] MEDS: TAMSULOSIN 0.4 MG (FLOMAX) CAP PO SCH (21:30)
[2017-11-29] MEDS: inSUlin DETERMIR 1 UNIT/0.01 ML (LEVEMIR) CHARGE PER UNIT SQ SCH (21:31)
[2017-11-30] VITALS: BP 130/63
[2017-11-30] MEDS: ONDANSETRON 4 MG/2 ML (SDV) Z0FRAN IV PRN ×2 (00:23→09:22)
[2017-11-30] MEDS: RT-ALBUTEROL/IPRATROPIUM 3 ML (DUONEB) VIAL INH SCH ×4 (03:01→19:48)
[2017-11-30 04:45] VITALS: BP 140/67
[2017-11-30] MEDS: ISOSORBIDE MONONITRATE 30 MG (IMDUR) TAB PO SCH (05:58)
[2017-11-30] MEDS: oxyCODONE/APAP 10/325MG (PERCOCET 10) TABLET PO PRN ×2 (05:58→11:21)
[2017-11-30] MEDS: CATHETER FLUSH 10 ML SYR IV SCH ×3 (05:58→20:57)
[2017-11-30] MEDS: inSUlin (REGULAR) HUMAN 1 UNIT/0.01 ML (CHARGE PER UNIT) SC SCH ×4 (05:59→20:56)
[2017-11-30 06:34] LABS: BASOPHILS % (AUTO) 0 % (0-10); EOSINOPHILS # (AUTO) 0.1 10^3/uL (0.0-0.3); EOSINOPHILS % (AUTO) 1 % (0-10); HEMATOCRIT 39 % (40-54); HEMOGLOBIN 13.2 G/DL (13.3-17.7); LYMPHOCYTES # (AUTO) 0.8 X 10^3 (1.0-4.0); LYMPHOCYTES % (AUTO) 12 % (12-44); MEAN CORPUSCULAR HEMOGLOBIN 28 PG (25-34); MEAN CORPUSCULAR HGB CONC 34 G/DL (32-36); MEAN CORPUSCULAR VOLUME 82 FL (80-99); MEAN PLATELET VOLUME 11.1 FL (7.4-10.4); MONOCYTES # (AUTO) 0.4 X 10^3 (0.0-1.0); MONOCYTES % (AUTO) 7 % (0-12); NEUTROPHILS # (AUTO) 5.2 X 10^3 (1.8-7.8); NEUTROPHILS % (AUTO) 80 % (42-75); PLATELET COUNT 136 10^3/uL (130-400); RED BLOOD COUNT 4.72 10^6/uL (4.35-5.85); RED CELL DISTRIBUTION WIDTH 14.4 % (10.0-14.5); WHITE BLOOD COUNT 6.5 10^3/uL (4.3-11.0)
[2017-11-30 06:57] LABS: BUN/CREATININE RATIO 9; CALCIUM 8.8 MG/DL (8.5-10.1); CARBON DIOXIDE 22 MMOL/L (21-32); CHLORIDE 103 MMOL/L (98-107); CREATININE SERUM 0.91 MG/DL (0.60-1.30); GFR ESTIMATED > 60; GLUCOSE 234 MG/DL (70-105); MAGNESIUM 1.4 MG/DL (1.8-2.4); POTASSIUM 4.4 MMOL/L (3.6-5.0); SODIUM 133 MMOL/L (135-145)
--- NOTE | 2017-11-30 07:59 | Diagnostic Imaging Report ---
Indication: Diabetic ketoacidosis. Atelectasis. Findings: Upright chest shows normal heart size and vascularity. There is bilateral discoid atelectasis. No infiltrates or effusions are seen. Impression: There has been slight improvement in the discoid atelectasis since the prior study from 11/29/2017. Dictated by: Dictated on workstation # [id number]
[2017-11-30 08:00] VITALS: BP 130/70
[2017-11-30] MEDS: ATORVASTATIN 40 MG (LIPITOR) TABLET PO SCH (09:22)
[2017-11-30] MEDS: morphine ER 30 MG (MS CONTIN) TAB PO SCH ×2 (09:22→20:57)
[2017-11-30] MEDS: PANTOPRAZOLE 40 MG (PROTONIX) TAB PO SCH ×2 (09:22→20:56)
[2017-11-30] MEDS: ASPIRIN 81 MG CHEW (CHILDREN'S ASA) PO SCH (09:22)
[2017-11-30] MEDS: meTOprolol TARTRATE 50 MG (LOPRESSOR) TAB PO SCH (09:22)
[2017-11-30] MEDS: RT-ADVAIR HFA 115/21 MCG PER PUFF IH SCH ×2 (09:43→19:48)
[2017-11-30 12:00] VITALS: BP 124/61
[2017-11-30] MEDS: DIGOXIN 0.125 MG (LANOXIN) TAB PO SCH (12:03)
[2017-11-30] MEDS ORDERED: KETOROLAC 30 MG/ML VIAL IVP NR (13:15)
--- NOTE | 2017-11-30 13:28 | Progress Note-Standard ---
Standard Progress Note Progress Notes/Assess & Plan Date Seen 11/30/17 Time Seen by Provider: 10:30 Assess & Plan/Chief Complaint Patient complains of headache Feels too tired to cut his insulin pump on his can't do it for him Patient refuses to go home feeling like this Reviewed labs and glucometer checks her reasonable Will support patient and give Toradol to help with the headache pain and will likely need to hold discharge until tomorrow when he feels like picking up his insulin pump Very difficult social situation it appears the patient was incontinent in his jeans refuses to change out of them per the nurse Checked meds and labs Vitals remained stable Chronically ill, cooperative, semi-pleasant Regular rate and rhythm, clear to auscultation bilaterally No edema Laboratory Tests 11/30/17 05:50 Assessment: Status post DKA severe Profound dehydration Hyponatremia Poor social situation Noncompliance hx Acute Renal Failure COPD with History of Sarcoid Dysphagia/GERD Hypertension CAD Chronic Pain Syndrome with chronic narcotic use Plan: Difficult situation considering his headache is precluding him from discharging as planned and has a history of chronic pain issues narcotic dependent Check labs in a.m. 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
[2017-11-30 15:55] VITALS: BP 119/73
[2017-11-30] MEDS: FINASTERIDE (PROSCAR) 5 MG TAB PO SCH (17:22)
[2017-11-30] MEDS: RIVAROXABAN 20 MG TABLET (XARELTO) PO SCH (17:22)
[2017-11-30] MEDS: SCOPOLAMINE 1.5 MG (TRANSDERM-SCOP) PATCH TOP SCH (17:23)
[2017-11-30] MEDS ORDERED: KETOROLAC 30 MG/ML VIAL IVP PRN (19:00)
[2017-11-30 20:25] VITALS: BP 129/73
[2017-11-30] MEDS: TAMSULOSIN 0.4 MG (FLOMAX) CAP PO SCH (20:56)
[2017-11-30] MEDS: inSUlin DETERMIR 1 UNIT/0.01 ML (LEVEMIR) CHARGE PER UNIT SQ SCH (20:57)
[2017-12-01] VITALS: BP 138/64
[2017-12-01] MEDS: RT-ALBUTEROL/IPRATROPIUM 3 ML (DUONEB) VIAL INH SCH ×4 (01:39→19:36)
[2017-12-01 04:00] VITALS: BP 136/69
[2017-12-01] MEDS: ISOSORBIDE MONONITRATE 30 MG (IMDUR) TAB PO SCH (06:32)
[2017-12-01 06:35] LABS: BASOPHILS % (AUTO) 0 % (0-10); EOSINOPHILS # (AUTO) 0.1 10^3/uL (0.0-0.3); EOSINOPHILS % (AUTO) 3 % (0-10); HEMATOCRIT 40 % (40-54); HEMOGLOBIN 13.6 G/DL (13.3-17.7); LYMPHOCYTES # (AUTO) 1.1 X 10^3 (1.0-4.0); LYMPHOCYTES % (AUTO) 24 % (12-44); MEAN CORPUSCULAR HEMOGLOBIN 28 PG (25-34); MEAN CORPUSCULAR HGB CONC 34 G/DL (32-36); MEAN CORPUSCULAR VOLUME 82 FL (80-99); MEAN PLATELET VOLUME 10.8 FL (7.4-10.4); MONOCYTES # (AUTO) 0.5 X 10^3 (0.0-1.0); MONOCYTES % (AUTO) 10 % (0-12); NEUTROPHILS # (AUTO) 2.8 X 10^3 (1.8-7.8); NEUTROPHILS % (AUTO) 62 % (42-75); PLATELET COUNT 130 10^3/uL (130-400); RED BLOOD COUNT 4.87 10^6/uL (4.35-5.85); RED CELL DISTRIBUTION WIDTH 14.3 % (10.0-14.5); WHITE BLOOD COUNT 4.5 10^3/uL (4.3-11.0)
[2017-12-01] MEDS: inSUlin (REGULAR) HUMAN 1 UNIT/0.01 ML (CHARGE PER UNIT) SC SCH ×4 (06:36→20:38)
[2017-12-01] MEDS: CATHETER FLUSH 10 ML SYR IV SCH ×3 (06:38→20:38)
[2017-12-01 06:55] LABS: BUN/CREATININE RATIO 11; CALCIUM 8.7 MG/DL (8.5-10.1); CARBON DIOXIDE 23 MMOL/L (21-32); CHLORIDE 102 MMOL/L (98-107); GFR ESTIMATED > 60; GLUCOSE 203 MG/DL (70-105); MAGNESIUM 1.3 MG/DL (1.8-2.4); PHOSPHORUS 2.9 MG/DL (2.3-4.7); SODIUM 134 MMOL/L (135-145)
[2017-12-01] MEDS: RT-ADVAIR HFA 115/21 MCG PER PUFF IH SCH ×2 (07:41→19:36)
[2017-12-01 08:00] VITALS: BP 150/67
[2017-12-01] MEDS: PANTOPRAZOLE 40 MG (PROTONIX) TAB PO SCH ×2 (08:51→20:37)
[2017-12-01] MEDS: ATORVASTATIN 40 MG (LIPITOR) TABLET PO SCH (08:51)
[2017-12-01] MEDS: meTOprolol TARTRATE 50 MG (LOPRESSOR) TAB PO SCH (08:51)
[2017-12-01] MEDS: ASPIRIN 81 MG CHEW (CHILDREN'S ASA) PO SCH (08:52)
[2017-12-01] MEDS: morphine ER 30 MG (MS CONTIN) TAB PO SCH ×2 (08:52→20:37)
--- NOTE | 2017-12-01 09:27 | Diagnostic Imaging Report ---
INDICATION: DKA EXAMINATION: Chest 12/01/2017 COMPARISON: 11/30/2017 FINDINGS: The heart is prominent but stable. Pulmonary vasculature unremarkable. Infiltrate left lung base is noted. There is a small left effusion. Remaining lungs clear. Left-sided pacemaker and sternotomy wires unchanged. IMPRESSION: 1. Developing infiltrate and likely effusion left lung base. Remaining chest is fairly stable. Dictated by: Dictated on workstation # [id number]
[2017-12-01 13:00] VITALS: BP 146/58
--- NOTE | 2017-12-01 13:19 | Progress Note-Standard ---
Standard Progress Note Progress Notes/Assess & Plan Date Seen 12/01/17 Time Seen by Provider: 12:00 Assess & Plan/Chief Complaint Headache resolved after Toradol given Patient having difficulty with motivation states Patient is not eating well enough to be up to go home Very difficult situation patient may need PEG tube or detention placement Very difficult to motivate the patient today Cannot get his insulin pump to work Chronically ill, cooperative, semi-pleasant Regular rate and rhythm, clear to auscultation bilaterally No edema Laboratory Tests 12/01/17 06:12 Assessment: Status post DKA severe Profound dehydration Hyponatremia Poor social situation Noncompliance hx Acute Renal Failure COPD with History of Sarcoid Dysphagia/GERD Hypertension CAD Chronic Pain Syndrome with chronic narcotic use Poor motivation to get out of bed and eat Plan: Difficult situation considering his ability to eat is precluding him from discharging as planned and yesterday his headache delayed DC and has a history of chronic pain issues narcotic dependent Check labs in a.m. 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
[2017-12-01] MEDS ORDERED: NS IV 1000 ML 1,000 ML IV ONE (13:30)
[2017-12-01 16:50] VITALS: BP 106/58
[2017-12-01] MEDS: RIVAROXABAN 20 MG TABLET (XARELTO) PO SCH (17:08)
[2017-12-01] MEDS: FINASTERIDE (PROSCAR) 5 MG TAB PO SCH (17:08)
[2017-12-01 20:00] VITALS: BP 124/75
[2017-12-01] MEDS: TAMSULOSIN 0.4 MG (FLOMAX) CAP PO SCH (20:37)
[2017-12-01] MEDS: inSUlin DETERMIR 1 UNIT/0.01 ML (LEVEMIR) CHARGE PER UNIT SQ SCH (20:38)
[2017-12-02] VITALS: BP 130/69
[2017-12-02] MEDS: RT-ALBUTEROL/IPRATROPIUM 3 ML (DUONEB) VIAL INH SCH ×4 (01:28→20:02)
[2017-12-02 03:15] LABS: BASOPHILS % (AUTO) 1 % (0-10); EOSINOPHILS # (AUTO) 0.2 10^3/uL (0.0-0.3); EOSINOPHILS % (AUTO) 3 % (0-10); HEMATOCRIT 38 % (40-54); HEMOGLOBIN 12.8 G/DL (13.3-17.7); LYMPHOCYTES # (AUTO) 1.4 X 10^3 (1.0-4.0); LYMPHOCYTES % (AUTO) 28 % (12-44); MEAN CORPUSCULAR HEMOGLOBIN 28 PG (25-34); MEAN CORPUSCULAR HGB CONC 34 G/DL (32-36); MEAN CORPUSCULAR VOLUME 83 FL (80-99); MEAN PLATELET VOLUME 10.9 FL (7.4-10.4); MONOCYTES # (AUTO) 0.6 X 10^3 (0.0-1.0); MONOCYTES % (AUTO) 13 % (0-12); NEUTROPHILS # (AUTO) 2.7 X 10^3 (1.8-7.8); NEUTROPHILS % (AUTO) 55 % (42-75); PLATELET COUNT 144 10^3/uL (130-400); RED BLOOD COUNT 4.57 10^6/uL (4.35-5.85); RED CELL DISTRIBUTION WIDTH 14.3 % (10.0-14.5); WHITE BLOOD COUNT 4.9 10^3/uL (4.3-11.0)
[2017-12-02 03:37] LABS: BUN/CREATININE RATIO 12; CALCIUM 8.5 MG/DL (8.5-10.1); CARBON DIOXIDE 25 MMOL/L (21-32); CHLORIDE 102 MMOL/L (98-107); CREATININE SERUM 0.85 MG/DL (0.60-1.30); GFR ESTIMATED > 60; GLUCOSE 136 MG/DL (70-105); MAGNESIUM 1.4 MG/DL (1.8-2.4); POTASSIUM 3.6 MMOL/L (3.6-5.0); SODIUM 135 MMOL/L (135-145)
[2017-12-02 04:00] VITALS: BP 137/62
[2017-12-02] MEDS: inSUlin (REGULAR) HUMAN 1 UNIT/0.01 ML (CHARGE PER UNIT) SC SCH ×5 (05:05→22:32)
[2017-12-02] MEDS: CATHETER FLUSH 10 ML SYR IV SCH ×3 (05:41→21:28)
[2017-12-02] MEDS: ISOSORBIDE MONONITRATE 30 MG (IMDUR) TAB PO SCH (05:41)
[2017-12-02 08:00] VITALS: BP 133/67
[2017-12-02] MEDS: RT-ADVAIR HFA 115/21 MCG PER PUFF IH SCH ×2 (08:42→20:03)
[2017-12-02] MEDS: ASPIRIN 81 MG CHEW (CHILDREN'S ASA) PO SCH (09:06)
[2017-12-02] MEDS: morphine ER 30 MG (MS CONTIN) TAB PO SCH ×2 (09:06→20:44)
[2017-12-02] MEDS: meTOprolol TARTRATE 50 MG (LOPRESSOR) TAB PO SCH (09:06)
[2017-12-02] MEDS: ATORVASTATIN 40 MG (LIPITOR) TABLET PO SCH (09:06)
[2017-12-02] MEDS: ACETAMINOPHEN 500 MG TAB (TYLENOL) PO PRN (09:06)
[2017-12-02] MEDS: PANTOPRAZOLE 40 MG (PROTONIX) TAB PO SCH ×2 (09:06→20:44)
[2017-12-02 12:00] VITALS: BP 134/64
[2017-12-02] MEDS: DIGOXIN 0.125 MG (LANOXIN) TAB PO SCH (12:26)
--- NOTE | 2017-12-02 13:10 | Diagnostic Imaging Report ---
PROCEDURE: CT head without contrast. TECHNIQUE: Multiple contiguous axial images were obtained through the brain without the use of intravenous contrast. INDICATION: Confusion and weakness. COMPARISON: No prior studies are available for comparison. FINDINGS: Ventricles and sulci are prominent consistent with cerebral atrophy. Moderate periventricular hypodensity is noted consistent with chronic microvascular ischemia. There is an area of low density in the right posterior parietal lobe which is fairly well defined and is most consistent with an infarct which is at least subacute to chronic. There is no midline shift. No acute intra-axial or extra-axial hemorrhage is seen. The cisterns are patent. The visualized paranasal sinuses are clear. 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 MRI may be useful for further evaluation. No acute intracranial hemorrhage is detected. Dictated by: Dictated on workstation # [id number]
[2017-12-02 15:35] VITALS: BP 108/55
[2017-12-02] MEDS: FINASTERIDE (PROSCAR) 5 MG TAB PO SCH (16:32)
[2017-12-02] MEDS: RIVAROXABAN 20 MG TABLET (XARELTO) PO SCH (16:32)
--- NOTE | 2017-12-02 18:47 | Progress Note (SOAP) ---
Subjective Date Seen by Provider: Dec 02, 2017 Time Seen by Provider: 12:45 Subjective/Events-last exam Fwup DKA, Acute Renal failure with electrolyte abnormalities, HTN, GERD, Dysphagia, intractable N/V. Patient did not go home this weekend due to not eating well and depressed mood. C/O confusion and weakness and still no appetite. Objective Exam Vital Signs Date Time Temp Pulse Resp B/P (MAP) Pulse Ox O2 Delivery O2 Flow Rate FiO2 12/02/17 15:35 97.3 79 16 108/55 (72) 96 Nasal Cannula 3.00 12/02/17 15:28 94 Room Air 12/02/17 12:00 99.5 78 18 134/64 (87) 91 Nasal Cannula 3.00 12/02/17 09:00 Room Air 12/02/17 08:39 93 Room Air 12/02/17 08:00 97.6 84 18 133/67 (89) 93 Nasal Cannula 3.00 12/02/17 04:00 99.9 74 18 137/62 (87) 94 Room Air 12/02/17 01:28 93 Room Air 12/02/17 00:00 99.0 82 18 130/69 (89) 92 Room Air 12/01/17 21:00 Room Air 12/01/17 20:00 97.3 94 20 124/75 (91) 96 Room Air 12/01/17 19:43 Room Air 12/01/17 19:37 97 Room Air I & O 12/02/17 07:00 Intake Total 600 ml Balance 600 ml Capillary Refill : Less Than 3 Seconds General Appearance: No Apparent Distress Neck: Supple Respiratory: Lungs Clear Cardiovascular: Regular Rate, Rhythm Gastrointestinal: non tender, soft Extremity: Non Tender, No Calf Tenderness, No Pedal Edema Neurologic/Psychiatric: Alert, Oriented x3 Results Lab Laboratory Tests 12/01/17 20:17: Glucometer 237H 12/02/17 03:00: White Blood Count 4.9, Red Blood Count 4.57, Hemoglobin 12.8L, Hematocrit 38L, Mean Corpuscular Volume 83, Mean Corpuscular Hemoglobin 28, Mean Corpuscular Hemoglobin Concent 34, Red Cell Distribution Width 14.3, Platelet Count 144, Mean Platelet Volume 10.9H, Neutrophils (%) (Auto) 55, Lymphocytes (%) (Auto) 28 , Monocytes (%) (Auto) 13H, Eosinophils (%) (Auto) 3, Basophils (%) (Auto) 1, Neutrophils # (Auto) 2.7, Lymphocytes # (Auto) 1.4, Monocytes # (Auto) 0.6, Eosinophils # (Auto) 0.2, Basophils # (Auto) 0.0, Sodium Level 135, Potassium Level 3.6, Chloride Level 102, Carbon Dioxide Level 25, Anion Gap 8, Blood Urea Nitrogen 10, Creatinine 0.85, Estimat Glomerular Filtration Rate > 60, BUN/ Creatinine Ratio 12, Glucose Level 136H, Calcium Level 8.5, Phosphorus Level 3.0 , Magnesium Level 1.4L 12/02/17 06:19: Glucometer 110 12/02/17 11:16: Glucometer 206H 12/02/17 16:00: Glucometer 158H Microbiology 11/27/17 MRSA Screen - Final, Complete MRSA not isolated Assessment/Plan Assessment/Plan Assess & Plan/Chief Complaint 1. Acute DKA--continue levemir but will increase dose and with high dose sliding scale and monitor BS, diabetes education 2. Acute Renal Failure with electrolyte abnormalities--resolved 3. Hypertension--stable 4. Dysphagia/GERD/Intractable N/V--improved with protonix and scopolamine and IV antiemetics, poor appetite, will proceed with EGD while inpatient 5. COPD--stable 6. Confusion/Weakness--check CT of head Clinical Quality Measures Admission Status Admission Dx 1. Acute DKA--admit to ICU on insulin drip and DKA protocol 2. Acute Renal Failure with electrolyte abnormalities--hydrate and monitor creatinine and electrolytes and will start electrolyte replacement protocols 3. COPD with History of Sarcoid--stable, CXR negative 4. Dysphagia/GERD--resume protonix and has EGD scheduled for next week but will discuss with surgery once stable about possibility of doing while inpatient 5. Hypertension--resume home meds 6. CAD--stable, resume home meds 7. Chronic Pain Syndrome with chronic narcotic use--resume home pain meds DVT/VTE Risk/Contraindication: Risk Factor Score Per Nursin RFS Level Per Nursing on Admit: 3=High ZACKARY PAULINO DO Dec 02, 2017 6:47 pm
[2017-12-02 19:30] VITALS: BP 132/63
[2017-12-02] MEDS: TAMSULOSIN 0.4 MG (FLOMAX) CAP PO SCH (20:44)
[2017-12-02] MEDS: inSUlin DETERMIR 1 UNIT/0.01 ML (LEVEMIR) CHARGE PER UNIT SQ SCH (21:28)
[2017-12-02] MEDS: oxyCODONE/APAP 10/325MG (PERCOCET 10) TABLET PO PRN (22:32)
--- NOTE | 2017-12-02 22:42 | CONSULTATION REPORT ---
DATE OF SERVICE: 12/02/2017 ATTENDING PRIMARY CARE PHYSICIAN: Dolores Petty DO. HISTORY OF PRESENT ILLNESS: The patient is a 67-year-old male, who presented approximately one week ago for weakness, dyspnea, nausea as well as dysphagia. He has a history of insulin-dependent diabetes for the past 15 to 20 years. This gentleman was seen in the office and had reported issues with dysphagia for the past several years. He reports dysphagia as a difficulty swallowing and when he would try to take in a food bolus and difficulty in propelling down into the esophagus. He did not report any specific symptoms of chest pressure, discomfort as well as no reflux or regurgitation. He also was scheduled for a colonoscopy for he has not had a colonoscopy up to this point in his life. Upon this admission, he was found to be in diabetic ketoacidosis and has been treated for this. From this standpoint, he has improved; however, he continues to have issues with this difficulty in swallowing. Upon further questioning, he reports that he has had this issue for some amount of time and did undergo an EGD approximately in 2009, where he was told that he had improper movements of the epiglottis, which may indicate a form of a neurologic dysphagia, which may be related to his diabetes. Again, he does not report any substernal chest pressure, sensation or reflux nor regurgitation. PAST MEDICAL HISTORY: Insulin-dependent diabetes, hypertension, hypercholesterolemia, coronary artery disease, BPH, degenerative joint disease, history of myocardial infarction, atrial fibrillation and depression. Sarcoidosis. PAST SURGICAL HISTORY: Coronary artery bypass grafting times two vessels. Appendectomy, defibrillator and pacemaker implantation, left thoracotomy and biopsy. Right ulnar nerve transposition, right shoulder surgery. ALLERGIES: No known drug allergies. MEDICATIONS: Aspirin 81 mg daily, atorvastatin 40 mg daily, citalopram 20 mg daily, digoxin 125 mcg daily, finasteride 5 mg daily, fluticasone 1 puff daily, insulin per insulin pump. Isosorbide mononitrate 60 mg daily, metoprolol 75 mg daily, morphine 30 mg b.i.d., oxycodone p.r.n., Protonix 40 mg daily, Xarelto 20 mg daily and tamsulosin 0.4 mg daily. SOCIAL HISTORY: Previous smoker, quit in 2000, 40 pack years. Negative alcohol. FAMILY HISTORY: Sister diabetes. REVIEW OF SYSTEMS: A well-nourished male currently in no acute distress. He is not experiencing any shortness of breath or difficulty breathing. No chest pain, palpitations or diaphoresis. Intermittent episodes of difficulty in swallowing. He reports that he can chew; however, when he tries to propel food bolus down into the esophagus, he has difficulty at this point. He does not report any substernal chest pressure, sensation or tightness as well as no reflux or regurgitation. He does not report any red blood per rectum nor any dark tarry stools. No fevers, chills, no recent with some weight loss in the past several months. All other review of systems are negative. PHYSICAL EXAMINATION: VITAL SIGNS: Temperature 97.8, blood pressure 132/63, pulse 83, respirations 18 and pulse ox 95% on room air. CHEST: A few scattered rales and rhonchi bilaterally. HEART: Regular, no murmurs. EXTREMITIES: No lower extremity edema and negative Homans sign. HEENT: No scleral icterus. NECK: No cervical lymphadenopathy. ABDOMEN: Soft, nontender, nondistended. SKIN: Warm and dry. 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 We will confirm this first by a consulting speech pathology for a barium or contrast swallow study evaluating the upper gastrointestinal tract as well as the oropharyngeal region. If there are anatomic abnormalities detected here and an esophageal etiology is noted, we will then proceed with an EGD as well as possible dilatation. Job ID: [id number] DocumentID: [id number] Dictated Date: 12/02/2017 22:08:45 Conservation Of [employer] Commissioner Date: 12/02/2017 22:41:15 Dictated By: ASHA OLVERA MD [facility]
[2017-12-03] VITALS: BP 116/58
[2017-12-03] MEDS: RT-ALBUTEROL/IPRATROPIUM 3 ML (DUONEB) VIAL INH SCH ×3 (02:34→19:22)
[2017-12-03 03:20] LABS: BASOPHILS % (AUTO) 1 % (0-10); EOSINOPHILS # (AUTO) 0.1 10^3/uL (0.0-0.3); EOSINOPHILS % (AUTO) 3 % (0-10); HEMATOCRIT 38 % (40-54); HEMOGLOBIN 12.9 G/DL (13.3-17.7); LYMPHOCYTES # (AUTO) 1.6 X 10^3 (1.0-4.0); LYMPHOCYTES % (AUTO) 31 % (12-44); MEAN CORPUSCULAR HEMOGLOBIN 28 PG (25-34); MEAN CORPUSCULAR HGB CONC 34 G/DL (32-36); MEAN CORPUSCULAR VOLUME 83 FL (80-99); MEAN PLATELET VOLUME 10.5 FL (7.4-10.4); MONOCYTES # (AUTO) 0.8 X 10^3 (0.0-1.0); MONOCYTES % (AUTO) 15 % (0-12); NEUTROPHILS # (AUTO) 2.6 X 10^3 (1.8-7.8); NEUTROPHILS % (AUTO) 51 % (42-75); PLATELET COUNT 164 10^3/uL (130-400); RED BLOOD COUNT 4.57 10^6/uL (4.35-5.85); RED CELL DISTRIBUTION WIDTH 14.2 % (10.0-14.5); WHITE BLOOD COUNT 5.1 10^3/uL (4.3-11.0)
[2017-12-03 03:39] LABS: BUN/CREATININE RATIO 12; CALCIUM 8.5 MG/DL (8.5-10.1); CARBON DIOXIDE 25 MMOL/L (21-32); CHLORIDE 101 MMOL/L (98-107); CREATININE SERUM 0.84 MG/DL (0.60-1.30); GFR ESTIMATED > 60; GLUCOSE 155 MG/DL (70-105); MAGNESIUM 1.3 MG/DL (1.8-2.4); PHOSPHORUS 3.4 MG/DL (2.3-4.7); POTASSIUM 3.5 MMOL/L (3.6-5.0); SODIUM 135 MMOL/L (135-145)
[2017-12-03] MEDS: inSUlin (REGULAR) HUMAN 1 UNIT/0.01 ML (CHARGE PER UNIT) SC SCH ×4 (05:43→21:18)
[2017-12-03] MEDS: ISOSORBIDE MONONITRATE 30 MG (IMDUR) TAB PO SCH (06:11)
[2017-12-03] MEDS: CATHETER FLUSH 10 ML SYR IV SCH ×3 (06:11→21:17)
[2017-12-03 08:00] VITALS: BP 126/61
[2017-12-03] MEDS: ATORVASTATIN 40 MG (LIPITOR) TABLET PO SCH (09:46)
[2017-12-03] MEDS: morphine ER 30 MG (MS CONTIN) TAB PO SCH ×2 (09:46→21:15)
[2017-12-03] MEDS: ASPIRIN 81 MG CHEW (CHILDREN'S ASA) PO SCH (09:46)
[2017-12-03] MEDS: meTOprolol TARTRATE 50 MG (LOPRESSOR) TAB PO SCH (09:46)
[2017-12-03] MEDS: PANTOPRAZOLE 40 MG (PROTONIX) TAB PO SCH ×2 (09:46→21:15)
[2017-12-03] MEDS: RT-ADVAIR HFA 115/21 MCG PER PUFF IH SCH ×2 (09:52→19:22)
[2017-12-03 10:17] VITALS: BP 116/58
[2017-12-03] MEDS: ACETAMINOPHEN 500 MG TAB (TYLENOL) PO PRN ×2 (10:20→18:13)
[2017-12-03] MEDS ORDERED: RT-ALBUTEROL/IPRATROPIUM 3 ML (DUONEB) VIAL INH PRN (10:30)
--- NOTE | 2017-12-03 13:00 | ST Mod Barium Swallow ---
Speech Evaluation-General Medical Diagnosis Acute DKA, Acute Renal Failure Onset Date: Nov 26, 2017 Therapy Diagnosis Therapy Diagnosis: Oropharyngeal Swallow WNL Precautions Precautions/Isolations: Fall Prevention Referral Referring Physician: Dr. Pabon Reason for Referral: Evaluation/Treatment Modified Barium Swallow Evaluation Medical History Pertinent Medical History: Atrial Fib, CABG, CAD, COPD, DM, GERD, HTN Dysphagia, TIA Current History The patient was recently admitted to [facility] with a diagnosis of acute DKA and acute renal failure. The patient has a past history of dysphagia and stated he is currently unable to eat due to a consistent globus sensation which he localized to the mid-chest region. The patient's accounts are somewhat conflicting as he stated he recently consumed egg salad, crackers, and grapes the day prior without difficulty. Per patient, "I just wash them down with some water." Reviewed History: Yes Speech Mod Barium Swallow Prior Level of Function The patient stated he is having a difficult time consuming all consistencies, especially dry solids. Per patient, he experiences a globus sensation at the mid -chest region which he is able to clear with a liquid wash. The patient denied any signs/symptoms of aspiration or laryngeal penetration. Additionally, the patient denied any recent diagnosis of pneumonia. CXR: 12/01/17: Developing infiltrate and likely effusion left lower base. The patient is currently consuming a regular diet with thin liquids. The modified barium swallow was requested prior to an EGD to rule out any oropharyngeal etiology of dysphagia. Oral Motor Skills Dentition Natural Dentures: Full (The patient does not report having dentures present. The patient is edentulous and stated he often consumes meals without dentures in place.) Lingual Protrusion: Normal Lingual ROM: Normal Lingual Strength: Normal Velum: Normal Volitional Dry Swallow: Yes Textures-Lateral View Lateral View Food Presentation: Thin Liquid via Straw, Pureed Solids, Regular Solids Oral Phase Labial Closure: No Impairment (WFL) Bolus Formation Pooling L/R: No Impairment (WFL) Bolus Formation Placement: No Impairment (WFL) Mastication Rotary Chew: No Impairment (WFL) A/P Lingual Propulsion: No Impairment (WFL) Lingual Movement: No Impairment (WFL) Oral Phase Residue: No Impairment (WFL) Pharyngeal Phase Swallow Response: No Impairment (WFL) Base of Tongue: Minimal Impairment Epiglottic Movement: No Impairment (WFL) (Timely, complete (inversion and tilt) .) Laryngeal Elevation: No Impairment (WFL) Vallecular Residue: Mild (Minimal. The patient was able to clear the vallecular residue with a spontaneous dry swallow, as well as, a liquid wash.) Pharyngeal Wall Residue: No Impairment (WFL) Piriform Sinus Residue: Mild (Minimal. The patient was able to clear the vallecular and pyriform sinus residue with a spontaneous dry swallow, as well as , a liquid wash.) Laryngeal Penetration: None Aspiration Observations: None Other Pharyngeal Observations: No aspiration or laryngeal penetration was noted with any consistency tested. The patient triggered a timely pharyngeal swallow at the angle of the ramus and base of tongue. Minimally reduced base of tongue retraction resulted in mild vallecular residue. Vallecular residue was cleared with a spontaneous, subsequent dry swallow and liquid wash. Performed-A/P View Not Applicable/Performed Summary/Impressions Oral Phase Impression: No Impairment (WFL) The patient demonstrated an oropharyngeal swallow function grossly within normal limits. Minimally reduced base of tongue retraction was visualized which resulted in mild vallecular residue. The patient cleared all vallecular residue with a spontaneous, subsequent dry swallow. No aspiration, laryngeal penetration, or retrograde flow from the esophageal region was noted throughout the evaluation. Recommendations: - Regular diet with thin liquids, as tolerated. - Kevin, moist consistencies to aid in esophageal clearance, as necessary. - Alternate solid and liquid consistencies on a 1:1 ratio. - Small, single bites and sips. - Follow up with GI physician, as directed. Speech-Plan Treatment Plan Speech Therapy Treatment Plan: Discontinue ST Evaluation, only. Frequency: 1 time per month Estimated Hrs Per Day: Other Rehab Potential: Good Safety Risks/Education Teaching Recipient: Patient Teaching Methods: Discussion Response to Teaching: Verbalize Understanding Education Topics Provided: Results, Recommendations, Plan of Care Time Speech Therapy Time In: 12:25 Speech Therapy Time Out: 12:45 Total Billed Time: 20 Billed Treatment Time LUIS Arevalo ELIZABETH Dec 03, 2017 12:59
[2017-12-03] MEDS: DIGOXIN 0.125 MG (LANOXIN) TAB PO SCH (13:10)
--- NOTE | 2017-12-03 13:22 | Diagnostic Imaging Report ---
INDICATION: Dysphagia. TECHNIQUE: The study was performed in conjunction with Speech Pathology. Videofluoroscopy was performed during the swallowing of barium in multiple consistencies. A total of 59 seconds of fluoroscopy time was utilized. FINDINGS: The patient ingested thin as well as pudding and cracker consistencies. The oral phase is unremarkable. There is normal epiglottic tilt and laryngeal elevation. No penetration or aspiration was observed. IMPRESSION: Unremarkable modified barium swallow. Dictated by: Dictated on workstation # [id number]
--- NOTE | 2017-12-03 14:40 | Progress Note (SOAP) ---
Subjective Date Seen by Provider: Dec 03, 2017 Time Seen by Provider: 14:00 Subjective/Events-last exam doing ok. normal swallow eval with no risk aspiration. still has mild dysphagia. Objective Exam Vital Signs Date Time Temp Pulse Resp B/P (MAP) Pulse Ox O2 Delivery O2 Flow Rate FiO2 12/03/17 10:17 79 94 12/03/17 09:53 94 Room Air 12/03/17 09:00 Room Air 12/03/17 08:00 99.1 83 18 126/61 (82) 94 Room Air 12/03/17 02:36 94 Room Air 12/03/17 00:00 98.3 78 18 116/58 (77) 94 Room Air 12/02/17 20:04 95 Room Air 12/02/17 19:30 97.8 83 18 132/63 (86) 92 Nasal Cannula 3.00 12/02/17 15:35 97.3 79 16 108/55 (72) 96 Nasal Cannula 3.00 12/02/17 15:28 94 Room Air I & O 12/03/17 07:00 Intake Total 1260 ml Balance 1260 ml Capillary Refill : Less Than 3 Seconds General Appearance: No Apparent Distress HEENT: PERRL/EOMI Neck: Full Range of Motion Respiratory: Chest Non Tender, Lungs Clear Cardiovascular: Regular Rate, Rhythm Gastrointestinal: normal bowel sounds, non tender, soft Extremity: Normal Capillary Refill Neurologic/Psychiatric: Alert, Oriented x3 Skin: Normal Color Lymphatic: No Adenopathy Results Lab Laboratory Tests 12/02/17 16:00: Glucometer 158H 12/02/17 20:16: Glucometer 192H 12/03/17 03:05: White Blood Count 5.1, Red Blood Count 4.57, Hemoglobin 12.9L, Hematocrit 38L, Mean Corpuscular Volume 83, Mean Corpuscular Hemoglobin 28, Mean Corpuscular Hemoglobin Concent 34, Red Cell Distribution Width 14.2, Platelet Count 164, Mean Platelet Volume 10.5H, Neutrophils (%) (Auto) 51, Lymphocytes (%) (Auto) 31 , Monocytes (%) (Auto) 15H, Eosinophils (%) (Auto) 3, Basophils (%) (Auto) 1, Neutrophils # (Auto) 2.6, Lymphocytes # (Auto) 1.6, Monocytes # (Auto) 0.8, Eosinophils # (Auto) 0.1, Basophils # (Auto) 0.0, Sodium Level 135, Potassium Level 3.5L, Chloride Level 101, Carbon Dioxide Level 25, Anion Gap 9, Blood Urea Nitrogen 10, Creatinine 0.84, Estimat Glomerular Filtration Rate > 60, BUN/ Creatinine Ratio 12, Glucose Level 155H, Calcium Level 8.5, Phosphorus Level 3.4 , Magnesium Level 1.3L 12/03/17 05:39: Glucometer 131H 12/03/17 11:12: Glucometer 123H Microbiology 11/27/17 MRSA Screen - Final, Complete MRSA not isolated Assessment/Plan Assessment/Plan Assess & Plan/Chief Complaint dysphagia. normal swallow eval. will proceed with EGD with possible dilatation for tomorrow. hold rivaroxaban. Clinical Quality Measures DVT/VTE Risk/Contraindication: Risk Factor Score Per Nursin RFS Level Per Nursing on Admit: 3=High ASHA OLVERA MD Dec 03, 2017 2:40 pm
[2017-12-03 16:15] VITALS: BP 121/56
[2017-12-03] MEDS: FINASTERIDE (PROSCAR) 5 MG TAB PO SCH (16:52)
[2017-12-03] MEDS: SCOPOLAMINE 1.5 MG (TRANSDERM-SCOP) PATCH TOP SCH (17:28)
--- NOTE | 2017-12-03 18:18 | Progress Note ---
Subjective Date Seen by Provider: Dec 03, 2017 Time Seen by Provider: 19:50 Subjective/Events-last exam PT IS A 67 Y/O MALE WHO IS A PATIENT OF DR. 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 HE STATES THAT HE IS FEELING FATIGUED, HIS FAMILY NOTES THAT HE HAS TOLD THEM THAT HE HAD A STROKE, AND THEY WERE WONDERING ABOUT HIS CT SCAN REPORT. Review of Systems General: No Chills, Fatigue HEENT: Head Aches (ABOVE RIGHT EYE), Dysphasia Pulmonary: No Dyspnea Cardiovascular: No: Chest Pain Gastrointestinal: No: Nausea, Abdominal Pain Neurological: Weakness, Confusion (INTERMITTENT) Objective Exam Last Set of Vital Signs Vital Signs Date Time Temp Pulse Resp B/P (MAP) Pulse Ox O2 Delivery O2 Flow Rate FiO2 12/03/17 16:15 98.3 82 18 121/56 (77) 95 Room Air 12/02/17 19:30 3.00 Capillary Refill : Less Than 3 Seconds I&O Intake and Output 12/03/17 00:00 Intake Total 1160 ml Balance 1160 ml Intake Oral 1160 ml # Voids 10 General: Alert, No Acute Distress HEENT: Atraumatic, PERRLA Neck: Supple Lungs: Clear to Auscultation Heart: Regular Rate Abdomen: Normal Bowel Sounds, Soft Extremities: Other (WEAKNESS OF LEFT ARM/LEG) Psych/Mental Status: Mental Status NL, Mood NL Results Lab Laboratory Tests 12/02/17 20:16: Glucometer 192H 12/03/17 03:05: White Blood Count 5.1, Red Blood Count 4.57, Hemoglobin 12.9L, Hematocrit 38L, Mean Corpuscular Volume 83, Mean Corpuscular Hemoglobin 28, Mean Corpuscular Hemoglobin Concent 34, Red Cell Distribution Width 14.2, Platelet Count 164, Mean Platelet Volume 10.5H, Neutrophils (%) (Auto) 51, Lymphocytes (%) (Auto) 31 , Monocytes (%) (Auto) 15H, Eosinophils (%) (Auto) 3, Basophils (%) (Auto) 1, Neutrophils # (Auto) 2.6, Lymphocytes # (Auto) 1.6, Monocytes # (Auto) 0.8, Eosinophils # (Auto) 0.1, Basophils # (Auto) 0.0, Sodium Level 135, Potassium Level 3.5L, Chloride Level 101, Carbon Dioxide Level 25, Anion Gap 9, Blood Urea Nitrogen 10, Creatinine 0.84, Estimat Glomerular Filtration Rate > 60, BUN/ Creatinine Ratio 12, Glucose Level 155H, Calcium Level 8.5, Phosphorus Level 3.4 , Magnesium Level 1.3L 12/03/17 05:39: Glucometer 131H 12/03/17 11:12: Glucometer 123H 12/03/17 16:17: Glucometer 250H Microbiology 11/27/17 MRSA Screen - Final, Complete MRSA not isolated Assessment/Plan Assessment/Plan Assess & Plan/Chief Complaint HYPERTENSION DIABETES MELLITUS 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 DIABETES MELLITUS - PT ON HOME REGIMEN - MONITOR FSBS - SUBACUTE STROKE IN RIGHT PARIETAL REGION - DISCUSSED WITH FAMILY - WILL ORDER PHYSICAL THERAPY AND INPATIENT REHAB EVALUATION. DYSPHAGIA -AND ESOPHAGEAL REFLUX - DR. OLVERA TO DO EGD. HYPERLIPIDEMIA - RESUMED HOME MEDICATION. ATRIAL FIBRILLATION - PT ON XARELTO AND BETA HERMILA THERAPY. Clinical Quality Measures DVT/VTE Risk/Contraindication: Risk Factor Score Per Nursin RFS Level Per Nursing on Admit: 3=High LARISSA LANCE MD Dec 03, 2017 18:18
[2017-12-03] MEDS ORDERED: MAGNESIUM OXIDE (MAG-OX)400 MG TAB PO ONE (20:45)
[2017-12-03] MEDS: TAMSULOSIN 0.4 MG (FLOMAX) CAP PO SCH (21:15)
[2017-12-03] MEDS: inSUlin DETERMIR 1 UNIT/0.01 ML (LEVEMIR) CHARGE PER UNIT SQ SCH (21:15)
--- NOTE | 2017-12-03 21:31 | Conscious Sedation/ASA ---
Conscious Sedation Pre-Proced Time Reviewed: 21:00 ASA Class: 2 Airway Mallampati Classification: ([place] appropriate class) I. II. III, IV Lungs Heart ASA score ASA 1: a normal healthy patient ASA 2: a patient with a mild systemic disease (mid diabetes, controlled hypertension, obesity ASA 3: a patient with a severe systemic disease that limits activity (angina , COPD, prior Myocardial infarction) ASA 4: a patient with an incapacitating disease that is a constant threat to life (CHF, renal failure) ASA 5: a moribund patient not expected to survive 24 hrs. (ruptured aneurysm) ASA 6: a declared brain patient whose organs are being harvested. For emergent operations, add the letter E after the classification Grade 2 Sedation Plan: Analgesia, Amnesia, Plan communicated to team members, Discussed options with patient/fam, Discussed risks with patient/fam Note The patient is an appropriate candidate to undergo the planned procedure, sedation, and anesthesia. The patient immediately re-assessed prior to indication. ASHA OLVERA MD Dec 03, 2017 9:31 pm
--- NOTE | 2017-12-03 21:32 | Progress Note-Pre Operative ---
Pre-Operative Progress Note H&P Reviewed The H&P was reviewed, patient examined and no changes noted. Date Seen by Provider: Dec 03, 2017 Time Seen by Provider: 21:00 Date H&P Reviewed: Dec 03, 2017 Time H&P Reviewed: 21:00 Pre-Operative Diagnosis: dysphagia ASHA OLVERA MD Dec 03, 2017 9:32 pm
[2017-12-04] VITALS: BP 126/66
[2017-12-04] MEDS: ACETAMINOPHEN 500 MG TAB (TYLENOL) PO PRN (01:20)
[2017-12-04 03:22] LABS: BASOPHILS % (AUTO) 1 % (0-10); EOSINOPHILS # (AUTO) 0.1 10^3/uL (0.0-0.3); EOSINOPHILS % (AUTO) 3 % (0-10); HEMATOCRIT 39 % (40-54); HEMOGLOBIN 13.1 G/DL (13.3-17.7); LYMPHOCYTES # (AUTO) 1.3 X 10^3 (1.0-4.0); LYMPHOCYTES % (AUTO) 27 % (12-44); MEAN CORPUSCULAR HEMOGLOBIN 28 PG (25-34); MEAN CORPUSCULAR HGB CONC 33 G/DL (32-36); MEAN CORPUSCULAR VOLUME 83 FL (80-99); MEAN PLATELET VOLUME 10.5 FL (7.4-10.4); MONOCYTES # (AUTO) 0.8 X 10^3 (0.0-1.0); MONOCYTES % (AUTO) 16 % (0-12); NEUTROPHILS # (AUTO) 2.7 X 10^3 (1.8-7.8); NEUTROPHILS % (AUTO) 54 % (42-75); PLATELET COUNT 191 10^3/uL (130-400); RED BLOOD COUNT 4.72 10^6/uL (4.35-5.85); RED CELL DISTRIBUTION WIDTH 14.3 % (10.0-14.5)
[2017-12-04 03:47] LABS: BUN/CREATININE RATIO 12; CALCIUM 8.6 MG/DL (8.5-10.1); CARBON DIOXIDE 27 MMOL/L (21-32); CHLORIDE 101 MMOL/L (98-107); CREATININE SERUM 0.84 MG/DL (0.60-1.30); GFR ESTIMATED > 60; GLUCOSE 147 MG/DL (70-105); MAGNESIUM 1.5 MG/DL (1.8-2.4); PHOSPHORUS 3.3 MG/DL (2.3-4.7); POTASSIUM 3.8 MMOL/L (3.6-5.0); SODIUM 135 MMOL/L (135-145)
[2017-12-04] MEDS: inSUlin (REGULAR) HUMAN 1 UNIT/0.01 ML (CHARGE PER UNIT) SC SCH ×2 (05:48→11:19)
[2017-12-04] MEDS: ISOSORBIDE MONONITRATE 30 MG (IMDUR) TAB PO SCH (05:53)
[2017-12-04] MEDS: CATHETER FLUSH 10 ML SYR IV SCH ×2 (05:53→11:24)
[2017-12-04] MEDS: RT-ADVAIR HFA 115/21 MCG PER PUFF IH SCH (06:35)
[2017-12-04] MEDS: RT-ALBUTEROL/IPRATROPIUM 3 ML (DUONEB) VIAL INH SCH (06:35)
[2017-12-04 08:00] VITALS: BP_SYST 116; BP_SYST 129; BP_DIAS 56; BP_DIAS 62
[2017-12-04] MEDS ORDERED: MAGNESIUM OXIDE (MAG-OX)400 MG TAB PO SCH (08:00)
--- NOTE | 2017-12-04 08:54 | Progress Note ---
Subjective Date Seen by Provider: Dec 04, 2017 Time Seen by Provider: 08:53 Subjective/Events-last exam PT REPORTS FEELING FATIGUED - PER HE IS DEPRESSED BECAUSE OF THE STROKE - PER THERAPY STAFF HE IS TOO GOOD FOR INPT REHAB, RECOMMENDATION IS FOR OUTPT THERAPY. Review of Systems General: Fatigue HEENT: Head Aches Pulmonary: No Dyspnea, No Cough Cardiovascular: No: Chest Pain, Palpitations Gastrointestinal: Abdominal Pain Neurological: Weakness Objective Exam Last Set of Vital Signs Vital Signs Date Time Temp Pulse Resp B/P (MAP) Pulse Ox O2 Delivery O2 Flow Rate FiO2 12/04/17 08:27 95 Room Air 12/04/17 00:00 98.2 79 18 126/66 (86) 12/02/17 19:30 3.00 Capillary Refill : Less Than 3 Seconds I&O Intake and Output 12/04/17 00:00 Intake Total 1680 ml Balance 1680 ml Intake Oral 1680 ml # Voids 11 # Bowel Movements 1 General: Alert, No Acute Distress HEENT: Atraumatic, PERRLA Neck: Supple Lungs: Clear to Auscultation Heart: Regular Rate Abdomen: Normal Bowel Sounds, Soft Extremities: Other (WEAKNESS OF LEFT ARM/LEG) Psych/Mental Status: Mental Status NL, Mood NL Results Lab Laboratory Tests 12/03/17 11:12: Glucometer 123H 12/03/17 16:17: Glucometer 250H 12/03/17 20:56: Glucometer 170H 12/04/17 03:15: White Blood Count 5.0, Red Blood Count 4.72, Hemoglobin 13.1L, Hematocrit 39L, Mean Corpuscular Volume 83, Mean Corpuscular Hemoglobin 28, Mean Corpuscular Hemoglobin Concent 33, Red Cell Distribution Width 14.3, Platelet Count 191, Mean Platelet Volume 10.5H, Neutrophils (%) (Auto) 54, Lymphocytes (%) (Auto) 27 , Monocytes (%) (Auto) 16H, Eosinophils (%) (Auto) 3, Basophils (%) (Auto) 1, Neutrophils # (Auto) 2.7, Lymphocytes # (Auto) 1.3, Monocytes # (Auto) 0.8, Eosinophils # (Auto) 0.1, Basophils # (Auto) 0.0, Sodium Level 135, Potassium Level 3.8, Chloride Level 101, Carbon Dioxide Level 27, Anion Gap 7, Blood Urea Nitrogen 10, Creatinine 0.84, Estimat Glomerular Filtration Rate > 60, BUN/ Creatinine Ratio 12, Glucose Level 147H, Calcium Level 8.6, Phosphorus Level 3.3 , Magnesium Level 1.5L 12/04/17 05:44: Glucometer 128H Microbiology 11/27/17 MRSA Screen - Final, Complete MRSA not isolated Assessment/Plan Assessment/Plan Assess & Plan/Chief Complaint HYPERTENSION DIABETES MELLITUS 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 DYSPHAGIA -AND ESOPHAGEAL REFLUX - OPERATIVE RECORD PER DR. OLVERA - PREOPERATIVE DIAGNOSIS: Dysphagia. POSTOPERATIVE DIAGNOSES: Reflux esophagitis class B. No esophageal strictures. Small hiatal hernia approximately 1.5 cm in size, mild to moderate gastritis. PROCEDURE: EGD with biopsy. HYPERLIPIDEMIA - RESUMED HOME MEDICATION. ATRIAL FIBRILLATION - PT ON XARELTO AND BETA HERMILA THERAPY. Clinical Quality Measures DVT/VTE Risk/Contraindication: Risk Factor Score Per Nursin RFS Level Per Nursing on Admit: 3=High LARISSA LANCE MD Dec 04, 2017 08:54
--- NOTE | 2017-12-04 09:40 | Physical Therapy Evaluation ---
PT Evaluation-General Medical Diagnosis Admission Date Nov 26, 2017 at 20:43 Medical Diagnosis: Acute DKA, Acute Renal Failure Onset Date: Nov 26, 2017 Therapy Diagnosis Therapy Diagnosis: debility Height/Weight Height (Feet): 5 Height (Inches): 11.00 Weight (Pounds): 215 Weight (Ounces): 2.0 Precautions Precautions/Isolations: Standard Precautions Weight Bear Status Right Lower Extremity: Right Full Weight Bearing Left Lower Extremity: Left Full Weight Bearing Referral Physician: Marielos Reason for Referral: Evaluation/Treatment Medical History Pertinent Medical History: Atrial Fib, CABG, CAD, COPD, DM, GERD, HTN Additional Medical History ED 11/26/17 secondary to difficulty swallowing and increase SOA Current History dehydration/hyponatremia s/p subacute stroke right parietal Reviewed History: Yes Social History Home: Single Level Current Living Status: Spouse Entry Into Home: Stairs With Railing PT Steps Into Home: 3 PT Steps Inside Home: 7 Prior/Core FIM Prior Level of Function Functional [place] Measure 0=Not Assessed/NA 4=Minimal Assistance 1=Total Assistance 5=Supervision or Setup 2=Maximal Assistance 6=Modified [place] 3=Moderate Assistance 7=Complete [place] Bed Mobility: 7 Transfers (B,C,W/C) (FIM): 7 Gait: 7 PT Evaluation-Current Subjective Spouse agrees to PT, however, patient requires much encouragement for assessment. Pain Numeric Pain Scale: 8 Location: Anterior Location Body Site: Head Pain Description: Pressure, Throbbing Objective Patient Orientation: Normal For Age Problem Solving: Good ROM/Strength ROM Lower Extremities bilateral LE WNL Strength Lower Extremities right knee flexion/extension 5/5; hip flexion 5/5; DF/PF 5/5 left knee flexion/extension 5/5; hip flexion 5/5; DF/PF 5/5 Integumentary/Posture Integumentary refer to nursing Bowel Incontinence: No Bladder Incontinence: No Posture WFL Neuromuscular (Tone, Coordination, Reflexes) grossly intact Sensory Vision: Functional Hearing: Functional Sensation Right Lower Extremit: Impaired Sensation Left Lower Extremity: Impaired Transfers Functional [place] Measure 0=Not Assessed/NA 4=Minimal Assistance 1=Total Assistance 5=Supervision or Setup 2=Maximal Assistance 6=Modified [place] 3=Moderate Assistance 7=Complete [place] Transfers (B, C, W/C) (FIM): 7 Scootin Rollin Supine to/from Sit: 7 Sit to/from Stand: 7 Gait Mode of Locomotion: Walk Anticipated Mode of Locomotion: Walk Gait (FIM): 1 Distance (FIM): 1=up to 49 ft Distance: 25' x 2 Gait Level of Assist: 7 Gait Assistive Device: None Comments/Gait Description steady, functional Balance Sitting Static: Normal Sitting Dynamic: Normal Standing Static: Normal Standing Dynamic: Normal Assessment/Needs 67 y.o. male, is currently at independent PLOF and does not requires skilled therapy intervention. Patient requires much encouragement to actively participate and appears to self limit and ceases treatment when he deems ready. Physician notified. Rehab Potential: Fair Post Rehab Potential-Barriers: compliance PT Plan Treatment/Plan Treatment Plan: Discontinue PT Treatment Plan: Other Treatment Duration: Dec 04, 2017 Frequency: 1 time per week Estimated Hrs Per Day: .5 hour per day Patient and/or Family Agrees t: Yes Safety Risks/Education Patient Education: Safety Issues Teaching Recipient: Patient, Significant Other Teaching Methods: Discussion Response to Teaching: Verbalize Understanding, Reinforcement Needed (patient) Discharge Recommendations Therapy D/C Recommendations: Home w/ Family Support, Physical Therapy Home Care Time/GCodes Time In: 815 Time Out: 832 Total Billed Treatment Time: 17 [facility] FR[facility] Dec 04, 2017 09:39
[2017-12-04] MEDS ORDERED: NS IV 500 ML 500 ML ONE (09:59)
[2017-12-04] MEDS: fentaNYL INJECTION 100 MCG/2 ML AMP IVP PRN ×2 (10:00→10:15)
[2017-12-04] MEDS: MIDAZOLAM 2 MG/2 ML (VERSED) VIAL IVP PRN ×2 (10:03→10:10)
[2017-12-04] MEDS ORDERED: NS IV 500 ML 500 ML IV PRN (10:14)
[2017-12-04] MEDS ORDERED: HURRICAINE EXT TUBE (BENZOCAINE) XX PRN (10:15)
[2017-12-04] MEDS ORDERED: LIDOCAINE JELLY 2% (XYLOCAINE) 5 ML TUBE MM PRN (10:15)
--- NOTE | 2017-12-04 10:36 | Progress Note-Post Operative ---
Post-Operative Progess Note Surgeon (s)/Industrial/Organizational Psychologist (s) Surgeon ASHA OLVERA MD Industrial/Organizational Psychologist: none Pre-Operative Diagnosis dysphagia Post-Operative Diagnosis reflux esophagitis(class B), no esophageal strictures, small HH(1.5cm), mild-moderate gastritis. Procedure & Operative Findings Date of Procedure 12/04/17 Procedure Performed/Findings EGD with bx. Anesthesia Type CS Estimated Blood Loss Estimated blood loss (mL): minimal Specimens/Packing Specimens Removed GE jxn, antrum ASHA OLVERA MD Dec 04, 2017 10:36 am
[2017-12-04] MEDS ORDERED: NEED-116 MC (11:15)
[2017-12-04] MEDS ORDERED: INSU100I29 SQ (11:15)
--- NOTE | 2017-12-04 11:15 | OPERATIVE REPORT ---
DATE OF SERVICE: 12/04/2017 PRIMARY CARE PHYSICIAN: Dr. Dolores Petty. PREOPERATIVE DIAGNOSIS: Dysphagia. POSTOPERATIVE DIAGNOSES: Reflux esophagitis class B. No esophageal strictures. Small hiatal hernia approximately 1.5 cm in size, mild to moderate gastritis. PROCEDURE: EGD with biopsy. SURGEON: Dr. Olvera. ANESTHESIA: Conscious sedation. ESTIMATED BLOOD LOSS: Minimal. FINDINGS: Thick mucus secretions in the hypopharyngeal region. There were no nodules or polyps or any obstructing lesions identified. There were no esophageal strictures, only thick secretions found within the esophagus as well. Reflux esophagitis class B, small hiatal hernia approximately 1.5 cm in size, which was a type 1 sliding. Mild to moderate gastritis, no ulcers, polyps or any neoplasms. Pylorus and duodenum appeared normal with no distal obstructions. DISPOSITION: The patient tolerated the procedure well. INDICATIONS: The patient is a 67-year-old male who presented with weakness, dyspnea, nausea as well as dysphagia. He is an insulin-dependent diabetic for the past 15 to 20 years. He was seen in the office and had reported the issues with dysphagia and was already scheduled for an EGD. He reports that he has difficulty swallowing and when trying to propel a food bolus in the back of the throat, he would have difficulty. He reports that he did undergo an EGD approximately in 2009 and was told that he had improper movements of the epiglottis, which may indicate some form of neurologic dysphagia related to his diabetes. Speech pathology was consulted and a swallow study was performed, which did not show any abnormalities in swallow function. He does report occasional episodes of reflux; however, not severe or frequent. DESCRIPTION OF PROCEDURE: The patient was brought to the endoscopy suite, laid in the left lateral decubitus position with head slightly elevated. After adequate IV pain and sedating medications and conscious sedation of anesthesia, the mouthpiece was applied. The endoscope was placed in the mouth, visualizing the pharynx and hypopharyngeal region. Vocal cords, epiglottis and vallecula identified and appeared to be normal. The endoscope was then gently intubated in the esophageal opening, esophagus is insufflated. There was thick secretion identified in the hypopharyngeal region overlying the esophageal opening as well as over the larynx. There appear to be an appropriate movement upon respiration. Thick mucus secretions were identified throughout this region. The endoscope was then intubated into the esophageal opening and esophagus is insufflated. These thick secretions were also identified within the esophagus. The endoscope was then advanced to the first, second and third portion of the esophagus at the level of the GE junction, a reflux esophagitis class B identified. There were no strictures identified throughout the esophagus. A biopsy was taken of the GE junction using forceps with visualization of good hemostasis. The endoscope was then advanced in the stomach and endoscope retroflexed, visualizing a small hiatal hernia with approximately 1.5 cm in size, which was consistent with a type 1 sliding hiatal hernia. There was a mild to moderate gastritis, no ulcers, polyps or any neoplasms identified. A biopsy was taken of the stomach antrum for H. pylori with visualization of good hemostasis. The endoscope was then advanced to the pylorus into the first and second portion of the duodenum, which appeared normal with no distal obstructions. The endoscope was then slowly withdrawn while taking a second look and suctioning of residual air with no additional findings. The patient tolerated the procedure well. We will recommend medical management with continued management with small and more frequent meals, avoidance of eating at night as well as head elevation while lying supine. He also needs to take small bites of food and chew thoroughly and take in small liquid boluses with his food. If he continues to have problems with dysphagia, then we feel that his hypopharyngeal region will then further need to be evaluated with manometric studies or a referral to an ENT. Job ID: [id number] DocumentID: [id number] Dictated Date: 12/04/2017 10:44:44 Supervisor Public Health Nursing Date: 12/04/2017 11:15:01 Dictated By: ASHA OLVERA MD
--- NOTE | 2017-12-04 11:17 | Discharge Inst-Complex ---
PDI Med Rec & Follow Up Appt. New Medications: Insulin Detemir (Levemir Flextouch) 100 Unit/1 Ml Insuln.pen 40 UNIT SQ DAILY, #3 EA 3 Refills [place], Insulin Disposable (Bd Ultra-Fine Pen Needle) 1 Each Dis.needle EACH MC DAILY for diabetes, #1 6 Refills use with insulin Scopolamine (Transderm-Scop) 1 Each Patch.td72 1.5 MG TOP Q72H, #1 PATCH Changed Medications: Pantoprazole Sodium (Pantoprazole Sodium) 40 Mg Tablet.dr 40 MG PO BID, #60 TAB (Changed from: 80 MG; DAILY; Removed Instructions) Continued Medications: Aspirin (Aspirin) 81 Mg Tab.chew 81 MG PO DAILY, TAB.CHEW Atorvastatin Calcium (Atorvastatin Calcium) 40 Mg Tablet 40 MG PO DAILY, TAB Citalopram Hydrobromide (Citalopram HBr) 20 Mg Tablet 20 MG PO DAILY, TAB Digoxin (Digoxin) 125 Mcg Tablet 125 MCG PO MoTuWeThFrSa, TAB Finasteride (Finasteride) 5 Mg Tablet 5 MG PO 1700, TAB LAST FILLED #90 12-5-17 Fluticasone/Vilanterol (Breo Ellipta 200-25 Mcg INH) 1 Each Blst.w.dev 1 PUFF INH DAILY, INHALER Isosorbide Mononitrate (Isosorbide Mononitrate ER) 60 Mg Tab 60 MG PO DAILY, TAB Metoprolol Tartrate (Metoprolol Tartrate) 50 Mg Tablet 50 MG PO DAILY, TAB Metoprolol Tartrate (Metoprolol Tartrate) 50 Mg Tablet 25 MG PO 1500, TAB TAKES 1/2 (50MG) TABLET Morphine Sulfate (Morphine Sulfate ER) 30 Mg Tablet.er 30 MG PO BID, TAB Oxycodone HCl/Acetaminophen (Oxycodone-Acetaminophen 10-325) 1 Each Tablet 2 TAB PO Q6H PRN for PAIN-MODERATE, TAB Rivaroxaban (Xarelto) 20 Mg Tablet 20 MG PO DAILY, TAB Tamsulosin HCl (Tamsulosin HCl) 0.4 Mg Cap.er.24h 0.4 MG PO DAILY, CAP Discontinued Medications: Insulin Lispro (Humalog) 100 Unit/1 Ml Vial SQ PER INSULIN PUMP, VIAL Prescription: Transmitted to Pharmacy ([facility]) Activity, Diet and PDI Resume Normal Activity: Yes Discharge Diet: ADA Diet, Cardiac Diet Drink 6-8 Glasses of Fluid/Day: Yes Driving Instructions: No Driving for 24 Hours Symptoms to Reoprt to : Appetite Changes, Bleeding Excessive, Pain/Pressure in Chest, Pain/Pressure in Shoulder, Memory Changes Suddenly, Questions/Concerns , Shortness of Breath, Weight Gain Over 2 Pounds For Problems or Questions: Contact Your Physician, Go to Emergency Room LARISSA LANCE MD Dec 04, 2017 11:17
[2017-12-04] MEDS: ATORVASTATIN 40 MG (LIPITOR) TABLET PO SCH (11:19)
[2017-12-04] MEDS: morphine ER 30 MG (MS CONTIN) TAB PO SCH (11:20)
[2017-12-04] MEDS: ASPIRIN 81 MG CHEW (CHILDREN'S ASA) PO SCH (11:20)
[2017-12-04] MEDS: meTOprolol TARTRATE 50 MG (LOPRESSOR) TAB PO SCH (11:20)
[2017-12-04] MEDS: PANTOPRAZOLE 40 MG (PROTONIX) TAB PO SCH (11:20)
[2017-12-04] MEDS: DIGOXIN 0.125 MG (LANOXIN) TAB PO SCH (11:24)
[2017-12-04 15:53] VITALS: BP 116/56
--- NOTE | 2017-12-05 12:39 | Physician Query Clarification ---
PQ-Present on Admission Admission/Discharge Admission Date: Nov 26, 2017 at 20:43 Discharge Date: Dec 04, 2017 at 15:56 Question: Subacute stroke in right parietal region was documented in your 12/03 progress note. Can you specify if this condition was present on admission? Please document a response below. PHYSICIAN RESPONSE Condition was Present on Admit: Yes In responding to this query, please exercise your independent professional judgment. The purpose of this communication is to more accurately reflect the complexity of your patients condition. The fact that a question is asked does not imply that any particular answer is desired or expected. Thank you for your timely response to this clarification. Requestors name: Bettie Macias CCS,CCDS Phone # ext [phone] or [phone] THIS PHYSICIAN QUERY FORM IS A PERMANENT PART OF THE MEDICAL RECORD BETTIE MACIAS Dec 05, 2017 12:39 LARISSA LANCE MD Dec 05, 2017 19:13
== END 2017-12-04 15:56 | disposition home or self-care (01) | DRG 637 ==
LOC: EDUNIT# 18:31 → ER 18:33 → ICU 20:43 → 4TH 11-29 13:44
PROVIDERS: ADMIT Family Medicine; ATTEND Family Medicine
PROC: 0DB78ZX Excision of Stomach, Pylorus, Via Natural or Artificial Opening Endoscopic, Diagnostic (ICD-10-PCS; 2017-12-04)
PROC: 0DB48ZX Excision of Esophagogastric Junction, Via Natural or Artificial Opening Endoscopic, Diagnostic (ICD-10-PCS; principal; 2017-12-04 09:55)
DX: E11.10 Type 2 diabetes mellitus with ketoacidosis without coma (principal); N17.9 Acute kidney failure, unspecified; E87.1 Hypo-osmolality and hyponatremia; I63.9 Cerebral infarction, unspecified; K21.0 Gastro-esophageal reflux disease with esophagitis; K29.70 Gastritis, unspecified, without bleeding; K44.9 Diaphragmatic hernia without obstruction or gangrene; J44.9 Chronic obstructive pulmonary disease, unspecified; R13.10 Dysphagia, unspecified; E86.0 Dehydration; I10 Essential (primary) hypertension; I25.10 Atherosclerotic heart disease of native coronary artery without angina pectoris; G89.4 Chronic pain syndrome; M54.9 Dorsalgia, unspecified; D86.9 Sarcoidosis, unspecified; G47.30 Sleep apnea, unspecified; I48.91 Unspecified atrial fibrillation; I25.2 Old myocardial infarction; E78.00 Pure hypercholesterolemia, unspecified; N42.9 Disorder of prostate, unspecified; F32.9 Major depressive disorder, single episode, unspecified; Z79.4 Long term (current) use of insulin; Z95.1 Presence of aortocoronary bypass graft; Z95.5 Presence of coronary angioplasty implant and graft; Z95.810 Presence of automatic (implantable) cardiac defibrillator; Z79.891 Long term (current) use of opiate analgesic; Z86.73 Personal history of transient ischemic attack (TIA), and cerebral infarction without residual deficits
CPT/HCPCS: 36415; 36600; 70450; 71045; 71046; 74230; 80048; 80053; 81000; 82805; 82962; 83735; 84100; 84484; 85025; 87081; 93005; 93041; 94640; 94664; 94760; 96360

== ENCOUNTER → 2017-11-27 | Outpatient (CLI) | payer MEDICARE ==
[~2017-11-27] MED LIST changes: +ACETAMINOPHEN 325 MG TABLET/CAPLET (TYLENOL) PO PRN; +ATOR40TA70 PO; +CITA20TA7 PO; +FLUT1BLS INH; +HYDROcodone/APAP 5 MG/325 MG (LORTAB) TAB PO PRN; +ISM60TCR PO; +METO50TA15 PO; +ONDANSETRON 4 MG/2 ML (SDV) Z0FRAN IV PRN; +SCOP1PAT11 TOP; +morphine INJ 10 MG/ML 1ML (SYR OR VIAL) IV PRN
--- NOTE | 2017-11-27 09:11 | Conscious Sedation/ASA ---
Conscious Sedation Pre-Proced Time Reviewed: 09:11 ASA Class: 2 Airway Mallampati Classification: ([place] appropriate class) I. II. III, IV Lungs Heart ASA score ASA 1: a normal healthy patient ASA 2: a patient with a mild systemic disease (mid diabetes, controlled hypertension, obesity ASA 3: a patient with a severe systemic disease that limits activity (angina , COPD, prior Myocardial infarction) ASA 4: a patient with an incapacitating disease that is a constant threat to life (CHF, renal failure) ASA 5: a moribund patient not expected to survive 24 hrs. (ruptured aneurysm) ASA 6: a declared brain patient whose organs are being harvested. For emergent operations, add the letter E after the classification Grade 2 Sedation Plan: Analgesia, Amnesia, Plan communicated to team members, Discussed options with patient/fam, Discussed risks with patient/fam Note The patient is an appropriate candidate to undergo the planned procedure, sedation, and anesthesia. The patient immediately re-assessed prior to indication. ASHA OLVERA MD Nov 27, 2017 9:11 am
--- NOTE | 2017-11-27 09:12 | Progress Note-Pre Operative ---
Pre-Operative Progress Note H&P Reviewed The H&P was reviewed, patient examined and no changes noted. Date Seen by Provider: Nov 27, 2017 Time Seen by Provider: 09:11 Date H&P Reviewed: Nov 27, 2017 Time H&P Reviewed: 09:11 Pre-Operative Diagnosis: dysphagia, GERD ASHA OLVERA MD Nov 27, 2017 9:12 am
== END ==
LOC: PREOP 05:47
PROVIDERS: ATTEND Surgery
DX: Z01.818 Encounter for other preprocedural examination (principal); R13.10 Dysphagia, unspecified

== ENCOUNTER 2018-02-07 13:14 | Outpatient (RCR) | payer MEDICARE ==
[~2018-02-07 13:14] MED LIST changes: -ACETAMINOPHEN 325 MG TABLET/CAPLET (TYLENOL) PO PRN; -CITA20TA7 PO; +CITA20TA9 PO; -HYDROcodone/APAP 5 MG/325 MG (LORTAB) TAB PO PRN; +INSU100I29 SQ; +NEED-116 MC; -ONDANSETRON 4 MG/2 ML (SDV) Z0FRAN IV PRN; -morphine INJ 10 MG/ML 1ML (SYR OR VIAL) IV PRN
== END 2018-02-07 15:23 | disposition home or self-care (01) ==
PROVIDERS: ATTEND Family Medicine
DX: I69.398 Other sequelae of cerebral infarction (principal); I69.311 Memory deficit following cerebral infarction; M54.5 Low back pain

== ENCOUNTER 2018-05-25 11:22 | Emergency (ER) | payer MEDICARE ==
[~2018-05-25] VITALS: Ht 185.4 cm; Wt 108.0 kg
[~2018-05-25 11:22] MED LIST changes: -IPRA3AMP INH; +IPRA3AMP31 INH
[2018-05-25] MEDS ORDERED: ONDANSETRON 4 MG/2 ML (SDV) Z0FRAN IVP ONE (11:45)
[2018-05-25 12:03] LABS: BASOPHILS % (AUTO) 0 % (0-10); EOSINOPHILS # (AUTO) 0.1 10^3/uL (0.0-0.3); EOSINOPHILS % (AUTO) 1 % (0-10); HEMATOCRIT 40 % (40-54); HEMOGLOBIN 13.5 G/DL (13.3-17.7); LYMPHOCYTES # (AUTO) 0.8 X 10^3 (1.0-4.0); LYMPHOCYTES % (AUTO) 11 % (12-44); MEAN CORPUSCULAR HEMOGLOBIN 28 PG (25-34); MEAN CORPUSCULAR HGB CONC 34 G/DL (32-36); MEAN CORPUSCULAR VOLUME 83 FL (80-99); MEAN PLATELET VOLUME 11.2 FL (7.4-10.4); MONOCYTES # (AUTO) 0.6 X 10^3 (0.0-1.0); MONOCYTES % (AUTO) 9 % (0-12); NEUTROPHILS # (AUTO) 5.2 X 10^3 (1.8-7.8); NEUTROPHILS % (AUTO) 79 % (42-75); PLATELET COUNT 165 10^3/uL (130-400); RED BLOOD COUNT 4.79 10^6/uL (4.35-5.85); RED CELL DISTRIBUTION WIDTH 13.8 % (10.0-14.5); WHITE BLOOD COUNT 6.6 10^3/uL (4.3-11.0)
[2018-05-25 12:23] LABS: ALANINE AMINOTRANSFERASE 13 U/L (0-55); ALBUMIN 4.1 GM/DL (3.2-4.5); ALKALINE PHOSPHATASE 77 U/L (40-136); AMYLASE 47 U/L (25-125); BILIRUBIN,TOTAL 0.7 MG/DL (0.1-1.0); BUN/CREATININE RATIO 15; CALCIUM 8.9 MG/DL (8.5-10.1); CARBON DIOXIDE 22 MMOL/L (21-32); CHLORIDE 100 MMOL/L (98-107); CREATININE SERUM 1.07 MG/DL (0.60-1.30); GFR ESTIMATED > 60; GLUCOSE 176 MG/DL (70-105); LIPASE 15 U/L (8-78); POTASSIUM 3.4 MMOL/L (3.6-5.0); SODIUM 137 MMOL/L (135-145); TOTAL PROTEIN 6.7 GM/DL (6.4-8.2)
--- NOTE | 2018-05-25 12:32 | ED Abdominal Pain ---
General Chief Complaint: Abdominal/GI Problems Stated Complaint: BACK PAIN, GALLSTONES Nursing Triage Note: PT CO OF ABD PAIN, HAS BEEN VOMITING FOR APPROX 3 DAYS INTERMITTENTLY, STATES ABD PAIN STARTED TODAY, R FLANK AND R SIDE ABD. PT STATES IN NOVEMBER HAD SONO W GALLSTONES Sepsis Screen: No Definite Risk Source of Information: Patient Exam Limitations: No Limitations History of Present Illness Date Seen by Provider: May 25, 2018 Time Seen by Provider: 11:50 Initial Comments Patient is a 67-year-old male who presents to the emergency room with complaints of nausea, vomiting for the past 3 days and abdominal pain to his right upper quadrant, right flank that started this morning. Patient reports that in November he found out that he did have gallstones. Denies any constipation , diarrhea, fevers. Location: RUQ, Flank (right flank) Radiation: RUQ Activities at Onset: None Associated Symptoms: No Fever/Chills; Nausea/Vomiting Allergies and Home Medications Allergies Coded Allergies: No Known Drug Allergies (Verified , 03/17/08) Home Medications Aspirin 81 Mg Tab.chew, 81 MG PO DAILY, (Reported) Atorvastatin Calcium 40 Mg Tablet, 40 MG PO DAILY, (Reported) Citalopram Hydrobromide 20 Mg Tablet, 20 MG PO DAILY, (Reported) Digoxin 125 Mcg Tablet, 125 MCG PO MoTuWeThFrSa, (Reported) Finasteride 5 Mg Tablet, 5 MG PO 1700, (Reported) LAST FILLED #90 12-5-17 Fluticasone/Vilanterol 1 Each Blst.w.dev, 1 PUFF INH DAILY, (Reported) Insulin Detemir 100 Unit/1 Ml Insuln.pen, 40 UNIT SQ DAILY Prescribed by: LARISSA LANCE on 12/04/17 1115 Isosorbide Mononitrate 60 Mg Tab, 60 MG PO DAILY, (Reported) Metoprolol Tartrate 50 Mg Tablet, 50 MG PO DAILY, (Reported) Metoprolol Tartrate 50 Mg Tablet, 25 MG PO 1500, (Reported) TAKES 1/2 (50MG) TABLET Morphine Sulfate 30 Mg Tablet.er, 30 MG PO BID, (Reported) Ondansetron 4 Mg Tab.rapdis, 4 MG SL Q4H PRN for NAUSEA/VOMITING-1ST LINE Prescribed by: NARESH CASTRO on 05/25/18 1508 Oxycodone HCl/Acetaminophen 1 Each Tablet, 2 TAB PO Q6H PRN for PAIN-MODERATE, ( Reported) Pantoprazole Sodium 40 Mg Tablet.dr, 40 MG PO BID Prescribed by: ZACKARY PAULINO on 11/29/171534 Rivaroxaban 20 Mg Tablet, 20 MG PO DAILY, (Reported) Scopolamine 1 Each Patch.td72, 1.5 MG TOP Q72H Prescribed by: ZACKARY PAULINO on 11/29/171534 Tamsulosin HCl 0.4 Mg Cap.er.24h, 0.4 MG PO DAILY, (Reported) Patient Home Medication List Home Medication List Reviewed: Yes Review of Systems Review of Systems Constitutional: see HPI; No chills, No fever Gastrointestinal: See HPI, Abdominal Pain; Denies Constipated, Denies Diarrhea ; Nausea, Vomiting All Other Systems Reviewed Negative Unless Noted: Yes Past Znojjfj-Zwztiy-Zdmnwl Hx Past Med/Social Hx: Reviewed Nursing Past Med/Soc Hx Patient Social History Alcohol Use: Denies Use Recreational Drug Use: No Smoking Status: Former Smoker Type Used: Cigarettes Former Smoker, Quit: May 20, 2001 Recent Foreign Travel: No Contact w/Someone Who Travel: No Recent Infectious Disease Expo: No Recent Hopitalizations: No Physical Abuse: No Sexual Abuse: No Immunizations Up To Date Date of Pneumonia Vaccine: Jun 23, 2014 Date of Influenza Vaccine: Jun 11, 2017 Seasonal Allergies Seasonal Allergies: No Past Medical History Surgeries: Yes (BYPASS X2, BACK, SHOULDER , NERVE RELEASE ON RIGHT ELBOW) Appendectomy, Cardiac, CABG, Defibrillator, Pacemaker Respiratory: Yes (sarcoidosis) Chronic Bronchitis, Sleep Apnea Currently Using CPAP: No Currently Using BIPAP: Yes Cardiac: Yes Atrial Fibrillation, Coronary Artery Disease, Heart Attack, High Cholesterol, Hypertension, Irregular Heartbeat Neurological: Yes TIA Reproductive Disorders: No Genitourinary: Yes Prostate Problems Gastrointestinal: No Musculoskeletal: Yes Chronic Back Pain Endocrine: Yes Diabetes, Insulin dep HEENT: No Cancer: No Psychosocial: Yes Depression Integumentary: No Blood Disorders: No Family Medical History Reviewed Nursing Family Hx Arthritis 19 FATHER 19 MOTHER G8 SISTER G8 SISTER G8 SISTER Cataracts G8 SISTER Diabetes mellitus G8 SISTER G8 SISTER No Pertinent Family Hx Physical Exam Vital Signs Vital Signs - First Documented 05/25/18 11:25 Temp 97.6 Pulse 63 Resp 18 B/P (MAP) 154/82 (106) Pulse Ox 95 O2 Delivery Room Air Capillary Refill : Less Than 3 Seconds Height/Weight/BMI Height: 6'1.00" Weight: 238lbs. 3.0oz. 107.554184xk; 28.1 BMI Method:Stated General Appearance: WD/WN, no apparent distress Respiratory: chest non-tender, lungs clear, normal breath sounds, no respiratory distress, no accessory muscle use Cardiovascular: normal peripheral pulses, regular rate, rhythm, no edema, no gallop, no JVD, no murmur Gastrointestinal: normal bowel sounds, soft, no organomegaly, no pulsatile mass , tenderness (right upper quadrant tenderness) Neurologic/Psychiatric: alert, normal mood/affect, oriented x 3 Skin: normal color, warm/dry Progress/Results/Core Measures Results/Orders Lab Results Laboratory Tests Test 05/25/18 11:49 05/25/18 11:54 05/25/18 13:17 05/25/18 14:14 Range/Units White Blood Count 6.6 4.3-11.0 10^3/uL Red Blood Count 4.79 4.35-5.85 10^6/uL Hemoglobin 13.5 13.3-17.7 G/DL Hematocrit 40 40-54 % Mean Corpuscular Volume 83 80-99 FL Mean Corpuscular Hemoglobin 28 25-34 PG Mean Corpuscular Hemoglobin Concent 34 32-36 G/DL Red Cell Distribution Width 13.8 10.0-14.5 % Platelet Count 165 130-400 10^3/uL Mean Platelet Volume 11.2 H 7.4-10.4 FL Neutrophils (%) (Auto) 79 H 42-75 % Lymphocytes (%) (Auto) 11 L 12-44 % Monocytes (%) (Auto) 9 0-12 % Eosinophils (%) (Auto) 1 0-10 % Basophils (%) (Auto) 0 0-10 % Neutrophils # (Auto) 5.2 1.8-7.8 X 10^3 Lymphocytes # (Auto) 0.8 L 1.0-4.0 X 10^3 Monocytes # (Auto) 0.6 0.0-1.0 X 10^3 Eosinophils # (Auto) 0.1 0.0-0.3 10^3/uL Basophils # (Auto) 0.0 0.0-0.1 10^3/uL Sodium Level 137 135-145 MMOL/L Potassium Level 3.4 L 3.6-5.0 MMOL/L Chloride Level 100 98-107 MMOL/L Carbon Dioxide Level 22 21-32 MMOL/L Anion Gap 15 H 5-14 MMOL/L Blood Urea Nitrogen 16 7-18 MG/DL Creatinine 1.07 0.60-1.30 MG/DL Estimat Glomerular Filtration Rate > 60 BUN/Creatinine Ratio 15 Glucose Level 176 H 70-105 MG/DL Calcium Level 8.9 8.5-10.1 MG/DL Corrected Calcium 8.8 8.5-10.1 MG/DL Total Bilirubin 0.7 0.1-1.0 MG/DL Aspartate Amino Transf (AST/SGOT) 12 5-34 U/L Alanine Aminotransferase (ALT/SGPT) 13 0-55 U/L Alkaline Phosphatase 77 40-136 U/L Total Protein 6.7 6.4-8.2 GM/DL Albumin 4.1 3.2-4.5 GM/DL Amylase Level 47 25-125 U/L Lipase 15 8-78 U/L Glucometer 164 H 139 H 70-110 MG/DL Urine Color YELLOW Urine Clarity CLEAR Urine pH 5 5-9 Urine Specific Rice 1.025 H 1.016-1.022 Urine Protein 3+ H NEGATIVE Urine Glucose (UA) 3+ H NEGATIVE Urine Ketones 2+ H NEGATIVE Urine Nitrite NEGATIVE NEGATIVE Urine Bilirubin 1+ H NEGATIVE Urine Urobilinogen 1 NORMAL MG/DL Urine Leukocyte Esterase 1+ H NEGATIVE Urine RBC (Auto) NEGATIVE NEGATIVE Urine RBC NONE /HPF Urine WBC 2-5 /HPF Urine Squamous Epithelial Cells 2-5 /HPF Urine Crystals PRESENT H /LPF Urine Amorphous Sediment RARE MARIBEL URATES H /LPF Urine Bacteria TRACE /HPF Urine Casts PRESENT /LPF Urine Hyaline Casts 2-5 H /LPF Urine Mucus MODERATE H /LPF Urine Culture Indicated NO My Orders Orders - NARESH CASTRO Comprehensive Metabolic Panel (05/25/18 11:37) Lipase (05/25/18 11:37) Amylase (05/25/18 11:37) Ua Culture If Indicated (05/25/18 11:37) Saline Lock/Iv-Start (05/25/18 11:37) Cbc With Automated Diff (05/25/18 11:37) Ondansetron Injection (Zofran Injectio (05/25/18 11:45) Us Gallbladder [id number] (05/25/18 11:53) Promethazine Injection (Phenergan Injec (05/25/18 13:15) Ct Abdomen/Pelvis W (05/25/18 13:31) Iohexol Injection (Omnipaque 350 Mg/Ml 1 (05/25/18 13:45) Sodium Chloride Flush (Catheter Flush Sy (05/25/18 13:45) Ns (Ivpb) (Sodium Chloride 0.9%) (05/25/18 13:45) Pharmacy Communication (Pharmacy Communi (05/25/18 13:43) Fentanyl Injection (Sublimaze Injection (05/25/18 15:00) Medications Given in ED Current Medications Medications Dose Ordered Sig/Ede Route Start Time Stop Time Status Last Admin Dose Admin Fentanyl Citrate 25 mcg ONCE ONCE IVP 05/25/18 15:00 05/25/18 15:01 DC 05/25/18 15:21 25 MCG Iohexol 100 ml ONCE ONCE IV 05/25/18 13:45 05/25/18 13:46 DC 05/25/18 13:56 100 ML Promethazine HCl 25 mg ONCE ONCE IVP 05/25/18 13:15 05/25/18 13:16 DC 05/25/18 13:15 25 MG Sodium Chloride 10 ml NEEDED PRN IV 05/25/18 13:45 05/25/18 15:33 DC 05/25/18 13:56 10 ML Sodium Chloride 250 ml ONCE ONCE IV 05/25/18 13:45 05/25/18 13:46 DC 05/25/18 13:56 80 ML Vital Signs/I&O 05/25/18 05/25/18 11:25 15:30 Temp 97.6 Pulse 63 63 Resp 18 18 B/P (MAP) 154/82 (106) 154/82 (106) Pulse Ox 95 95 O2 Delivery Room Air Blood Pressure Mean: 106 Progress Progress Note : Time: 14:51 Progress Note I have seen and evaluated the patient. I informed him of normal ultrasound and CT studies. I spoke to Dr. Stewart at this time and he agrees to see the patient tomorrow afternoon for close evaluation. The patient agrees with plans of care, plans for discharge, return precautions were given. Diagnostic Imaging Diagonstic Imaging: Xray, Ultrasound Plain Films/CT/US/NM/MRI: abdomen Comments NAME: RYAN SAMPSON [facility] REC#: [id number] PT STATUS: REG ER : 1950 PHYSICIAN: NARESH CASTRO ADMIT DATE: 05/25/18/ER Draft Date of Exam:05/25/18 CT ABDOMEN/PELVIS W PROCEDURE: CT abdomen and pelvis with contrast. TECHNIQUE: Multiple contiguous axial images were obtained through the abdomen and pelvis after administration of intravenous contrast. INDICATION: Abdominal pain and vomiting COMPARISON: CT abdomen and pelvis of 08/27/2013. FINDINGS: Lower chest: The lung bases are clear. No pericardial or pleural effusion. Peritoneum: No free intraperitoneal air or fluid. Liver and biliary system: The liver is normal. Cholelithiasis. No gallbladder wall thickening or pericholecystic fluid. No extra hepatic biliary duct dilatation. Spleen and Pancreas: Spleen is normal. The pancreas enhances normally without mass lesion or peripancreatic inflammatory changes. Adrenals: Normal. tract: The kidneys enhance normally without suspicious mass or obstruction. There are is a benign cyst in the mid right kidney measuring 1.7 x 1.4 cm. Urinary bladder is distended without wall thickening. The prostate is enlarged measuring 6.4 x 6.0 cm. This has a moderate mass effect on the base of the urinary bladder. GI tract: Stomach is partially distended with fluid and there is no wall thickening. No bowel obstruction. No pericolonic inflammatory changes. Appendix is not seen but there are no inflammatory changes to suggest acute appendicitis. Vasculature and Lymph nodes: Normal caliber aorta with moderate atherosclerotic plaquing. No abdominal or pelvic lymphadenopathy. Musculoskeletal: No concerning osseous lesion. IMPRESSION: 1. No acute obstructive or inflammatory process in the abdomen or pelvis. 2. Marked prostamegaly is unchanged. 3. Chronic cholelithiasis. No CT findings of acute cholecystitis. [place] NAME: RYAN SAMPSON [facility] REC#: [id number] PT STATUS: REG ER : 1950 PHYSICIAN: NARESH CASTRO ADMIT DATE: 05/25/18/ER Draft Date of Exam:05/25/18 US GALLBLADDER [id number] PROCEDURE: US Gallbladder. TECHNIQUE: Multiple real-time grayscale images were obtained over the right upper quadrant in various projections. INDICATION: Right upper quadrant pain. COMPARISON: None available. FINDINGS: The visualized aspects of the right hepatic lobe show no focal mass. The left hepatic lobe is obscured by overlying bowel gas. The pancreas is obscured by overlying bowel gas. The gallbladder is normally distended with multiple mobile shadowing stones present. No gallbladder wall thickening or pericholecystic fluid. Common bile duct is obscured by overlying bowel gas. Right kidney is normal in size measuring 10 cm. No hydronephrosis. Simple cyst is present in the right kidney measuring 1.7 x 1.6 cm. No right upper quadrant ascites. IMPRESSION: 1. Mildly limited examination due to large volume of bowel gas. 2. Cholelithiasis. No ultrasound features to suggest acute cholecystitis. Dictated on workstation # [id number] Dict: 05/25/18 1250 Trans: 05/25/18 1255 [facility] [id number] Interpreted by: KEON HAGEN MD Electronically signed by: Reviewed: Reviewed by Me Departure Impression Primary Impression: Abdominal pain Disposition: HOME, SELF-CARE Condition: Stable/Unchanged Departure-Patient Inst. Decision time for Depature: 14:53 Referrals: TERRY STEWART JACQUELINE S DO (PCP/Family) Primary Care Physician Patient Instructions: Acute Abdomen (Belly Pain), Adult (DC) Add. Discharge Instructions: Take medication as directed. Follow-up with Dr. Stewart has we discussed. Call first thing tomorrow morning and plan for an appointment tomorrow afternoon. Follow-up with Dr. PAULINO within 1 week for recheck. Return back to the emergency room for any worsening symptoms or concerns as needed. All discharge instructions reviewed with patient and/or family. Voiced understanding. Scripts Ondansetron (Zofran Odt) 4 Mg Tab.rapdis 4 MG SL Q4H PRN for NAUSEA/VOMITING-1ST LINE, #20 TAB Prov: NARESH CASTRO 05/25/18 NARESH CASTRO May 25, 2018 12:32
--- NOTE | 2018-05-25 12:56 | Diagnostic Imaging Report ---
PROCEDURE: US Gallbladder. TECHNIQUE: Multiple real-time grayscale images were obtained over the right upper quadrant in various projections. INDICATION: Right upper quadrant pain. COMPARISON: None available. FINDINGS: The visualized aspects of the right hepatic lobe show no focal mass. The left hepatic lobe is obscured by overlying bowel gas. The pancreas is obscured by overlying bowel gas. The gallbladder is normally distended with multiple mobile shadowing stones present. No gallbladder wall thickening or pericholecystic fluid. Common bile duct is obscured by overlying bowel gas. Right kidney is normal in size measuring 10 cm. No hydronephrosis. Simple cyst is present in the right kidney measuring 1.7 x 1.6 cm. No right upper quadrant ascites. IMPRESSION: 1. Mildly limited examination due to large volume of bowel gas. 2. Cholelithiasis. No ultrasound features to suggest acute cholecystitis. Dictated by: Dictated on workstation # [id number]
[2018-05-25] MEDS ORDERED: PROMETHAZINE INJ 25 MG/ML (PHENERGAN) AMP IVP ONE (13:15)
[2018-05-25] MEDS ORDERED: IOHEXOL 350 MG/ML 100 ML (OMNIPAQUE 350) VIAL IV ONE (13:45)
[2018-05-25] MEDS ORDERED: NS 250 ML (IVPB) BAG IV ONE (13:45)
[2018-05-25] MEDS ORDERED: CATHETER FLUSH 10 ML SYR IV PRN (13:45)
[2018-05-25 14:02] LABS: CLARITY,URINE CLEAR; COLOR,URINE YELLOW; GLUCOSE, URINE (UA) 3+ (NEGATIVE); KETONES,URINE 2+ (NEGATIVE); LEUKOCYTE ESTERASE ,URINE 1+ (NEGATIVE); NITRITE,URINE NEGATIVE (NEGATIVE); PH,URINE 5 (5-9); PROTEIN,URINE 3+ (NEGATIVE); UROBILINOGEN,URINE 1 MG/DL (NORMAL)
[2018-05-25 14:29] LABS: BILIRUBIN,URINE 1+ (NEGATIVE)
[2018-05-25 14:30] LABS: AMORPHOUS SEDIMENT,UR RARE AMOR URATES /LPF; BACTERIA,URINE TRACE /HPF
--- NOTE | 2018-05-25 14:49 | Diagnostic Imaging Report ---
PROCEDURE: CT abdomen and pelvis with contrast. TECHNIQUE: Multiple contiguous axial images were obtained through the abdomen and pelvis after administration of intravenous contrast. INDICATION: Abdominal pain and vomiting COMPARISON: CT abdomen and pelvis of 08/27/2013. FINDINGS: Lower chest: The lung bases are clear. No pericardial or pleural effusion. Peritoneum: No free intraperitoneal air or fluid. Liver and biliary system: The liver is normal. Cholelithiasis. No gallbladder wall thickening or pericholecystic fluid. No extra hepatic biliary duct dilatation. Spleen and Pancreas: Spleen is normal. The pancreas enhances normally without mass lesion or peripancreatic inflammatory changes. Adrenals: Normal. tract: The kidneys enhance normally without suspicious mass or obstruction. There are is a benign cyst in the mid right kidney measuring 1.7 x 1.4 cm. Urinary bladder is distended without wall thickening. The prostate is enlarged measuring 6.4 x 6.0 cm. This has a moderate mass effect on the base of the urinary bladder. GI tract: Stomach is partially distended with fluid and there is no wall thickening. No bowel obstruction. No pericolonic inflammatory changes. Appendix is not seen but there are no inflammatory changes to suggest acute appendicitis. Vasculature and Lymph nodes: Normal caliber aorta with moderate atherosclerotic plaquing. No abdominal or pelvic lymphadenopathy. Musculoskeletal: No concerning osseous lesion. IMPRESSION: 1. No acute obstructive or inflammatory process in the abdomen or pelvis. 2. Marked prostamegaly is unchanged. 3. Chronic cholelithiasis. No CT findings of acute cholecystitis. Dictated by: Dictated on workstation # [id number]
[2018-05-25] MEDS ORDERED: fentaNYL INJECTION 100 MCG/2 ML AMP IVP ONE (15:00)
[2018-05-25] MEDS ORDERED: ONDA4TAB8 SL (15:08)
[2018-05-25 15:30] VITALS: BP 154/82
== END 2018-05-25 15:33 | disposition home or self-care (01) ==
LOC: EDUNIT# 11:22 → ER 11:24
DX: R10.11 Right upper quadrant pain (principal); R11.2 Nausea with vomiting, unspecified; G47.30 Sleep apnea, unspecified; I48.91 Unspecified atrial fibrillation; I25.10 Atherosclerotic heart disease of native coronary artery without angina pectoris; I25.2 Old myocardial infarction; E78.00 Pure hypercholesterolemia, unspecified; I10 Essential (primary) hypertension; E11.9 Type 2 diabetes mellitus without complications; F32.9 Major depressive disorder, single episode, unspecified; Z86.73 Personal history of transient ischemic attack (TIA), and cerebral infarction without residual deficits; Z79.82 Long term (current) use of aspirin; Z87.442 Personal history of urinary calculi; Z79.51 Long term (current) use of inhaled steroids; Z79.4 Long term (current) use of insulin; Z79.01 Long term (current) use of anticoagulants; Z87.891 Personal history of nicotine dependence; Z95.1 Presence of aortocoronary bypass graft; Z95.810 Presence of automatic (implantable) cardiac defibrillator
CPT/HCPCS: 36415; 74177; 76705; 80053; 81000; 82150; 82962; 83690; 85025; 96374; 96375

== ENCOUNTER 2019-03-27 05:05 | Emergency (ER) | payer MEDICARE ==
[~2019-03-27] VITALS: Ht 185.4 cm; Wt 108.0 kg
[~2019-03-27 05:05] MED LIST changes: +ONDA4TAB8 SL; -RIVA20TA PO; +RIVA20TA2 PO
--- NOTE | 2019-03-27 05:05 | NUR ---
brought in by [facility] cpr in progress. pt reported to have called for help approx. 0430. i/o to left leg with ns via pressure bag. monitors applied cpr continued. 0508- no pulse, 1amp epi/atropine given via i/o cpr continued. 0510- 1 amp d50 given i/o 0511- 1 amp epi given i/o, pt asystole, no pulse noted. 0512- glucose 277, 1 amp atropine given i/o 0514- 1 amp epi given i/o 0515- 1 amp atropine given i/o, no pulse/asystole 0518- no pulse, cpr continued 0520-compressions stopped, asystole on monitor, no palpable pulse. tod called by dr ro. 0530- family at bedside.
[2019-03-27] MEDS ORDERED: ATROPINE INJECTION 1 MG/10 ML SYR (ABBOTT) INJ ONE (05:09)
[2019-03-27] MEDS ORDERED: DEXTROSE 50% 50 ML (IMS) SYR INJ ONE (05:09)
[2019-03-27] MEDS ORDERED: EPINEPHrine 0.1 MG/ML 10 ML (HOSPIRA) SYR IJ ONE (05:09)
--- NOTE | 2019-03-27 05:39 | NUR ---
MAXIMUS CHEEMA, [facility], HERE AT THIS TIME.
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
--- NOTE | 2019-03-27 05:50 | NUR ---
release of body consent obtained, haydee moreno called.
--- NOTE | 2019-03-27 05:55 | NUR ---
PT REQUESTS TO LEAVE [facility] [place] ON PT AT THIS TIME. WILL NOTIFY [facility] STAFF ON ARRIVAL.
--- NOTE | 2019-03-27 06:30 | NUR ---
[facility] STAFF HERE AT THIS TIME.
[2019-03-27 06:35] VITALS: BP 0/0
== END 2019-03-27 06:35 | disposition expired ==
LOC: EDUNIT# 05:07 → ER 05:08
DX: I46.9 Cardiac arrest, cause unspecified (principal); J42 Unspecified chronic bronchitis; I10 Essential (primary) hypertension; E78.00 Pure hypercholesterolemia, unspecified; I25.2 Old myocardial infarction; I25.10 Atherosclerotic heart disease of native coronary artery without angina pectoris; I48.91 Unspecified atrial fibrillation; G47.30 Sleep apnea, unspecified; K21.9 Gastro-esophageal reflux disease without esophagitis; E04.2 Nontoxic multinodular goiter; E11.10 Type 2 diabetes mellitus with ketoacidosis without coma; F32.9 Major depressive disorder, single episode, unspecified; Z86.73 Personal history of transient ischemic attack (TIA), and cerebral infarction without residual deficits; Z90.49 Acquired absence of other specified parts of digestive tract; Z95.810 Presence of automatic (implantable) cardiac defibrillator; Z95.5 Presence of coronary angioplasty implant and graft; Z95.1 Presence of aortocoronary bypass graft; Z79.01 Long term (current) use of anticoagulants; Z79.82 Long term (current) use of aspirin; Z79.4 Long term (current) use of insulin; Z87.891 Personal history of nicotine dependence
CPT/HCPCS: 36680; 82962